=== PATIENT | male | born 1955 | race Caucasian/White ===

== ENCOUNTER 2023-10-17 07:50 | Inpatient (IN) ==
--- NOTE | 2023-10-17 08:09 | Emergency Department Note ---
Impression & Plan Respiratory failure, CHF (congestive heart failure), Respiratory acidosis, Anemia, Thrombocytopenia, Malignancy ED Provider Note NAME: MELISSA DASILVA AGE: 67 SEX: M : 1955 ARRIVES VIA: Ambulance INFORMANT: [Patient][EMS] ED PROVIDER(S): [Harsha Rodríguez MD] CHIEF COMPLAINT: Shortness of breath, back pain HISTORY OF PRESENT ILLNESS: The patient is a 67-year-old male with COPD who as per EMS, fell this morning. When they arrived, his O2 saturation was low, he was short of breath and complaining of back pain. He was given a DuoNeb. He was tried on CPAP without good result. He was maintained on a nonrebreather mask on the way to the hospital. The patient is a very poor historian. He is not forthcoming when questioned about his situation this morning. PMHx/PSHx/Social Hx: See Below PHYSICAL EXAM: GENERAL: Patient is in mild respiratory distress. HEENT: No acute trauma, normocephalic atraumatic, mucous membranes moist, no nasal congestion. NECK: No stridor, no adenopathy, no meningismus, trachea is midline. LUNGS: Clear to auscultation bilaterally when listening anterior, no wheeze, no rhonchi, breath sounds equal. Mild respiratory distress. Increased respiratory rate. Diminished breath sounds noted. HEART: Without murmurs gallops or rubs, regular rate and rhythm. Heart tones are quite distant. ABDOMEN: Soft, nontender, no peritonitis. Nontender umbilical hernia noted. EXTREMITIES: No cyanosis, full range of motion of all the joints without pain or difficulty. Moderate bilateral pedal edema with some chronic skin change. NEUROLOGIC: Somnolent, no acute motor or sensory deficits, no focal weakness. SKIN: No jaundice, no diaphoresis. DIFFERENTIAL DIAGNOSIS: Intracranial bleeding, pneumonia, CHF, CO2 retention, exacerbation of COPD, spine injury, anemia, among others. EMERGENCY DEPARTMENT PROCEDURES: MEDICAL DECISION MAKING: There is no leukocytosis. The patient was anemic with a hemoglobin just over 8. Platelet count was quite low in the 20s. Both the anemia and lower platelet count were new looking back at previous testing. No coagulopathy. Bedside ABG showed acidosis with a pH of 7.18. There was CO2 retention with a value of 114. ABG did show respiratory acidosis. There was no renal failure. CO2 was high at 41 consistent with the CO2 retention. Lactic acid level was not elevated making severe sepsis less likely. There was no concerning liver enzyme elevation. ECG showed a sinus tachycardia, no acute ischemia. Cardiac enzyme testing x 1 was not consistent with acute cardiac injury. Urinalysis did not show findings of infection. Respiratory bio fire was negative. Babesia and anaplasmosis screens were negative. Lyme disease testing was negative. Chest film did show heart failure with some potential congestion/mass to the lower lungs. Brain CT showed no acute bleed or mass effect. C-spine CT showed no acute fracture. Thoracic and lumbar spinal CTs showed no acute fractures. On exam, the patient was somnolent, at times hypoxic. The patient was aggressively managed given his presentation. He was immediately placed on BiPAP. He had a Graham catheter placed and was given IV Lasix. He received IV cefepime as empiric antibiotic coverage. He was ordered for DuoNeb and IV Solu-Medrol. The patient has made some improvement with the above interventions. I spoke with his brother who arrived at bedside. The patient would not want to be intubated unless all else failed. I did speak with the industrial organizational psychologist, Dr. Lopes. He spent a long time talking with the family. Patient will be hospitalized but the decision has been made to avoid intubation, the patient will be a DNR. The patient has multiple findings today that are critical. He may not survive this hospital stay. His family is aware. I did speak with the on-call hospitalist. Case management has been involved. Prior/Outside records/notes reviewed: Today's EMS notes describing his presentation and transport to this hospital. ECG per my interpretation: Indication was weakness and shortness of breath. The ECG shows a sinus tachycardia with a rate of 107. There is no acute ST elevation, no PVCs. The QTc is 440. Continuous Cardiac Monitoring per my interpretation: An order was placed for continuous cardiac monitoring. The monitor shows a rate of 104 with sinus tachycardia. Imaging/x-ray results per my interpretation: Chest x-ray shows what appears to be heart failure. There is some congestion at the lower lung consistent with potential infiltrate versus mass. Chronic Medical/Social conditions affecting care: History of COPD. Care/Management discussed with: Ski Top Trimmer here at [facility]-Dr. Lopes. Case management and the on-call hospitalist. Level of care consideration(s): After review of the information above and other included data: --I believe the patient requires escalation of care to admission Critical Care Note: I have personally spent 62 minutes of critical care time in the direct management of this patient. This includes bedside care, interpretation of diagnostic studies, and testing, discussion with consultants, patient, and family members, and other required patient management activities. This 62 minutes is in excess of all separately billable procedures. DISPOSITION: Admission Past Med/Surg History Problem List (Updated 10/17/23 @ 14:44 by Harsha Rodríguez MD) Malignancy (Acute) Thrombocytopenia (Acute) Anemia (Acute) Respiratory acidosis (Acute) CHF (congestive heart failure) (Acute) Respiratory failure (Acute) Cor pulmonale Acute on chronic heart failure with preserved ejection fraction Acute respiratory failure with hypoxia Diabetes mellitus Goals of care, counseling/discussion Ex-smoker Restrictive lung disease Exertional shortness of breath Obesity Chronic respiratory failure with hypoxia and hypercapnia Hypersomnia Medical History HTN (hypertension) Solitary fibrous neoplasm COPD with emphysema Social History Smoking Status: Unknown if ever smoked Tobacco Type: Cigarettes Age Started Using Tobacco: 11; Age Quit Using Tobacco: 66; packs per day: 3; Second Hand Exposure: Yes; Do You Dip or Chew Tobacco: No; Hx Alcohol Use: No Preferred Language: Albanian Feels Safe at Home: Yes Allergies Allergies Allergy/AdvReac Type Severity Reaction Status Date / Time No Known Allergies Allergy Verified 10/17/23 08:44 Home Meds Home Medications Medication Instructions Recorded Confirmed ascorbate calcium (vitamin C) 500 500 mg PO DAILY 05/17/23 10/17/23 mg tablet cranberry 400 mg capsule 400 mg PO DAILY 05/17/23 10/17/23 garlic 1,000 mg capsule 1,000 mg PO DAILY 05/17/23 10/17/23 hydrochlorothiazide 25 mg tablet 25 mg PO QDAY 05/17/23 10/17/23 lisinopril 10 mg tablet 10 mg PO DAILY 05/17/23 10/17/23 metoprolol succinate 25 mg 25 mg PO DAILY 05/17/23 10/17/23 tablet,extended release 24 hr saw palmetto 500 mg capsule 500 mg PO BID 05/17/23 10/17/23 turmeric 100 mg-diomedes 150 1 cap PO UD 05/17/23 10/17/23 mg-olive 50 mg-oreg 150 mg-capryl capsule metformin 500 mg tablet,extended 500 mg PO QAM 10/17/23 10/17/23 release 24 hr rosuvastatin 20 mg tablet 20 mg PO QAM 10/17/23 10/17/23 Previous Rx's Medication Instructions Recorded budesonide 160 mcg-glycopyr 9 2 inh inhalation BID #10.7 grams 05/18/23 mcg-formot 4.8 mcg/actuation HFA inhaler (JANZZzTheySayphere) ipratropium 0.5 mg-albuterol 3 mg 3 ml inhalation Q8H PRN shortness 05/18/23 (2.5 mg base)/3 mL nebulization of breath or wheezing #180 mL soln zolpidem 5 mg tablet 5 mg PO ONCE PRN sleep #2 tabs 08/18/23 Auto Titrating CPAP #1 ea 08/31/23 CPAP Supplies #1 ea 08/31/23 Results & Data (ED) Vital Signs Vital Signs - 24 hr 10/17/23 08:00 10/17/23 08:03 10/17/23 08:03 Pulse Rate 108 H 117 H Pulse Rate from SpO2 Sensor 108 H Pulse Rhythm Respiratory Rate 24 Respiratory Effort / Characteristics Short of Breath Respiratory Depth Respiratory Pattern Tachypnea Blood Pressure 141/47 H Blood Pressure Mean 78 Pulse Oximetry 95 Oxygen Delivery Method BiPAP Oxygen Flow Rate Fraction of Inspired Oxygen 50 SaO2/FiO2 Ratio Sepsis Recent Fever Within 48 Hours Sepsis New/Unexplained Change in Mental Status Sepsis Action Taken by Nursing 10/17/23 08:03 10/17/23 08:03 10/17/23 08:22 Pulse Rate 108 H 104 H Pulse Rate from SpO2 Sensor Pulse Rhythm Respiratory Rate 25 H 22 Respiratory Effort / Characteristics Spontaneous Labored Short of Breath Spontaneous Respiratory Depth Shallow Respiratory Pattern Tachypnea Blood Pressure 141/74 H Blood Pressure Mean 96 Pulse Oximetry 95 95 97 Oxygen Delivery Method Non-rebreather Non-rebreather Oxygen Flow Rate 15 15 Fraction of Inspired Oxygen 80 SaO2/FiO2 Ratio Sepsis Recent Fever Within 48 Hours No Sepsis New/Unexplained Change in Mental Status Yes Sepsis Action Taken by Nursing Physician Notified 10/17/23 08:42 10/17/23 09:01 10/17/23 09:06 Pulse Rate 102 H 96 H Pulse Rate from SpO2 Sensor 104 H 96 H Pulse Rhythm Respiratory Rate 24 22 Respiratory Effort / Characteristics Respiratory Depth Respiratory Pattern Blood Pressure 127/71 Blood Pressure Mean 89 Pulse Oximetry 89 L 90 50 L Oxygen Delivery Method BiPAP BiPAP Oxygen Flow Rate Fraction of Inspired Oxygen 50 50 SaO2/FiO2 Ratio Sepsis Recent Fever Within 48 Hours Sepsis New/Unexplained Change in Mental Status Sepsis Action Taken by Nursing 10/17/23 09:30 10/17/23 09:38 10/17/23 09:53 Pulse Rate 96 H 96 H 91 H Pulse Rate from SpO2 Sensor 95 H Pulse Rhythm Regular Respiratory Rate 20 22 22 Respiratory Effort / Characteristics Respiratory Depth Respiratory Pattern Blood Pressure 142/74 H 142/74 H Blood Pressure Mean 96 96 Pulse Oximetry 97 95 93 Oxygen Delivery Method BiPAP BiPAP BiPAP Oxygen Flow Rate Fraction of Inspired Oxygen 50 50 50 SaO2/FiO2 Ratio 186 Sepsis Recent Fever Within 48 Hours Sepsis New/Unexplained Change in Mental Status Sepsis Action Taken by Nursing 10/17/23 10:01 10/17/23 10:25 10/17/23 10:30 Pulse Rate 91 H 87 Pulse Rate from SpO2 Sensor 92 H 88 Pulse Rhythm Respiratory Rate 22 20 Respiratory Effort / Characteristics Respiratory Depth Respiratory Pattern Blood Pressure 119/69 124/68 Blood Pressure Mean 85 86 Pulse Oximetry 89 L 94 Oxygen Delivery Method BiPAP Oxygen Flow Rate Fraction of Inspired Oxygen 50 50 50 SaO2/FiO2 Ratio Sepsis Recent Fever Within 48 Hours Sepsis New/Unexplained Change in Mental Status Sepsis Action Taken by [facility] Medications Current Medication List: was personally reviewed by me Laboratory Data Attestation: I reviewed the patient's lab results. 10/17/23 11:18 10/17/23 08:00 Lab Results 10/17/23 10/17/23 10/17/23 Range/Units 08:00 08:06 08:07 WBC 6.11 (4.8-10.8) K/ul RBC 3.07 L (4.70-6.10) M/uL Hgb 8.4 L (14.0-18.0) g/dl POC Hgb 11.2 L (14.0-18.0) g/dl Hct 29.8 L (42.0-52.0) % POC Hct 33 L (42-52) % MCV 97.1 (80.0-100.0) fL MCH 27.4 (25.0-34.0) pg MCHC 28.2 L (32.0-36.0) g/dL RDW Std Deviation 52.1 H (36.4-46.3) fL RDW Coeff of Constantino 14.7 H (11.5-14.5) % Plt Count 29 L* (130-400) K/uL MPV 13.4 H (9.4-12.4) fL Immature Gran % (Auto) 1.3 % Neut % (Auto) 76.6 % Lymph % (Auto) 14.1 % [place] % (Auto) 6.7 % Eos % (Auto) 1.1 % Baso % (Auto) 0.2 % Neut # (Auto) 4.68 (1.40-6.50) K/uL Lymph # (Auto) 0.86 L (1.20-3.40) K/uL [place] # (Auto) 0.41 (0.11-0.59) K/uL Eos # (Auto) 0.07 (0.00-0.50) K/uL Baso # (Auto) 0.01 (0.00-0.20) K/uL Immature Gran # (Auto) 0.08 (0.01-0.20) K/uL Platelet Estimate Signific. Decreased L (Normal) PT Cancelled INR Cancelled APTT Cancelled PTT Ratio Cancelled POC pH 7.18 L* (7.35-7.45) POC pCO2 114 H (35-46) mmHg POC pO2 45 L (80-95) mmHg POC HCO3 43 H (19-24) lisbeth/L POC Total CO2 > 40 H* (24-31) mmol/L POC Base Excess 14.0 H (-9-1.8) lisbeth/L POC ABG O2 Sat 64.0 L (90-95) % POC Sodium 143 (135-144) mmol/L Sodium 145 (136-145) mmol/L POC Potassium 3.9 (3.3-5.0) mmol/L Potassium 4.2 (3.5-5.1) mmol/L Chloride 100 (98-107) mmol/L Carbon Dioxide 41 H* (21-32) mmol/L Anion Gap 4 (3-11) BUN 22 (6-23) mg/dl Creatinine 1.02 (0.6-1.4) mg/dl Est Cr Clr Drug Dosing 91.6 ml/min Est GFR ( Amer) 87.1 ml/min Est GFR (Non-Af Amer) 75.2 ml/min BUN/Creatinine Ratio 21.6 H (10-20) Glucose 194 H (70-99(Fasting)) mg/dl Lactate 1.7 (0.4-2.0) mmol/L Calcium 9.4 (8.6-10.3) mg/dl Magnesium 2.1 (1.7-2.4) mg/dl Total Bilirubin 0.3 (0.2-1.0) mg/dl AST 19 (13-39) U/L ALT 19 (7-52) U/L Alkaline Phosphatase 72 (34-104) U/L Troponin I High Sens 12.5 (0-20) pg/ml Total Protein 7.2 (6.0-8.3) gm/dl Albumin 4.0 (3.4-5.0) gm/dl Globulin 3.2 (2.5-4.0) gm/dl Albumin/Globulin Ratio 1.3 (0.9-2) Urine Color Urine Appearance (Clear) Urine pH (4.5-7.5) Ur Specific [place] (1.000-1.030) Urine Protein (Negative) Urine Glucose (UA) (Negative) Urine Ketones (Negative) Urine Blood (Negative) Urine Nitrite (Negative) Urine Bilirubin (Negative) Urine Urobilinogen (Negative) Ur Leukocyte Esterase (Negative) Urine WBC (Auto) (0-5) /hpf Urine RBC (Auto) (0-2) /hpf U Hyaline Cast (Auto) (0-2) /lpf U Epithel Cells (Auto) (0-2) /hpf Urine Bacteria (Auto) (None Seen) Adenovirus (PCR) (NotDetected) Anaplasma Smear Babesia Smear B. pertussis DNA (PCR) (NotDetected) B.parapertussis DNA PCR (NotDetected) Lyme Disease Screen (Negative) C. pneumoniae DNA (PCR) (NotDetected) Coronavirus OC43 (PCR) (NotDetected) Coronavirus HKU1 (PCR) (NotDetected) Coronavirus 229E (PCR) (NotDetected) SARS-CoV-2 (PCR) (NotDetected) Coronavirus NL63 (PCR) (NotDetected) Human Metapneumovir PCR (NotDetected) Influenza Type A (PCR) (NotDetected) Influenza Type B (PCR) (NotDetected) M. pneumoniae (PCR) (NotDetected) Parainfluenza 1 (PCR) (NotDetected) Parainfluenza 2 (PCR) (NotDetected) Parainfluenza 3 (PCR) (NotDetected) Parainfluenza 4 (PCR) (NotDetected) RSV (PCR) (NotDetected) Entero/Rhino (PCR) (NotDetected) 10/17/23 10/17/23 10/17/23 Range/Units 08:38 09:14 09:20 WBC (4.8-10.8) K/ul RBC (4.70-6.10) M/uL Hgb (14.0-18.0) g/dl POC Hgb (14.0-18.0) g/dl Hct (42.0-52.0) % POC Hct (42-52) % MCV (80.0-100.0) fL MCH (25.0-34.0) pg MCHC (32.0-36.0) g/dL RDW Std Deviation (36.4-46.3) fL RDW Coeff of Constantino (11.5-14.5) % Plt Count (130-400) K/uL MPV (9.4-12.4) fL Immature Gran % (Auto) % Neut % (Auto) % Lymph % (Auto) % [place] % (Auto) % Eos % (Auto) % Baso % (Auto) % Neut # (Auto) (1.40-6.50) K/uL Lymph # (Auto) (1.20-3.40) K/uL [place] # (Auto) (0.11-0.59) K/uL Eos # (Auto) (0.00-0.50) K/uL Baso # (Auto) (0.00-0.20) K/uL Immature Gran # (Auto) (0.01-0.20) K/uL Platelet Estimate (Normal) PT INR APTT PTT Ratio POC pH (7.35-7.45) POC pCO2 (35-46) mmHg POC pO2 (80-95) mmHg POC HCO3 (19-24) lisbeth/L POC Total CO2 (24-31) mmol/L POC Base Excess (-9-1.8) lisbeth/L POC ABG O2 Sat (90-95) % POC Sodium (135-144) mmol/L Sodium (136-145) mmol/L POC Potassium (3.3-5.0) mmol/L Potassium (3.5-5.1) mmol/L Chloride (98-107) mmol/L Carbon Dioxide (21-32) mmol/L Anion Gap (3-11) BUN (6-23) mg/dl Creatinine (0.6-1.4) mg/dl Est Cr Clr Drug Dosing ml/min Est GFR ( Amer) ml/min Est GFR (Non-Af Amer) ml/min BUN/Creatinine Ratio (10-20) Glucose (70-99(Fasting)) mg/dl Lactate (0.4-2.0) mmol/L Calcium (8.6-10.3) mg/dl Magnesium (1.7-2.4) mg/dl Total Bilirubin (0.2-1.0) mg/dl AST (13-39) U/L ALT (7-52) U/L Alkaline Phosphatase (34-104) U/L Troponin I High Sens (0-20) pg/ml Total Protein (6.0-8.3) gm/dl Albumin (3.4-5.0) gm/dl Globulin (2.5-4.0) gm/dl Albumin/Globulin Ratio (0.9-2) Urine Color Yellow Urine Appearance Clear (Clear) Urine pH 6.0 (4.5-7.5) Ur Specific [place] 1.019 (1.000-1.030) Urine Protein 3+ H (Negative) Urine Glucose (UA) Negative (Negative) Urine Ketones Negative (Negative) Urine Blood Negative (Negative) Urine Nitrite Negative (Negative) Urine Bilirubin Negative (Negative) Urine Urobilinogen Negative (Negative) Ur Leukocyte Esterase Negative (Negative) Urine WBC (Auto) 0-5 (0-5) /hpf Urine RBC (Auto) 3-5 H (0-2) /hpf U Hyaline Cast (Auto) 3-5 H (0-2) /lpf U Epithel Cells (Auto) 0-2 (0-2) /hpf Urine Bacteria (Auto) None Seen (None Seen) Adenovirus (PCR) Not Detected (NotDetected) Anaplasma Smear See Comment Babesia Smear See Comment B. pertussis DNA (PCR) Not Detected (NotDetected) B.parapertussis DNA PCR Not Detected (NotDetected) Lyme Disease Screen Negative (Negative) C. pneumoniae DNA (PCR) Not Detected (NotDetected) Coronavirus OC43 (PCR) Not Detected (NotDetected) Coronavirus HKU1 (PCR) Not Detected (NotDetected) Coronavirus 229E (PCR) Not Detected (NotDetected) SARS-CoV-2 (PCR) Not Detected (NotDetected) Coronavirus NL63 (PCR) Not Detected (NotDetected) Human Metapneumovir PCR Not Detected (NotDetected) Influenza Type A (PCR) Not Detected (NotDetected) Influenza Type B (PCR) Not Detected (NotDetected) M. pneumoniae (PCR) Not Detected (NotDetected) Parainfluenza 1 (PCR) Not Detected (NotDetected) Parainfluenza 2 (PCR) Not Detected (NotDetected) Parainfluenza 3 (PCR) Not Detected (NotDetected) Parainfluenza 4 (PCR) Not Detected (NotDetected) RSV (PCR) Not Detected (NotDetected) Entero/Rhino (PCR) Not Detected (NotDetected) 10/17/23 10/17/23 Range/Units 09:30 10:13 WBC (4.8-10.8) K/ul RBC (4.70-6.10) M/uL Hgb (14.0-18.0) g/dl POC Hgb 10.9 L (14.0-18.0) g/dl Hct (42.0-52.0) % POC Hct 32 L (42-52) % MCV (80.0-100.0) fL MCH (25.0-34.0) pg MCHC (32.0-36.0) g/dL RDW Std Deviation (36.4-46.3) fL RDW Coeff of Constantino (11.5-14.5) % Plt Count (130-400) K/uL MPV (9.4-12.4) fL Immature Gran % (Auto) % Neut % (Auto) % Lymph % (Auto) % [place] % (Auto) % Eos % (Auto) % Baso % (Auto) % Neut # (Auto) (1.40-6.50) K/uL Lymph # (Auto) (1.20-3.40) K/uL [place] # (Auto) (0.11-0.59) K/uL Eos # (Auto) (0.00-0.50) K/uL Baso # (Auto) (0.00-0.20) K/uL Immature Gran # (Auto) (0.01-0.20) K/uL Platelet Estimate (Normal) PT 10.8 INR 1.0 APTT 21 PTT Ratio 0.8 POC pH 7.25 L (7.35-7.45) POC pCO2 99 H (35-46) mmHg POC pO2 52 L (80-95) mmHg POC HCO3 44 H (19-24) lisbeth/L POC Total CO2 > 40 H* (24-31) mmol/L POC Base Excess 16.0 H (-9-1.8) lisbeth/L POC ABG O2 Sat 77.0 L (90-95) % POC Sodium 144 (135-144) mmol/L Sodium (136-145) mmol/L POC Potassium 3.9 (3.3-5.0) mmol/L Potassium (3.5-5.1) mmol/L Chloride (98-107) mmol/L Carbon Dioxide (21-32) mmol/L Anion Gap (3-11) BUN (6-23) mg/dl Creatinine (0.6-1.4) mg/dl Est Cr Clr Drug Dosing ml/min Est GFR ( Amer) ml/min Est GFR (Non-Af Amer) ml/min BUN/Creatinine Ratio (10-20) Glucose (70-99(Fasting)) mg/dl Lactate (0.4-2.0) mmol/L Calcium (8.6-10.3) mg/dl Magnesium (1.7-2.4) mg/dl Total Bilirubin (0.2-1.0) mg/dl AST (13-39) U/L ALT (7-52) U/L Alkaline Phosphatase (34-104) U/L Troponin I High Sens (0-20) pg/ml Total Protein (6.0-8.3) gm/dl Albumin (3.4-5.0) gm/dl Globulin (2.5-4.0) gm/dl Albumin/Globulin Ratio (0.9-2) Urine Color Urine Appearance (Clear) Urine pH (4.5-7.5) Ur Specific [place] (1.000-1.030) Urine Protein (Negative) Urine Glucose (UA) (Negative) Urine Ketones (Negative) Urine Blood (Negative) Urine Nitrite (Negative) Urine Bilirubin (Negative) Urine Urobilinogen (Negative) Ur Leukocyte Esterase (Negative) Urine WBC (Auto) (0-5) /hpf Urine RBC (Auto) (0-2) /hpf U Hyaline Cast (Auto) (0-2) /lpf U Epithel Cells (Auto) (0-2) /hpf Urine Bacteria (Auto) (None Seen) Adenovirus (PCR) (NotDetected) Anaplasma Smear Babesia Smear B. pertussis DNA (PCR) (NotDetected) B.parapertussis DNA PCR (NotDetected) Lyme Disease Screen (Negative) C. pneumoniae DNA (PCR) (NotDetected) Coronavirus OC43 (PCR) (NotDetected) Coronavirus HKU1 (PCR) (NotDetected) Coronavirus 229E (PCR) (NotDetected) SARS-CoV-2 (PCR) (NotDetected) Coronavirus NL63 (PCR) (NotDetected) Human Metapneumovir PCR (NotDetected) Influenza Type A (PCR) (NotDetected) Influenza Type B (PCR) (NotDetected) M. pneumoniae (PCR) (NotDetected) Parainfluenza 1 (PCR) (NotDetected) Parainfluenza 2 (PCR) (NotDetected) Parainfluenza 3 (PCR) (NotDetected) Parainfluenza 4 (PCR) (NotDetected) RSV (PCR) (NotDetected) Entero/Rhino (PCR) (NotDetected) Administered Medications Discontinued Medications Albuterol (Albut/Ipratrop 3mg/0.5mg Neb 3 Ml Vial) 3 ml NEB NOW STA; Protocol Stop: 10/17/23 08:01 Last Admin: 10/17/23 13:12 Dose: Not Given Documented By: MARIN Furosemide (Furosemide 40 Mg/4 Ml Vial) 40 mg IV ONE ONE Stop: 10/17/23 08:47 Last Admin: 10/17/23 09:07 Dose: 40 mg Documented By: SHIRLEY Cefepime HCl (Maxipime) 2,000 mg in 20 mls @ 5 mls/min IV NOW STA; Protocol Stop: 10/17/23 08:50 Last Admin: 10/17/23 09:07 Dose: 5 mls/min Documented By: SHIRLEY Vancomycin HCl 2,750 mg/ (Sodium Chloride) 555 mls @ 200 mls/hr IV NOW ONE Stop: 10/17/23 13:46 Last Infusion: 10/17/23 14:11 Dose: Infused Documented By: Admin: 10/17/23 11:12 Dose: 200 mls/hr Documented By: FERMÍN Metronidazole (Flagyl) 500 mg in 100 mls @ 100 mls/hr IV NOW STA; Protocol Stop: 10/17/23 11:54 Last Infusion: 10/17/23 13:11 Dose: Infused Documented By: Admin: 10/17/23 11:02 Dose: 100 mls/hr Documented By: FERMÍN Methylprednisolone (Methylprednisolone 125 Mg/2 Ml Vial) 60 mg IV NOW STA Stop: 10/17/23 08:02 Last Admin: 10/17/23 08:20 Dose: 0.9 mg Documented By: NATHANAEL Metronidazole (Metronidazole 500 Mg/100 Ml Bag) Confirm Administered Dose 500 mg IV .STK-MED ONE Stop: 10/17/23 10:56 Last Admin: 10/17/23 11:02 Dose: Not Given Documented By: FERMÍN Imaging Data Radiologist's Impression: Chest X-Ray 10/17/23 08:00 XR chest 1V portable HISTORY: 67 years-old Male Dyspnea acute shortness of breath COMPARISON: None TECHNIQUE: AP view of the chest FINDINGS: Cardiac silhouette is enlarged. Lung apices are partially obscured by the patient's chin. No pneumothorax. Layering right pleural effusion with right greater than left bibasilar consolidation. Pulmonary vascular congestion with interstitial coarsening and intermixed airspace densities. Bones appear grossly intact. IMPRESSION: 1. Cardiomegaly with mixed interstitial and alveolar opacities suggestive of pulmonary edema versus multifocal pneumonia. 2. Layering right pleural effusion. ACT 112: Negative or not required by law. The above report was generated using voice recognition software. It may contain grammatical, syntax or spelling errors. Electronically signed by: Manny Paredes M.D. 10/17/2023 8:[address] 10/17/23 08:09 CT SCAN OF THE CERVICAL SPINE CLINICAL HISTORY: Fall. COMPARISON STUDY: PET/CT dated 09/13/2022. TECHNIQUE: CT scan of the cervical spine is performed from the skull base to the upper thoracic spine. Images are reviewed in the axial, sagittal, and coronal planes. IV contrast was not administered for this examination. A dose lowering technique was utilized adhering to the principles of ALARA. FINDINGS: Skeletal structures: The skeletal structures are osteopenic. There is no evidence of fracture or subluxation involving the cervical spine. Vertebral body height and alignment are maintained. Mild anterior wedging of C6 is similar to previous, as is a minimal chronic superior endplate compression deformity of T2. There is straightening of the cervical lordosis. Anterior osteophytes are seen throughout. The odontoid process and lateral masses are intact. The atlantoaxial articulation is preserved noting productive degenerative change. The spinous processes appear intact. There is mild multilevel cervical spondylosis. Uncovertebral and facet arthropathy contribute to neural foraminal narrowing at several levels. Intervertebral discs: There is mild disc space narrowing at C6-C7 and C7-T1. The remaining disc spaces appear maintained. Central canal: A posterior disc osteophyte complex at C6-C7 may contribute to acquired compromise of the central canal. Soft tissues: The prevertebral and paraspinous soft tissues are within normal limits. There is atherosclerotic calcification of the carotid bulbs. Calcified sialoliths are noted in the parotid glands. Calvarium: The visualized calvarium at the skull base appears intact. Brain parenchyma: Partially visualized brain parenchyma at the skull base is within normal limits. Mastoids: A left mastoid effusion is noted. The right mastoid air cells are well pneumatized. Lung apices: Intralobular septal thickening is seen in the upper lobes suggesting congestive failure. A right pleural effusion is partially imaged. Bilateral airspace opacities likely represent pulmonary edema. IMPRESSION: 1. There is no evidence of fracture or subluxation involving the cervical spine. 2. Osteopenia and mild spondylotic changes above. 3. Partially imaged upper lobe lung parenchyma shows evidence of congestive failure and pulmonary edema. Correlate clinically. ACT 112: Negative or not required by law. Electronically signed by: Harsha Weeks M.D. 10/17/2023 9:[address] 10/17/23 08:09 CT SCAN OF THE BRAIN WITHOUT IV CONTRAST CLINICAL HISTORY: Change in mental status. COMPARISON STUDY: No priors. TECHNIQUE: Unenhanced axial CT scan of the brain is performed from the vertex to the skull base. A dose lowering technique was utilized adhering to the principles of ALARA. FINDINGS: Brain parenchyma: There is age-related involutional change noting mild subcortical and periventricular microangiopathic disease. There is no hemorrhage, mass effect, or evidence of acute territorial ischemia by CT criteria. Muniz-white matter differentiation is preserved. No extra-axial fluid collection is seen. Ventricles, sulci, cisterns: Prominent secondary to involutional change. Intracranial vasculature: There is atherosclerotic calcification of the cavernous carotid and vertebral arteries. Calvarium: Unremarkable. Sinuses and mastoids: There is trace mucosal thickening in the right maxillary antrum. The remaining paranasal sinuses are clear. There is a left mastoid effusion. The right mastoid air cells are well pneumatized. Orbits: The bony orbits are grossly intact. IMPRESSION: There is no hemorrhage, mass effect, or evidence of acute territorial ischemia by CT criteria. ACT 112: Negative or not required by law. Electronically signed by: Harsha Weeks M.D. 10/17/2023 9:[address] 10/17/23 08:09 CT SCAN OF THE LUMBAR SPINE WITHOUT IV CONTRAST CLINICAL HISTORY: Fall. Low back pain. COMPARISON STUDY: PET/CT dated 09/13/2022. TECHNIQUE: CT scan of the lumbar spine is performed from the lower thoracic spine to the sacrum. Images are reviewed in the axial, sagittal, and coronal planes. IV contrast was not administered for this examination. A dose lowering technique was utilized adhering to the principles of ALARA. CT DOSE: 3976.15 mGy.cm FINDINGS: The skeletal structures are osteopenic. There is no evidence of acute fracture or malalignment. Vertebral body height is maintained throughout the lumbar spine. There are bilateral pars defects at L5 with 12 mm of anterolisthesis at L5-S1. Alignment is otherwise preserved. The transverse and spinous processes appear intact. No lytic or blastic lesion is seen. Anterior and lateral marginal osteophytes are seen throughout. There is severe disc space narrowing at L5-S1. Only minimal disc space narrowing is seen at the remaining lumbar levels. There is no CT evidence of large disc herniation or high-grade central canal stenosis. Facet arthropathy is noted in the lower lumbar region. Bilateral neural foraminal narrowing is seen at L5-S1. The visualized bony pelvis appears intact. Degenerative change is noted in the sacroiliac joints. The paraspinous soft tissues are normal as imaged. The abdominal aorta is normal in course and caliber noting moderate atherosclerotic calcification. No retroperitoneal lymphadenopathy is seen. A left pleural effusion is partially visualized. IMPRESSION: 1. There is no evidence of acute fracture or malalignment involving the lumbar spine. 2. Bilateral pars defects at L5 with severe disc space narrowing and anterolisthesis at L5-S1. 3. A left pleural effusion is partially visualized. ACT 112: Negative or not required by law. Dictated: 10/17/2023 9:06 AM Transcribed: 10/17/2023 9:18 AM [facility] [id number] [email or web address] Electronically signed by: Harsha Weeks M.D. 10/17/2023 9:[address] 10/17/23 08:09 CT thoracic spine wo con HISTORY: 67 years-old Male fall, pain acute mid back pain status post fall COMPARISON: CT lumbar spine of same day, PET CT 09/13/2022 TECHNIQUE: Multiple axial CT images of the thoracic spine were obtained without IV contrast. A dose lowering technique was used consistent with the principals of ALARA. FINDINGS: Mild chronic superior endplate T2 compression deformity. There is mostly mild multilevel intervertebral disc space narrowing with moderate bridging osteophytosis and moderate facet arthrosis. No acute fracture, subluxation, endplate erosion or destructive bone lesion identified. No acute displaced rib fracture identified. Suboptimal dilation of the central canal and neural foramen by CT technique. No high-grade central canal or neural foraminal narrowing identified. Small pleural effusions. There is a large masslike focus involving the posterior and basal aspects of the right hemithorax measuring up to 16 cm which appears to have increased in size from 01/31/2023 exam. Cardiomegaly. There are a few borderline enlarged nonspecific mediastinal and hilar lymph nodes. Intralobular septal thickening with intermixed groundglass and consolidative opacities within the lungs. IMPRESSION: 1. No acute fracture or subluxation identified involving the thoracic spine. 2. Cardiomegaly with interstitial pulmonary edema and nonspecific right greater than left consolidative opacities. 3. Layering pleural effusions. 4. Large mass of the lower right hemithorax redemonstrated which appears to have increased in size from 01/31/2023. ACT 112: Negative or not required by law. The above report was generated using voice recognition software. It may contain grammatical, syntax or spelling errors. Electronically signed by: Manny Paredes M.D. 10/17/2023 9:36 AM Discharge Plan Visit Data Chief Complaint: Shortness of Breath/Dyspnea ED Provider: Harsha Rodríguez Discharge Problem: Respiratory failure, CHF (congestive heart failure), Respiratory acidosis, Anemia, Thrombocytopenia, Malignancy Patient Disposition: Admitted As Inpatient Condition: Serious Discharge Instructions Interventions: ED Discharge Assessment Last Done: 10/17/23 12:52 Discharge Problem: Respiratory failure Qualifiers: Chronicity: acute Respiratory failure complication: hypoxia and hypercapnia Q ualified Code(s): J96.01 - Acute respiratory failure with hypoxia; J96.02 - Acute respiratory failure with hypercapnia CHF (congestive heart failure) Qualifiers: Heart failure type: unspecified Heart failure chronicity: acute Qualified Code(s): I50.9 - Heart failure, unspecified Anemia Qualifiers: Anemia type: unspecified type Qualified Code(s): D64.9 - Anemia, unspecified
[2023-10-17] MEDS: methylPREDNISolone 125 MG/2 ML VIAL IV STA (08:20)
[2023-10-17 08:21] LABS: iSTAT Arterial Blood Gas HCO3 43 meg/L (19-24); iSTAT Arterial Blood Gas pCO2 114 mmHg (35-46); iSTAT Arterial Blood Gas pH 7.18 (7.35-7.45); iSTAT Arterial Blood Gas pO2 45 mmHg (80-95); iSTAT Carbon Dioxide > 40 mmol/L (24-31); iSTAT Hematocrit 33 % (42-52); iSTAT Hemoglobin 11.2 g/dl (14.0-18.0); iSTAT Potassium 3.9 mmol/L (3.3-5.0); iSTAT Sodium 143 mmol/L (135-144)
--- NOTE | 2023-10-17 08:33 | XRay Report ---
XR chest 1V portable HISTORY: 67 years-old Male Dyspnea acute shortness of breath COMPARISON: None TECHNIQUE: AP view of the chest FINDINGS: Cardiac silhouette is enlarged. Lung apices are partially obscured by the patient's chin. No pneumoth orax. Layering right pleural effusion with right greater than left bibasilar consolidation. Pulmonary vascular congestion with interstitial coarsening and intermixed airspace densities. Bones appear gayle ssly intact. IMPRESSION: 1. Cardiomegaly with mixed interstitial and alveolar opacities suggestive of pulmonary edema versus m ultifocal pneumonia. 2. Layering right pleural effusion. ACT 112: Negative or not required by law. The above report was generated using voice recognition software. It may contain grammatical, syntax o r spelling errors. Electronically signed by: Manny Paredes M.D. 10/17/2023 8:31 AM
[2023-10-17 09:01] LABS: Basophils # (auto) 0.01 K/uL (0.00-0.20); Basophils % (auto) 0.2 %; Eosinophils # (auto) 0.07 K/uL (0.00-0.50); Eosinophils % (auto) 1.1 %; Hematocrit (blood only) 29.8 % (42.0-52.0); Hemoglobin 8.4 g/dl (14.0-18.0); Immature Granulocytes # (auto) 0.08 K/uL (0.01-0.20); Immature Granulocytes % (auto) 1.3 %; Lymphocytes # (auto) 0.86 K/uL (1.20-3.40); Lymphocytes % (auto) 14.1 %; Mean Corpuscular Hemoglobin 27.4 pg (25.0-34.0); Mean Corpuscular Hgb Conc 28.2 g/dL (32.0-36.0); Mean Corpuscular Volume 97.1 fL (80.0-100.0); Mean Platelet Volume 13.4 fL (9.4-12.4); Monocytes # (auto) 0.41 K/uL (0.11-0.59); Monocytes % (auto) 6.7 %; Neutrophils # (auto) 4.68 K/uL (1.40-6.50); Neutrophils % (auto) 76.6 %; Platelet Count 29 K/uL (130-400); Platelet Estimate Signific. Decreased (Normal); RDW Coefficient of Variation 14.7 % (11.5-14.5); RDW Standard Deviation 52.1 fL (36.4-46.3); Red Blood Count 3.07 M/uL (4.70-6.10); White Blood Count 6.11 K/ul (4.8-10.8)
[2023-10-17 09:02] LABS: Albumin Globulin Ratio 1.3 (0.9-2); BUN Creatinine Ratio 21.6 (10-20); Bilirubin,Total 0.3 mg/dl (0.2-1.0); Calcium 9.4 mg/dl (8.6-10.3); Creatinine Clr Calc Pharmacy 91.6 ml/min; Est GFR (African American) 87.1 ml/min; Est GFR (Non-African American) 75.2 ml/min; Globulin 3.2 gm/dl (2.5-4.0); Magnesium 2.1 mg/dl (1.7-2.4); Potassium 4.2 mmol/L (3.5-5.1); Total Protein 7.2 gm/dl (6.0-8.3); Troponin I High Sensitivity 12.5 pg/ml (0-20)
[2023-10-17] MEDS: CEFEPIME 2,000 MG/20 ML VIAL IV STA (09:07)
[2023-10-17] MEDS: FUROSEMIDE 40 MG/4 ML VIAL IV ONE (09:07)
--- NOTE | 2023-10-17 09:07 | CT Scan Report ---
CT SCAN OF THE BRAIN WITHOUT IV CONTRAST CLINICAL HISTORY: Change in mental status. COMPARISON STUDY: No priors. TECHNIQUE: Unenhanced axial CT scan of the brain is performed from the vertex to the skull base. A do se lowering technique was utilized adhering to the principles of ALARA. FINDINGS: Brain parenchyma: There is age-related involutional change noting mild subcortical and periventricula r microangiopathic disease. There is no hemorrhage, mass effect, or evidence of acute territorial isc hemia by CT criteria. Muniz-white matter differentiation is preserved. No extra-axial fluid collection is seen. Ventricles, sulci, cisterns: Prominent secondary to involutional change. Intracranial vasculature: There is atherosclerotic calcification of the cavernous carotid and vertebr al arteries. Calvarium: Unremarkable. Sinuses and mastoids: There is trace mucosal thickening in the right maxillary antrum. The remaining paranasal sinuses are clear. There is a left mastoid effusion. The right mastoid air cells are well p neumatized. Orbits: The bony orbits are grossly intact. IMPRESSION: There is no hemorrhage, mass effect, or evidence of acute territorial ischemia by CT tod morrell. ACT 112: Negative or not required by law. Electronically signed by: Harsha Weeks M.D. 10/17/2023 9:06 AM
--- NOTE | 2023-10-17 09:11 | Electrocardiogram Report ---
Test Reason : Blood Pressure : / mmHG Vent. Rate : 107 BPM Atrial Rate : 107 BPM P-R Int : 204 ms QRS Dur : 090 ms QT Int : 330 ms P-R-T Axes : 031 018 027 degrees QTc Int : 440 ms Sinus tachycardia Possible Left atrial enlargement Borderline ECG No previous ECGs available Confirmed by Riley Gorman ([id number]) on 10/17/2023 9:10:33 AM Referred By: Confirmed By:Dominic Gorman
--- NOTE | 2023-10-17 09:18 | CT Scan Report ---
CT SCAN OF THE CERVICAL SPINE CLINICAL HISTORY: Fall. COMPARISON STUDY: PET/CT dated 09/13/2022. TECHNIQUE: CT scan of the cervical spine is performed from the skull base to the upper thoracic spine . Images are reviewed in the axial, sagittal, and coronal planes. IV contrast was not administered fo r this examination. A dose lowering technique was utilized adhering to the principles of ALARA. FINDINGS: Skeletal structures: The skeletal structures are osteopenic. There is no evidence of fracture or subl uxation involving the cervical spine. Vertebral body height and alignment are maintained. Mild anteri or wedging of C6 is similar to previous, as is a minimal chronic superior endplate compression deform ity of T2. There is straightening of the cervical lordosis. Anterior osteophytes are seen throughout. The odontoid process and lateral masses are intact. The atlantoaxial articulation is preserved notin g productive degenerative change. The spinous processes appear intact. There is mild multilevel cervi napoleon spondylosis. Uncovertebral and facet arthropathy contribute to neural foraminal narrowing at inga ral levels. Intervertebral discs: There is mild disc space narrowing at C6-C7 and C7-T1. The remaining disc space s appear maintained. Central canal: A posterior disc osteophyte complex at C6-C7 may contribute to acquired compromise of the central canal. Soft tissues: The prevertebral and paraspinous soft tissues are within normal limits. There is athero sclerotic calcification of the carotid bulbs. Calcified sialoliths are noted in the parotid glands. Calvarium: The visualized calvarium at the skull base appears intact. Brain parenchyma: Partially visualized brain parenchyma at the skull base is within normal limits. Mastoids: A left mastoid effusion is noted. The right mastoid air cells are well pneumatized. Lung apices: Intralobular septal thickening is seen in the upper lobes suggesting congestive failure. A right pleural effusion is partially imaged. Bilateral airspace opacities likely represent pulmonar y edema. IMPRESSION: 1. There is no evidence of fracture or subluxation involving the cervical spine. 2. Osteopenia and mild spondylotic changes above. 3. Partially imaged upper lobe lung parenchyma shows evidence of congestive failure and pulmonary eric ma. Correlate clinically. ACT 112: Negative or not required by law. Electronically signed by: Harsha Weeks M.D. 10/17/2023 9:15 AM
--- NOTE | 2023-10-17 09:28 | CT Scan Report ---
CT SCAN OF THE LUMBAR SPINE WITHOUT IV CONTRAST CLINICAL HISTORY: Fall. Low back pain. COMPARISON STUDY: PET/CT dated 09/13/2022. TECHNIQUE: CT scan of the lumbar spine is performed from the lower thoracic spine to the sacrum. Imag es are reviewed in the axial, sagittal, and coronal planes. IV contrast was not administered for this examination. A dose lowering technique was utilized adhering to the principles of ALARA. CT DOSE: 3976.15 mGy.cm FINDINGS: The skeletal structures are osteopenic. There is no evidence of acute fracture or malalignm ent. Vertebral body height is maintained throughout the lumbar spine. There are bilateral pars defect s at L5 with 12 mm of anterolisthesis at L5-S1. Alignment is otherwise preserved. The transverse and spinous processes appear intact. No lytic or blastic lesion is seen. Anterior and lateral marginal os teophytes are seen throughout. There is severe disc space narrowing at L5-S1. Only minimal disc space narrowing is seen at the remaining lumbar levels. There is no CT evidence of large disc herniation o r high-grade central canal stenosis. Facet arthropathy is noted in the lower lumbar region. Bilateral neural foraminal narrowing is seen at L5-S1. The visualized bony pelvis appears intact. Degenerative change is noted in the sacroiliac joints. The paraspinous soft tissues are normal as imaged. The abd ominal aorta is normal in course and caliber noting moderate atherosclerotic calcification. No retrop eritoneal lymphadenopathy is seen. A left pleural effusion is partially visualized. IMPRESSION: 1. There is no evidence of acute fracture or malalignment involving the lumbar spine. 2. Bilateral pars defects at L5 with severe disc space narrowing and anterolisthesis at L5-S1. 3. A left pleural effusion is partially visualized. ACT 112: Negative or not required by law. Dictated: 10/17/2023 9:06 AM Transcribed: 10/17/2023 9:18 AM [facility] [id number] [email or web address] Electronically signed by: Harsha Weeks M.D. 10/17/2023 9:27 AM
--- NOTE | 2023-10-17 09:29 | Critical Care Consultation ---
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 Patient's mental status significantly improved, checked serial ABGs. Was able to have discussion with patient's brother and sister and patient's. All in agr eement that patient would not want heroics in event of cardiac arrest. All in agreement that patient would not want intubation in event of respiratory insufficiency. Agreeable with continuing current level of care. Emphasized patient has significant lung damage and scarring that cure and recovery is going to be negligible, the goal is to limit further decline. We will continue steroids. Additional family to come to bedside and hopefully have discussion and establish healthcare power of ip attorney. (2) Thrombocytopenia: (3) Anemia: (4) Respiratory acidosis: (5) Cor pulmonale: (6) Respiratory failure: (7) Acute respiratory failure with hypoxia: (8) Ex-smoker: (9) Spindle cell carcinoma of thorax: (10) Chronic respiratory failure with hypoxia and hypercapnia: Supervising Physician Co-Signing Physician Notes I have personally spent 120 minutes of critical care time in the direct management of this patient. This is a life/limb threatening event. This includes time spent evaluating patient, direct bedside care, chart review, placing orders, interpretation of diagnostic studies, discussion with consult ants, patient, and/or family members regarding treatment decisions, as well as other required patient management activities. This time is exclusive of all separately billable procedures, and teaching time and separate from and in addition to any other critical care service time. History of Present Illness Reason for Consultation: Acute hypercapnic respiratory failure Requesting Physician: Harsha Rodríguez MD History of Present Illness Patient is a 67-year-old male who is unable to provide medical history due to dense encephalopathy and active BiPAP treatment. History is obtained from prior records as well as the ED provider. Additional information was also able to be obtained from the patient's brother at bedside. I also was able to obtain prior records from the [facility] medical team. Briefly the patient relocated to the area from the [facility] approximately 1 year ago. During that time he was found to have a large spindle cell mass in his chest. He has been seen by thoracic surgery and was deemed an acceptable surgical risk for surgical resection. He has also been seen by pulmonary medicine and has significant oxygen dependent COPD with extremely poor lung function. He has greater than [id number] smoking history. There is also a incidental finding of a mass in the liver which has yet to be evaluated/obtain tissue diagnosis. There is obvious concern that this could reflect malignancy. He has been evaluated by sleep medicine and was advised to wear CPAP with oxygen, he does not wear this device secondary to not liking the mask/claustrophobia. 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 He is participating in pulmonary rehab; however, it is unclear if the patient is receiving any benefit/improvement during the treatment timeframe. Patient was found today at his residence when a caregiver came to the house early. In the emergency department he was found to have a severe respiratory acidosis and was started on noninvasive mechanical ventilation. Brother presented to the bedside and they discussed risk benefits of intubation, admittedly the patient is at high risk for chronic respiratory vent dependent failure, the decision was made to proceed with noninvasive treatment at this time and see if there was clinical improvement. I was asked to evaluate the patient. After extensive discussion with the patient's brother it was felt that he would not want her heroic measures undertaken in event of cardiac arrest. He reports his overlying goals have been by enlarge part to remain independent and by enlarge part avoid invasive medical procedures. We decided to continue with noninvasive mechanical ventilation and reconvene in a couple of hours and also attempt to contact the patient's son for his input, family reports that the relationship between the patient and son could be construed as being estranged/limited. Allergies Allergy/AdvReac Type Severity Reaction Status Date / Time No Known Allergies Allergy Verified 10/17/23 08:44 Home Medications Medication Instructions Recorded Confirmed Type ascorbate calcium (vitamin C) 500 500 mg PO DAILY 05/17/23 10/17/23 History mg tablet cranberry 400 mg capsule 400 mg PO DAILY 05/17/23 10/17/23 History garlic 1,000 mg capsule 1,000 mg PO DAILY 05/17/23 10/17/23 History hydrochlorothiazide 25 mg tablet 25 mg PO QDAY 05/17/23 10/17/23 History lisinopril 10 mg tablet 10 mg PO DAILY 05/17/23 10/17/23 History metoprolol succinate 25 mg 25 mg PO DAILY 05/17/23 10/17/23 History tablet,extended release 24 hr saw palmetto 500 mg capsule 500 mg PO BID 05/17/23 10/17/23 History turmeric 100 mg-diomedes 150 1 cap PO UD 05/17/23 10/17/23 History mg-olive 50 mg-oreg 150 mg-capryl capsule budesonide 160 mcg-glycopyr 9 2 inh inhalation BID #10.7 grams 05/18/23 10/17/23 Rx mcg-formot 4.8 mcg/actuation HFA inhaler (Breztri Aerosphere) ipratropium 0.5 mg-albuterol 3 mg 3 ml inhalation Q8H PRN shortness 05/18/23 10/17/23 Rx (2.5 mg base)/3 mL nebulization of breath or wheezing #180 mL soln zolpidem 5 mg tablet 5 mg PO ONCE PRN sleep #2 tabs 08/18/23 10/17/23 Rx Auto Titrating CPAP #1 ea 08/31/23 10/12/23 Rx CPAP Supplies #1 ea 08/31/23 10/12/23 Rx metformin 500 mg tablet,extended 500 mg PO QAM 10/17/23 10/17/23 History release 24 hr rosuvastatin 20 mg tablet 20 mg PO QAM 10/17/23 10/17/23 History Patient History Medical History HTN (hypertension) Solitary fibrous neoplasm COPD with emphysema Social History Smoking Status: Former smoker Tobacco Type: Cigarettes Age Started Using Tobacco: 11; Age Quit Using Tobacco: 66; packs per day: 3; Cigarettes Per Day: 3 PPD; Smoking End Date: April 2022; Second Hand Exposure: Yes; Do You Dip or Chew Tobacco: No; Hx Alcohol Use: No Hx Substance Use: No Preferred Language: Gambian Communication Ability: Effective Office Assistance Required: No Beliefs That Will Affect Care: None Current Living Situation: Alone Feels Safe at Home: Yes Assistive Devices: Cane, CPAP, Glasses, Oxygen - Continuous and Walker Physical Exam Physical Exam: General: Frail in appearance Neuro somnolent: Glascow Coma Scale: Eyes: 2, Verbal 1, Motor 4, Total 7 Skin: Warm, dry, Head: Atraumatic Ears, nose, mouth and throat: BiPAP mask in place Cardiovascular: Normal peripheral perfusion Respiratory: no respiratory distress, scattered rhonchi Gastrointestinal: Non distended Musculoskeletal: 3+ pitting edema Results & Data Results & Data Vital Signs (Past 12 Hours) Vital Signs Pulse Resp BP Pulse Ox O2 Del Method O2 Flow Rate FiO2 10/17/23 09:06 50 L 10/17/23 08:22 104 H 22 97 80 10/17/23 08:03 95 Non-rebreather 15 10/17/23 08:03 108 H 25 H 141/74 H 95 Non-rebreather 15 10/17/23 08:03 117 H Coding Level of Care Code 72699 CRITICAL CARE 1ST 30-74M Additional Critical Care Time Additional 30min Critical Care Time: Yes - 27604 x 2 (60 addl min) Diagnoses Multifocal pneumonia J18.9 Thrombocytopenia D69.6 Anemia D64.9 Anemia type: unspecified type Respiratory acidosis E87.29 Cor pulmonale I27.81 Respiratory failure J96.01; J96.02 Chronicity: acute Respiratory failure complication: hypoxia and hypercapnia Acute respiratory failure with hypoxia J96.01 Ex-smoker Z87.891 Spindle cell carcinoma of thorax C76.1 Chronic respiratory failure with hypoxia and hypercapnia J96.11; J96.12 Additional Codes Critical Care Time - Additional 30min Critical Care Time: Yes - 76362 x 2 (60 addl min) ([id number]) (3) Anemia Anemia type: unspecified type Qualified Code(s): D64.9 - Anemia, unspecified (6) Respiratory failure Chronicity: acute Respiratory failure complication: hypoxia and hypercapnia Qualified Code(s): J96.01 - Acute respiratory failure with hypoxia; J96.02 - Acute respiratory failure with hypercapnia
--- NOTE | 2023-10-17 09:38 | CT Scan Report ---
CT thoracic spine wo con HISTORY: 67 years-old Male fall, pain acute mid back pain status post fall COMPARISON: CT lumbar spine of same day, PET CT 09/13/2022 TECHNIQUE: Multiple axial CT images of the thoracic spine were obtained without IV contrast. A dose l owering technique was used consistent with the principals of [facility]. FINDINGS: Mild chronic superior endplate T2 compression deformity. There is mostly mild multilevel intervertebr al disc space narrowing with moderate bridging osteophytosis and moderate facet arthrosis. No acute f racture, subluxation, endplate erosion or destructive bone lesion identified. No acute displaced rib fracture identified. Suboptimal dilation of the central canal and neural foramen by CT technique. No high-grade central canal or neural foraminal narrowing identified. Small pleural effusions. There is a large masslike focus involving the posterior and basal aspects of the right hemithorax measuring up to 16 cm which appears to have increased in size from 01/31/2023 ex am. Cardiomegaly. There are a few borderline enlarged nonspecific mediastinal and hilar lymph nodes. Intralobular septal thickening with intermixed groundglass and consolidative opacities within the nelson gs. IMPRESSION: 1. No acute fracture or subluxation identified involving the thoracic spine. 2. Cardiomegaly with interstitial pulmonary edema and nonspecific right greater than left consolidati ve opacities. 3. Layering pleural effusions. 4. Large mass of the lower right hemithorax redemonstrated which appears to have increased in size fr om 01/31/2023. ACT 112: Negative or not required by law. The above report was generated using voice recognition software. It may contain grammatical, syntax o r spelling errors. Electronically signed by: Manny Paredes M.D. 10/17/2023 9:36 AM
[2023-10-17 09:50] LABS: Appearance Urine Clear (Clear); Bacteria Urine Automated None Seen (None Seen); Bilirubin Urine Negative (Negative); Blood Urine Negative (Negative); Color Urine Yellow; Epithelial Cell Urine Auto 0-2 /hpf (0-2); Glucose Urine UA Negative (Negative); Ketones Urine Negative (Negative); Leukocyte Esterase Urine Negative (Negative); Nitrite Urine Negative (Negative); Protein Urine 3+ (Negative); Specific Gravity Urine 1.019 (1.000-1.030); Urobilinogen Urine Negative (Negative); WBC Urine Automated 0-5 /hpf (0-5)
[2023-10-17 10:22] LABS: Partial Thromboplastin Ratio 0.8; Partial Thromboplastin Time 21 Seconds (21-31); Prothrombin Time 10.8 Seconds (9.0-12.0)
[2023-10-17 10:34] LABS: iSTAT Arterial Blood Gas HCO3 44 meg/L (19-24); iSTAT Arterial Blood Gas pCO2 99 mmHg (35-46); iSTAT Arterial Blood Gas pH 7.25 (7.35-7.45); iSTAT Arterial Blood Gas pO2 52 mmHg (80-95); iSTAT Carbon Dioxide > 40 mmol/L (24-31); iSTAT Hematocrit 32 % (42-52); iSTAT Hemoglobin 10.9 g/dl (14.0-18.0); iSTAT Potassium 3.9 mmol/L (3.3-5.0); iSTAT Sodium 144 mmol/L (135-144)
[2023-10-17] MEDS ORDERED: VANCOMYCIN CONSULT ACTIVE PRN (10:35)
[2023-10-17 10:38] LABS: Adenovirus PCR Not Detected (NotDetected); Bordetella parapertussis PCR Not Detected (NotDetected); Bordetella pertussis PCR Not Detected (NotDetected); Chlamydia pneumoniae PCR Not Detected (NotDetected); Coronavirus 229E PCR Not Detected (NotDetected); Coronavirus CoV-2 (COVID19)PCR Not Detected (NotDetected); Coronavirus HKU1 PCR Not Detected (NotDetected); Coronavirus NL63 PCR Not Detected (NotDetected); Coronavirus OC43PCR Not Detected (NotDetected); Human Metapneumovirus PCR Not Detected (NotDetected); Influenza A PCR Not Detected (NotDetected); Influenza B PCR Not Detected (NotDetected); Mycoplasma pneumoniae PCR Not Detected (NotDetected); Parainfluenza Virus 1 PCR Not Detected (NotDetected); Parainfluenza Virus 2 PCR Not Detected (NotDetected); Parainfluenza Virus 3 PCR Not Detected (NotDetected); Parainfluenza Virus 4 PCR Not Detected (NotDetected); Respiratory Syncytial VirusPCR Not Detected (NotDetected); Rhinovirus/Enterovirus PCR Not Detected (NotDetected)
--- NOTE | 2023-10-17 10:50 | History & Physical Report ---
Date of Service October 17, 2023 Assessment & Plan (1) Goals of care, counseling/discussion: Plan: Goals of Care Planning: - Discussed goals of care. Patient has an oldest son (FLORENCIA) [phone] who has been called x2 and a voicemail. He does not have another son Dawit with who he is estranged who he has not spoken to in over 3 years and who did not take his name/has a different last name andno phone numbers are available for this son per his younger brother. In the event that his son FLORENCIA is not available, does not wish to be involved in decision-making, his next surrogate decision maker would be his siblings. His brother Tyrel is with him at the bedside, and his sister has been contacted and will attempt to come to the hospital to participate in decision-making. At time of admission his brother Tyrel is able to best advocate for what Dawit would or would not have wanted. He notes that Dawit was a cano, generally independent and while he was compliant with his medications had not wanted aggressive interventions and was not tolerant of CPAP. Dawit would not want intubation or CPR or any cardiopulmonary arrest. 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 He has been on chronic oxygen both during the day and at night, which also can worsen evening hypercapnia and patient had concurrent sleep apnea but did not tolerate CPAP. Good rate attempts have been made by phone to his oldest son FLORENCIA and sister, and attempts to obtain a phone number to his estranged son have failed as this son (Dawit) did no take Mr. Perdomo's name, has been estranged for >30 years and no phone number is available from family. on shared decision making with patient's brother who is his closest available surrogate decision maker in case that Dawit would want to be made DNR/DNI at this time, and would like to continue cu rrent medical treatments including BiPAP, antibiotics, and diuresis without further escalation of care. Patient is acutely bicytopenic. He has been crossmatched however family would like to defer blood transfusion at this time is nontender mention he would have wanted in his current situation. Continue serial labs including VBG and have a family meeting at 2:00 to reassess patient's progression. Patient also gives several hours for the family members notified to call back/arrive and to contribute to decision making (2) Chronic respiratory failure with hypoxia and hypercapnia: Plan: Acute on Chronic hypoxemic/hypercapneic respiratory failure and with thrombocytopenia No leukocytosis Hemoglobin 8.4, last 11.4 on 05/2023. Crossmatched, blood deferred pending additional goals of care discussion as above. Platelet count 29 [id number] AB.1 8114/45/43. Severe acute respiratory acidosis with underlying chronic metabolic alkalosis pCO2 114 on admission Troponin normal, creatinine is normal UA is noninfected appearing Bio fire pending CThead/C-spine/T-spine/L-spine: No acute fracture or subluxation involving the spine. No acute intracranial findings Cardiomegaly with interstitial pulmonary edema, left consolidative opacities, and layering pleural effusions is noted. Large mass of right hemithorax re- demonstrated increased from 01/2023 EKG on admission: Sinus tachycardia, no territorial ST segment changes or T wave inversions. Rate 107. QTc 448 Last echo 05/2023: Grade 1 diastolic dysfunction. Severely dilated RV. EF 65%. Suspect combined due to underlying hypercapnic/hypoxic respiratory failure, with superimposed fluid overload/cor pulmonale, and possibly with multifocal pneumonia superimposed. Agree with treating with broad-spectrum antibiotics, diuresis, and BiPAP (3) COPD with emphysema: Plan: COPD >100 pack-year tobacco history PFT 07/2023: Severe restrictive lung disease, no obstructive disease and insignificant bronchodilator response. Mild decrease in DLCO. FEV1/FVC ratio 71, FEV1 34% predicted, FVC 35% predicted Baseline on 2 L at rest, 3 L at night, 3 to 4 L oxygen with exertion History of severe nocturnal hypoxemia, and mild sleep apnea with poor tolerance to CPAP sleep study 08/2023 BiPAP as above, VBG trended. Patient is with a critical acute respiratory acidosis on admit (4) HTN (hypertension): Plan: HTN -Oral meds held (5) Diabetes mellitus: Plan: ICU hypoglycemia protocol Goal BSG [id number], critically ill (6) Acute on chronic heart failure with preserved ejection fraction: Plan: Patient with history of preserved ejection fraction with diastolic dysfunction She has signs of pulmonary edema, and total body fluid overload. Acute on chronic heart failure with preserved ejection fraction is present. he has severe RV dilation consistent with cor pulmonale likely due to his chronic restrictive lung disease Diuresis 40 mg IV twice daily continued on admission Troponin is normal, EKG without signs of territorial (7) Ex-smoker: (8) Restrictive lung disease: (9) Solitary fibrous neoplasm: (10) Hypersomnia: (11) Exertional shortness of breath: (12) Cor pulmonale: (13) Multifocal pneumonia: (14) Malignancy: History of Present Illness Primary Care Provider: Unique Moser MD, [facility] 67-year-old BIBA with past medical history of COPD who presented by ambulance with a fall this morning and was found hypoxic in the field patient was on nonrebreather prehospital and transition to BiPAP on arrival. History is not available from patient due to mental status. Per family patient has a history of oxygen dependence, over [id number] history of tobacco use, has lung cancer for which she is not a surgical candidate, and has sleep apnea intolerant of CPAP. Reports that he was initially talking this morning although was short of breath and was complaining of back pain. After a fall EMS was contacted however he was found to be hypoxic in the field and was transported to the ER on nonrebreather. Family notes that he is oxygen dependent but often does not wear this. Since arrival he had deterioration of his mental status and is obtunded at time of admitting hospitalist assessment Goals of Care Planning: - Discussed goals of care. Patient has an oldest son (FLORENCIA) [phone] who has been called x2 and a voicemail. He does not have another son Dawit with who he is estranged who he has not spoken to in over 3 years and who did not take his name/has a different last name andno phone numbers are available for this son per his younger brother. In the event that his son FLORENCIA is not available, does not wish to be involved in decision-making, his next surrogate decision maker would be his siblings. His brother Tyrel is with him at the bedside, and his sister has been contacted and will attempt to come to the hospital to participate in decision-making. At time of admission his brother Tyrel is able to best advocate for what Dawit would or would not have wanted. He notes that Dawit was a cano, generally independent and while he was compliant with his medications had not wanted aggressive interventions and was not tolerant of CPAP. Dawit would not want intubation or CPR or any cardiopulmonary arrest. 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 He has been on chronic oxygen both during the day and at night, which also can worsen evening hypercapnia and patient had concurrent sleep apnea but did not tolerate CPAP. Good rate attempts have been made by phone to his oldest son FLORENCIA and sister, and attempts to obtain a phone number to his estranged son have failed as this son (Dawit) did no take Mr. Perdomo's name, has been estranged for >30 years and no phone number is available from family. on shared decision making with patient's brother who is his closest available surrogate decision maker in case that Dawit would want to be made DNR/DNI at this time, and would like to continue current medical treatments including BiPAP, antibiotics, and diuresis without further escalation of care. Patient is acutely bicytopenic. He has been crossmatched however family would like to defer blood transfusion at this time is nontender mention he would have wanted in his current situation. Continue serial labs including VBG and have a family meeting at 2:00 to reassess patient's progression. THis will allow time to evaluate response to Abx adn BIPAP; and also gives several hours for the family members notified to call back/arrive and to contribute to decision making Medical History: Reviewed Medications: Reviewed Surgical History: Reviewed Family history: Reviewed Allergies: Reviewed Social History: Reviewed Code Status: DNR/DNI Allergies Allergy/AdvReac Type Severity Reaction Status Date / Time No Known Allergies Allergy Verified 10/17/23 08:44 Home Medications Medication Instructions Recorded Confirmed Type ascorbate calcium (vitamin C) 500 500 mg PO DAILY 05/17/23 10/17/23 History mg tablet cranberry 400 mg capsule 400 mg PO DAILY 05/17/23 10/17/23 History garlic 1,000 mg capsule 1,000 mg PO DAILY 05/17/23 10/17/23 History hydrochlorothiazide 25 mg tablet 25 mg PO QDAY 05/17/23 10/17/23 History lisinopril 10 mg tablet 10 mg PO DAILY 05/17/23 10/17/23 History metoprolol succinate 25 mg 25 mg PO DAILY 05/17/23 10/17/23 History tablet,extended release 24 hr saw palmetto 500 mg capsule 500 mg PO BID 05/17/23 10/17/23 History turmeric 100 mg-diomedes 150 1 cap PO UD 05/17/23 10/17/23 History mg-olive 50 mg-oreg 150 mg-capryl capsule budesonide 160 mcg-glycopyr 9 2 inh inhalation BID #10.7 grams 05/18/23 10/17/23 Rx mcg-formot 4.8 mcg/actuation HFA inhaler (Breztri Aerosphere) ipratropium 0.5 mg-albuterol 3 mg 3 ml inhalation Q8H PRN shortness 05/18/23 10/17/23 Rx (2.5 mg base)/3 mL nebulization of breath or wheezing #180 mL soln zolpidem 5 mg tablet 5 mg PO ONCE PRN sleep #2 tabs 08/18/23 10/17/23 Rx Auto Titrating CPAP #1 ea 08/31/23 10/12/23 Rx CPAP Supplies #1 ea 08/31/23 10/12/23 Rx metformin 500 mg tablet,extended 500 mg PO QAM 10/17/23 10/17/23 History release 24 hr rosuvastatin 20 mg tablet 20 mg PO QAM 10/17/23 10/17/23 History Past Med/Surg History Problem List (Updated 10/17/23 @ 16:06 by Zeke Arellano MD) Multifocal pneumonia Malignancy (Acute) Thrombocytopenia (Acute) Anemia (Acute) Respiratory acidosis (Acute) CHF (congestive heart failure) (Acute) Respiratory failure (Acute) Cor pulmonale Acute on chronic heart failure with preserved ejection fraction Acute respiratory failure with hypoxia Diabetes mellitus Goals of care, counseling/discussion Ex-smoker Restrictive lung disease Exertional shortness of breath Obesity Chronic respiratory failure with hypoxia and hypercapnia Hypersomnia Medical History HTN (hypertension) Solitary fibrous neoplasm COPD with emphysema Social History Smoking Status: Unknown if ever smoked Tobacco Type: Cigarettes Age Started Using Tobacco: 11; Age Quit Using Tobacco: 66; packs per day: 3; Second Hand Exposure: Yes; Do You Dip or Chew Tobacco: No; Hx Alcohol Use: No Preferred Language: Welsh Feels Safe at Home: Yes Physical Exam Physical Exam: General: Obtunded. BiPAP in place. Critically ill appearing HEENT: Atraumatic, normocephalic. Pupils equal and reactive to light Pulm: Diffusely coarse Cardiac: RRR, +soft sm Abdominal: Nontender, nondistended, soft. BS present. Ext: +pitting edema LE bilaterally. Strength and sensation testing unable to be performed due to mental status Results & Data Results & Data Vital Signs (Past 12 Hours) Vital Signs Pulse Resp BP Pulse Ox O2 Del Method O2 Flow Rate FiO2 10/17/23 10:01 91 H 22 119/69 89 L 50 10/17/23 09:53 91 H 22 93 BiPAP 50 10/17/23 09:38 96 H 22 142/74 H 95 BiPAP 50 10/17/23 09:30 96 H 20 142/74 H 97 BiPAP 50 10/17/23 09:06 50 L 10/17/23 09:01 96 H 22 127/71 90 BiPAP 50 10/17/23 08:42 102 H 24 89 L BiPAP 50 10/17/23 08:22 104 H 22 97 80 10/17/23 08:03 95 Non-rebreather 15 10/17/23 08:03 108 H 25 H 141/74 H 95 Non-rebreather 15 10/17/23 08:03 117 H 10/17/23 08:00 108 H 24 141/47 H 95 BiPAP 50 PG Care Time/CCT Total # of Minutes Spent Total Time Spent with Patient: Total time spent is greater than 50% in coordination of care (as documented) at patient's floor/unit and/or counseling patient: Coding Level of Care Code 06072 INT INP/OBS CARE 3/75MIN Diagnoses Goals of care, counseling/discussion Z71.89 Chronic respiratory failure with hypoxia and hypercapnia J96.11; J96.12 COPD with emphysema J43.9 HTN (hypertension) I10 Diabetes mellitus E11.9 Acute on chronic heart failure with preserved ejection fraction I50.33 Ex-smoker Z87.891 Restrictive lung disease J98.4 Solitary fibrous neoplasm D49.2 Hypersomnia G47.10 Exertional shortness of breath R06.02 Cor pulmonale I27.81 Multifocal pneumonia J18.9 Malignancy C80.1
[2023-10-17] MEDS: metroNIDAZOLE 500 MG/100 ML BAG IV ONE (11:02)
[2023-10-17] MEDS: metroNIDAZOLE 500 MG/100 ML BAG IV STA (11:02)
[2023-10-17] MEDS: VANCOMYCIN HCL 2,750 MG in SODIUM CHLORIDE 0.9% 500 ML IV ONE (11:12)
[2023-10-17 11:32] LABS: Base Excess VBG 20.7 mEq/L; HCO3 VBG 51 mmol/L; Oxygen Saturation VBG < 60.0 %; PCO2 VBG 101 mmHg (38-50); PO2 VBG < 20 mmHg; pH VBG 7.31 (7.36-7.41)
[2023-10-17 11:38] LABS: Hematocrit (blood only) 34.6 % (42.0-52.0); Hemoglobin 9.8 g/dl (14.0-18.0)
[2023-10-17] MEDS ORDERED: ICU Protocol for HYPERglycemia SCH (13:11)
[2023-10-17] MEDS: ALBUT/IPRATROP 3MG/0.5MG NEB 3 ML VIAL NEB STA (13:12)
--- NOTE | 2023-10-17 14:27 | Pharmacy Report ---
Pharmacy PK ABX Note - Date of Service October 17, 2023 - Assessment and Plan Assessment 67 year old M receiving vancomycin, cefepime, and flagyl for pulmonary coverage. Blood cultures pending, MRSA nasal pending. Renal function stable. Day # 1 of antimicrobial therapy. Plan Vancomycin * Loading dose: 2750 mg IV x 1 * Maintenance dose: 1250 mg IV every 12 hours * Regimen is predicted to achieve target AUC/YURIDIA of 400-600 mg/L.hr * Will obtain a level around steady state, ~ 48h of therapy if vancomycin continued Pharmacy will continue to follow and will adjust dose/frequency as necessary. Thank you. Pharmacy has transitioned to AUC monitoring for vancomycin. AUC/YURIDIA is the preferred PK/PD target and is associated with decreased risk of nephrotoxicity compared to traditional trough targets.
[2023-10-17 14:31] LABS: iSTAT Allen Test Pass; iSTAT Art Bld Gas pCO2 Correct 72 mmHg (35-46); iSTAT Art Bld Gas pH Corrected 7.379 (7.35-7.45); iSTAT Arterial Blood Gas HCO3 43 meg/L (19-24); iSTAT Arterial Blood Gas pCO2 72 mmHg (35-46); iSTAT Arterial Blood Gas pH 7.38 (7.35-7.45); iSTAT Arterial Blood Gas pO2 54 mmHg (80-95); iSTAT Arterial Blood Gas pO2 C 54; iSTAT Carbon Dioxide > 40 mmol/L (24-31); iSTAT FiO2 50 %; iSTAT Hematocrit 33 % (42-52); iSTAT Hemoglobin 11.2 g/dl (14.0-18.0); iSTAT Site L Radial; iSTAT Sodium 142 mmol/L (135-144)
[2023-10-17 16:38] LABS: iSTAT Allen Test Pass; iSTAT Art Bld Gas pCO2 Correct 75 mmHg (35-46); iSTAT Art Bld Gas pH Corrected 7.373 (7.35-7.45); iSTAT Arterial Blood Gas HCO3 44 meg/L (19-24); iSTAT Arterial Blood Gas pCO2 75 mmHg (35-46); iSTAT Arterial Blood Gas pH 7.37 (7.35-7.45); iSTAT Arterial Blood Gas pO2 60 mmHg (80-95); iSTAT Arterial Blood Gas pO2 C 60; iSTAT Carbon Dioxide > 40 mmol/L (24-31); iSTAT Hematocrit 31 % (42-52); iSTAT Hemoglobin 10.5 g/dl (14.0-18.0); iSTAT Potassium 4.2 mmol/L (3.3-5.0); iSTAT Site R Radial; iSTAT Sodium 142 mmol/L (135-144)
[2023-10-17] MEDS ORDERED: methylPREDNISolone 125 MG/2 ML VIAL IV SCH (17:30)
[2023-10-17] MEDS: CEFEPIME 2,000 MG in SYRINGE 0 ML IV SCH (17:51)
[2023-10-17] MEDS: FUROSEMIDE 40 MG/4 ML VIAL IV SCH (17:52)
[2023-10-17] MEDS: ICU Protocol for HYPERglycemia SCH (18:18)
[2023-10-17] MEDS: methylPREDNISolone 40 MG in SYRINGE 0 ML IV SCH (19:49)
[2023-10-17] MEDS: metroNIDAZOLE 500 MG/100 ML BAG IV SCH (19:49)
[2023-10-17 20:56] LABS: Hematocrit (blood only) 33.3 % (42.0-52.0); Hemoglobin 9.8 g/dl (14.0-18.0)
[2023-10-17 20:57] LABS: Base Excess VBG 15.5 mEq/L; HCO3 VBG 45 mmol/L; Oxygen Saturation VBG 76.3 %; PCO2 VBG 87 mmHg (38-50); PO2 VBG 42 mmHg; pH VBG 7.32 (7.36-7.41)
--- NOTE | 2023-10-17 23:25 | Communication Note ---
Date of Service: October 17, 2023 Patient hypoxic into the 70s even with his BiPAP on. He is also confused likely secondary to his hypoxia. Work of breathing is increased with audible wheezing. Review of records from in regards to goals of care- patient would not want escalation of care and is DNR/DNI and with his underlying lung disease and spindle cell carcinoma, liberating him from a ventilatory would be unlikely. - At this time will provide nebulizers and inhaled corticosteroid for his underlying COPD - Will attempt to maintain saturations with HFNC and BiPAP as tolerated - Will call and update patient's family, the son was present earlier in the shift per nursing- and deferred all decisions to Tyrel the brother. - Attempted to call Tyrel, no answer- I was able to talk with his sister Miesha and she was present for conversations earlier and also agreed that he would not want intubated and would want to be made comfortable if he were to worsen. Miesha was unable to get in touch with her brother Tyrel - however she re-iterates discussion from earlier today with all siblings, that Dawit would just want to be made comfortable if we are unable to reverse his current status and he would not want to be kept alive on a machine, even for short term. If patient status changes and unable to stablaize- will transition to comfort measures. - Miesha is on her way in although she is 2 hours away and she will continue to try to get in touch with her brother. Tucker SNYDER (ACNP-) Additional 40min cc time Coding Level of Care Code None Time Spent (min) 40 Comment additional 40 min critical care time spent
[2023-10-17] MEDS: BUDESONIDE 0.5 MG/2 ML VIAL (PULMICORT) NEB ONE (23:29)
[2023-10-18 01:02] LABS: Base Excess VBG 16.3 mEq/L; HCO3 VBG 48 mmol/L; Oxygen Saturation VBG 65.2 %; PCO2 VBG 97 mmHg (38-50); PO2 VBG 35 mmHg
[2023-10-18 01:18] LABS: Hematocrit (blood only) 34.9 % (42.0-52.0)
[2023-10-18] MEDS: VANCOMYCIN HCL 1,250 MG in SODIUM CHLORIDE 0.9% 250 ML IV SCH (03:24)
[2023-10-18 04:10] LABS: Base Excess VBG 15.5 mEq/L; HCO3 VBG 47 mmol/L; Oxygen Saturation VBG 81.2 %; PCO2 VBG 95 mmHg (38-50); PO2 VBG 49 mmHg
[2023-10-18 04:33] LABS: Basophils # (auto) 0.01 K/uL (0.00-0.20); Basophils % (auto) 0.1 %; Hematocrit (blood only) 34.7 % (42.0-52.0); Immature Granulocytes # (auto) 0.09 K/uL (0.01-0.20); Immature Granulocytes % (auto) 0.8 %; Lymphocytes # (auto) 0.79 K/uL (1.20-3.40); Lymphocytes % (auto) 6.9 %; Mean Corpuscular Hemoglobin 26.8 pg (25.0-34.0); Mean Corpuscular Hgb Conc 28.8 g/dL (32.0-36.0); Mean Platelet Volume 11.7 fL (9.4-12.4); Monocytes % (auto) 3.5 %; Neutrophils # (auto) 10.11 K/uL (1.40-6.50); Neutrophils % (auto) 88.7 %; Platelet Count 172 K/uL (130-400); RDW Coefficient of Variation 14.6 % (11.5-14.5); RDW Standard Deviation 49.9 fL (36.4-46.3); Red Blood Count 3.73 M/uL (4.70-6.10)
[2023-10-18 04:38] LABS: Albumin Globulin Ratio 1.1 (0.9-2); Albumin Level 3.7 gm/dl (3.4-5.0); BUN Creatinine Ratio 26.3 (10-20); Bilirubin,Total 0.3 mg/dl (0.2-1.0); Calcium 9.2 mg/dl (8.6-10.3); Creatinine Clr Calc Pharmacy 68.4 ml/min; Est GFR (African American) 63.2 ml/min; Est GFR (Non-African American) 54.5 ml/min; Globulin 3.3 gm/dl (2.5-4.0); Potassium 4.2 mmol/L (3.5-5.1)
[2023-10-18] MEDS: BUDESONIDE 0.5 MG/2 ML VIAL (PULMICORT) NEB SCH (07:12)
[2023-10-18] MEDS: FORMOTEROL 20 MCG/2 ML VIAL NEB SCH (07:12)
[2023-10-18 09:43] LABS: iSTAT Allen Test Pass; iSTAT Art Bld Gas pCO2 Correct 64 mmHg (35-46); iSTAT Art Bld Gas pH Corrected 7.415 (7.35-7.45); iSTAT Arterial Blood Gas HCO3 41 meg/L (19-24); iSTAT Arterial Blood Gas pCO2 63 mmHg (35-46); iSTAT Arterial Blood Gas pH 7.42 (7.35-7.45); iSTAT Arterial Blood Gas pO2 64 mmHg (80-95); iSTAT Arterial Blood Gas pO2 C 65; iSTAT Carbon Dioxide > 40 mmol/L (24-31); iSTAT FiO2 60 %; iSTAT Hematocrit 28 % (42-52); iSTAT Hemoglobin 9.5 g/dl (14.0-18.0); iSTAT Potassium 3.9 mmol/L (3.3-5.0); iSTAT Site R Radial; iSTAT Sodium 141 mmol/L (135-144)
[2023-10-18] MEDS: PLASMA-LYTE A 1,000 ML IV ONE (10:52)
[2023-10-18] MEDS: levoFLOXacin/D5W 750 MG/150 ML BAG IV ONE (10:52)
--- NOTE | 2023-10-18 12:31 | Hospitalist Progress Note ---
Date of Service October 18, 2023 Assessment & Plan (1) Chronic respiratory failure with hypoxia and hypercapnia: Plan: Acute on Chronic hypoxemic/hypercapneic respiratory failure. He is DNR/DNI status. He is intolerant of CPAP. Apparent edema seen on admission chest x- ray. He has received parenteral Lasix on admission. At baseline he requires 2 L of oxygen at rest and 3 to 4 L of oxygen with exertion (2) COPD with emphysema: Plan: >100 pack-year tobacco history. PFT 07/2023: Severe restrictive lung disease, no obstructive disease and insignificant bronchodilator response. Mild decrease in DLCO. FEV1/FVC ratio 71, FEV1 34% predicted, FVC 35% predicted (3) HTN (hypertension): Plan: Stable. Continue current medical management (4) Diabetes mellitus: Plan: Sliding scale coverage. ADA diet when able to take p.o. (5) Acute on chronic heart failure with preserved ejection fraction: Plan: Lasix diuresis ordered on admission. Monitor intake and output. Serial chest x-ray. Recent cardiac echo completed in May 2023 reveals normal ejection fraction with mild LVH and evidence of chronic cor pulmonale. 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 No intervention at this time (7) Hypersomnia: Plan: Apparently due to chronically elevated CO2 levels causing CO2 narcosis (8) Cor pulmonale: Plan: Chronic cor pulmonale evident on most recent cardiac echo (9) Multifocal pneumonia: Plan: Appears to be mostly right-sided on admission chest x-ray. Will obtain sputum culture if sputum is produced. He is now on oral Levaquin Plan To be determined Admission and Anticipated Discharge Date Admission Date: October 17, 2023 Subjective Alert and oriented. No apparent distress. Multiple family members are present at the bedside. Orders were reviewed. IV antibiotics have been switched to oral Levaquin and he remains on intravenous Solu-Medrol. Serial chest x-rays and serial labs ordered. Most recent cardiac echo completed May 2023 reveals normal ejection fraction with evidence of chronic cor pulmonale and mild left ventricular hypertrophy. He is a DNR/DNI CODE STATUS Review of Systems 2 Review of Systems: Constitutional-no fever or chills ENT-no blurred vision, no double vision, no epistaxis, no sore throat Respiratory-nonproductive cough. Shortness of breath at rest and with minimal exertion. He denies hemoptysis Cardiac-no palpitations, no chest pain, no syncope GI-no nausea, vomiting, diarrhea, melena, hematochezia -no urinary retention, no urinary incontinence, no dysuria, no hematuria Musculoskeletal-no joint pain, no muscle tenderness Skin-brawny induration noted bilateral lower extremities below the knees Neuro-no isolated weakness, no paresthesia Psych-no depression, no anxiety Physical Exam 2 Physical Exam: General-alert and oriented x3, no fever, no chills HEENT-head atraumatic and normocephalic, pupils equal and reactive to light, extraocular muscles intact Neck-no lymphadenopathy or thyromegaly, trachea midline Chest-markedly diminished breath sounds bilaterally. Coarse rhonchi throughout the right hemithorax. Bilateral and expiratory wheezesi Cardiac-regular rate and rhythm, normal S1 and S2 Abdomen-normal bowel sounds, no hepatosplenomegaly Extremities-brawny induration and mild edema noted bilateral lower extremities below the knees Neuro-cranial nerves II through XII intact, motor and sensory function within normal limits, strength symmetrical, no focal deficits Psych-normal affect, normal mood Results & Data Results & Data Vital Signs (Past 12 Hours) Vital Signs Temp Pulse Pulse Resp BP Pulse Ox O2 Del Method 10/18/23 11:04 154/94 H 10/18/23 11:04 96 H 15 92 10/18/23 11:00 94 H 18 92 10/18/23 10:00 93 H 25 H 91 10/18/23 09:30 BiPAP 10/18/23 09:00 81 23 91 10/18/23 08:00 96 H 29 H 93 10/18/23 07:15 93 H 23 93 10/18/23 07:15 93 H 23 93 BiPAP 10/18/23 07:00 122/57 L 10/18/23 07:00 82 14 92 10/18/23 06:00 81 15 120/62 92 BiPAP 10/18/23 05:00 98 H 18 143/80 H 94 BiPAP 10/18/23 04:54 94 H 20 94 10/18/23 04:23 87 19 91 Nasal Cannula 10/18/23 04:00 37 C 102 H 24 161/84 H 90 High Flow Nasal Cannula 10/18/23 03:00 104 H 22 160/80 H 88 L High Flow Nasal Cannula 10/18/23 02:00 106 H 20 167/83 H 88 L High Flow Nasal Cannula 10/18/23 01:00 104 H 19 158/73 H 87 L High Flow Nasal Cannula O2 Flow Rate FiO2 10/18/23 11:04 10/18/23 11:04 10/18/23 11:00 10/18/23 10:00 10/18/23 09:30 10/18/23 09:00 10/18/23 08:00 10/18/23 07:15 70 10/18/23 07:15 70 10/18/23 07:00 10/18/23 07:00 10/18/23 06:00 70 10/18/23 05:00 70 10/18/23 04:54 70 10/18/23 04:23 12 10/18/23 04:00 10 10/18/23 03:00 10 10/18/23 02:00 10 10/18/23 01:00 12 Laboratory Results 10/18/23 04:00 10/18/23 04:00 PG Care Time/CCT Total # of Minutes Spent Total Time Spent with Patient: Total time spent is greater than 50% in coordination of care (as documented) at patient's floor/unit and/or counseling patient: Coding Level of Care Code 26595 SUB INP/OBS CARE 3/50MIN Diagnoses Chronic respiratory failure with hypoxia and hypercapnia J96.11; J96.12 COPD with emphysema J43.9 HTN (hypertension) I10 Diabetes mellitus E11.9 Acute on chronic heart failure with preserved ejection fraction I50.33 Solitary fibrous neoplasm D49.2 Hypersomnia G47.10 Cor pulmonale I27.81 Multifocal pneumonia J18.9
--- OUTSIDE RECORDS SUMMARY | 2023-10-18 12:33 | External Medical Summary | Summary of Care ---
Author Name Unknown Organization [facility] Address [address] [place] [address] Phone [phone] Care Team Providers Care Semiconductor Wafers Marker Name Role Phone Maria Farley Primary Care Provider Encounter Details Date Type Department Care Team (Late st Contact Info) Description 10/10/2023 External Data Patient Risk Medial Allergies Active Allergy Reactions Criticality Noted Date Comments Metformin Other (Please comment) 02/23/2023 GI intolerance documented as of this encounter (statuses as of 10/10/2023) Medications Medication Sig Dispensed Refills Start Date End Date Status Silver sulfADIAZINE 1 % External Cream (Silvadene) Apply topically to affected area daily. 400 g 1 08/02/2022 Active Compressor NebulizerIndications: Mass of lower lobe of right lung,Shortness of breath,Hypoxemia Inhale via nebulizer. Use as directed. 1 Each 1 08/12/2022 Active Albuterol Sulfate (2.5 MG/3ML) 0.083% Inhalation Nebulization Solution (Proventil)Indication s:Mass of lower lobe of right lung,Shortness of breath,Hypoxemia Inhale 1 Vial via nebulizer every 4 hours as needed for Wheezing or Shortness of Breath. 300 mL 1 08/12/2022 Active Dexcom G7 SensorIndications:Typ e 2 diabetes mellitus with hemoglobin A1c goal of less than 7.0% (HCC) Use as directed E119 1 Each 5 08/19/2022 Active Dexcom G7 Soda Dialyzer DeviceIndications:Typ e 2 diabetes mellitus with hemoglobin A1c goal of less than 7.0% (HCC) Use as directed E119 1 Each 0 08/19/2022 Active Magnetic SoftwareTouch Verio In Vitro Strip (Glucose Blood)Indications:Typ e 2 diabetes mellitus with hemoglobin A1c goal of less than 7.0% (HCC) Use up to 4 times daily and as needed to monitor glucose 200 Strip 2 09/01/2022 Active OneTouch Verio w/Device KitIndications:Type 2 diabetes mellitus with hemoglobin A1c goal of less than 7.0% (HCC) Use up to 4 times a day E11.9 1 Kit 0 09/01/2022 Active Magnetic SoftwareTouch UltraSoft LancetsIndications:Ty pe 2 diabetes mellitus with hemoglobin A1c goal of less than 7.0% (HCC) Use as directed 4 times a day as needed (glucose monitoring). Use up to four times a day as directed 300 Each 3 09/01/2022 Active Albuterol Sulfate HFA 108 (90 Base) MCG/ACT Inhalation Aerosol SolutionIndications:M ass of lower lobe of right lung Inhale 2 Puffs by mouth every 4 hours as needed for Wheezing. 6.7 g 3 10/07/2022 Active Saw [place] 1000 MG Oral Capsule Take by mouth daily. 0 Active Vitamin C 500 MG Oral Capsule Take by mouth daily. 0 Active Garlic 100 MG Oral Tablet Take 1 Tablet by mouth in the morning. 0 Active Turmeric 500 MG Oral Capsule Take 1 Capsule by mouth in the morning. 0 Active Cranberry 1000 MG Oral Capsule Take 1,000 mg by mouth in the morning. 0 Active Budesonide-Formoterol Fumarate 80-4.5 MCG/ACT Inhalation Aerosol (Symbicort) Inhale 2 Puffs by mouth in the morning and 2 Puffs before bedtime. 10.2 g 12 11/25/2022 Active Fluticasone-Salmetero l 115-21 MCG/ACT Inhalation Aerosol (Advair HFA) Inhale 2 Puffs by mouth in the morning and 2 Puffs before bedtime. 12 g 12 01/05/2023 Active hydroCHLOROthiazide 25 MG Oral Tablet (Hydrodiuril) Take 1 Tablet by mouth in the morning. 90 Tablet 3 01/11/2023 Active Metoprolol Succinate ER 25 MG Oral Tablet Extended Release 24 Hour (toPROL XL) Take 1 Tablet by mouth in the morning. 90 Tablet 3 01/11/2023 Active Semaglutide 7 MG Oral Tablet (Rybelsus)Indications :Type 2 diabetes mellitus with hemoglobin A1c goal of less than 7.0% (HCC),Class 3 severe obesity with serious comorbidity and body mass index (BMI) of 40.0 to 44.9 in adult, unspecified obesity type (HCC) Take 7 mg by mouth daily first thing in the morning. Do not start before March 25, 2023. 30 Tablet 0 03/25/2023 Active Semaglutide 14 MG Oral Tablet (Rybelsus)Indications :Type 2 diabetes mellitus with hemoglobin A1c goal of less than 7.0% (HCC),Class 3 severe obesity with serious comorbidity and body mass index (BMI) of 40.0 to 44.9 in adult, unspecified obesity type (HCC) Take 14 mg by mouth daily first thing in the morning. Do not start before April 25, 2023. 90 Tablet 2 04/25/2023 Active Lisinopril 10 MG Oral Tablet (Prinivil)Indications :Essential hypertension with goal blood pressure less than 130/80 TAKE 1 TABLET BY MOUTH EVERY DAY IN THE MORNING 90 Tablet 2 03/30/2023 Active COVID-19 Test In Vitro Kit Use as directed 1 Kit 3 03/30/2023 Active metFORMIN HCl ER (MOD) 500 MG Oral Tablet Extended Release 24 Hour Take 1 Tablet by mouth in the morning and 1 Tablet at noon and 1 Tablet in the evening. Take with meals. 0 Active Hospital, Clinic, or Other Facility Administered Medication Ordered Dose Route Frequency Start Date End Date Status Albuterol Sulfate (Proventil) (2.5 MG/3ML) 0.083% inhalation solution 2.5 mgIndications:History of tobacco abuse,Mass of lower lobe of right lung 2.5 mg NEBULIZER PRN 11/25/2022 11/25/2023 Active documented as of this encounter (statuses as of 10/10/2023) Active Problems Problem Noted Date Diagnosed Date Class 3 severe obesity with serious comorbidity and body mass index (BMI) of 40.0 to 44.9 in adult 02/23/2023 Medication nonadherence due to intolerance 02/23 Mass of lower lobe of right lung 08/02/2022 Liver lesion 08/02/2022 ASCVD (arteriosclerotic cardiovascular disease) 08/02/2022 Dependence on supplemental oxygen 08/02/2022 Hypoxemia 07/29/2022 Shortness of breath 07/29/2022 History of tobacco abuse 07/29/2022 Suspected sleep apnea 07/29/2022 Essential hypertension with goal blood pressure less than 130/80 07/29/2022 Peripheral edema 07/29/2022 documented as of this encounter (statuses as of 10/10/2023) Resolved Problems Problem Noted Date Diagnosed Date Resolved Date Body mass index (BMI) of 40. 0 to 44.9 in adult 01/16/2023 03/16/2023 Overview: Per Obesity protocol Class 3 severe obesity with serious comorbidity in adult 07/29/2022 01/19/2023 Overview: Per Obesity protocol documented as of this encounter (statuses as of 10/10/2023) Immunizations No known immunizationsdocumented as of this encounter Social History Tobacco Use Types Packs/Day Years Used Date Smoking Tobacco: Former Cigarettes 3 55.8 1 967 - 04/2022 Smokeless Tobacco: Never Alcohol Use Standard Drinks/Week Comments Not Currently 0 (1 standard drink = 0.6 oz pur e alcohol) PHQ-2 Answer Date Recorded PHQ Adult Total Score 9 07/29/2022 Hunger Vital Sign Answer Date Recorded Within the past 12 months, y ou worried that your food would run out before you got the money to buy more. Never true 07/29/19 23 Within the past 12 months, t he food you bought just didn't last and you didn't have money to get more. Never true 07/29/2022 Sex and Gender Information Value Date Recorded Sex Assigned at Not on file Gender Identity Not on file Sexual Orientation Not on file Job Start Date Occupation Industry Not on file Not on file Not on file documented as of this encounter Plan of Treatment Health Maintenance Due Date Last Done Comments Pneumococcal Vaccine: 65+ Years (1 of 2 - PCV) 1960 Albumin/Creatinine Ratio 1972 Hepatitis C Screening 1972 DTaP,Tdap,and Td Vaccines (1 - Tdap) 1973 Cologuard 12/19/1999 Colonoscopy 12/19/1999 Colorectal Cancer Screening 12/19/1999 Fecal Occult Blood Test 12/19/1999 Sigmoidoscopy 12/19/1999 Zoster Vaccines (1 of 2) 2004 AAA Screening 12/19/2019 COVID-19 Vaccine (1 - 2023- season) 2023 Depression Screening 07/29/2023 07/29/2022 GFR 10/26/2023 10/25/2022, 08/03, 07/29/2022 Influenza Vaccine (FLU shot) (Season Ended) 2024 Diabetes Screening 10/25/2025 10/25/2022, 0 09/13/2022, 08/15/2022, Additional history exists Lung Cancer Screening Completed 09/13/2022 GARDASIL-HPV IMMUNIZATION SERIES Aged Out No longer eligible based on patient's age to complete this topic Hepatitis B Aged Out No longer eligi ble based on patient's age to complete this topic MENINGOCOCCAL (MENACTRA/MENVEO) Aged Out No longer eligible based on patient's age to complete this topic documented as of this encounter Medical Devices Not on filedocumented as of this encounter Care Teams Semiconductor Wafers Marker Relationship Specialty Start Date End Date Maria Farley CRNP [address] [place] [phone] PCP - General Nurse Practitioner 07/29/22 documented as of this encounter
--- OUTSIDE RECORDS SUMMARY | 2023-10-18 12:33 | External Medical Summary | Summary of Care ---
Author Name Unknown Organization [facility] Address [address] [place] [address] Phone [phone] Care Team Providers Care Principal Examiner Name Role Phone Unavailable Primary Care Provider Unavailabl e Reason for Visit * Reason Onset Date Comments Information 10/10/2023 AAA screening Encounter Details Date Type Department Care Team (Late st Contact Info) Description 10/10/2023 Telephone [facility], [place] [address] [place] [address] Maria Farley CRNP [address] [place] [address] Information (AAA screening ) Allergies Active Allergy Reactions Criticality Noted Date Comments Metformin Other (Please comment) 02/23/2023 GI intolerance documented as of this encounter (statuses as of 10/13/2023) Medications Medication Sig Dispensed Refills Start Date [...] 1 Each 5 08/19/2022 Active Dexcom G7 Sanitation Manager DeviceIndications:Typ e 2 diabetes mellitus with hemoglobin A1c goal of less than 7.0% (HCC) Use as directed E119 1 Each 0 08/19/2022 Active OneTouch Verio In Vitro Strip (Glucose Blood)Indications:Typ e [...] day E11.9 1 Kit 0 09/01/2022 Active OneTouch UltraSoft LancetsIndications:Ty pe 2 diabetes mellitus with [...] Wheezing. 6.7 g 3 10/07/2022 Active Saw [place] 1000 MG Oral Capsule Take by mouth [...] as of this encounter (statuses as of 10/13/2023) Active Problems Problem Noted Date Diagnosed Date [...] as of this encounter (statuses as of 10/13/2023) Resolved Problems Problem Noted Date Diagnosed Date Resolved Date Body mass index (BMI) of 40. 0 to 44.9 in adult 01/16/2023 03/16/2023 Overview: Per Obesity protocol Class 3 severe obesity with serious comorbidity in adult 07/29/2022 01/19/2023 Overview: Per Obesity protocol documented as of this encounter (statuses as of 10/13/2023) Immunizations No known immunizationsdocumented as of this [...] on file documented as of this encounter Miscellaneous Notes * Telephone Encounter - Sarai Watkins LPN - 10/13/2023 10:17 AM EDT Through advanced analysis/trending of this patient's history, they have been identified to have a positive AAA flag and are at a higher risk for Abdominal aortic aneurysm. This advanced analysis estimates the patient's risk for AAA. It only indicates that the patient's chances to have this condition are higher compared to most people. It does not indicate that the patient has this condition, but it is highly recommended the patient have a AAA screening for further evaluation. I have contacted the patient regarding scheduling a AAA screening. Outcomes: Outreach not indicated SNF/Hospice/other No longer [facility] PCP. Chart updated. * Telephone Encounter - Sarai Watkins LPN - 10/11/2023 2:14 PM EDT I am calling to discuss some recommended testing. Our records indicate that you are due for a screening ultrasound of your aorta (this test checks for an enlargement of your aorta at the level of your abdomen). Have you had discussions with your provider about this?we've recently started evaluating your electronic health record to provide better screening and care for people at risk for disease of the aorta (the main artery that carries blood from your heart to the rest of your body). Based on your laboratory results and other clinical conditions, you may be at high risk for an abdominal aortic aneurysm (AAA, an enlargement of your lower aorta). This evaluation doesn't mean you have an AAA. It just means you should get screened at your earliest convenience by having an ultrasound. The screening results will tell your doctor if there's anything they need to examine more closely. Through advanced analysis/trending of this patient's history, they have been identified to have a positive AAA flag and are at a higher risk for Abdominal aortic aneurysm. This advanced analysis estimates the patient's risk for AAA. It only indicates that the patient's chances to have this condition are higher compared to most people. It does not indicate that the patient has this condition, but it is highly recommended the patient have a AAA screening for further evaluation. I have contacted the patient regarding scheduling a AAA screening. Outcomes: Left message * Telephone Encounter - Sarai Watkins LPN - 10/10/2023 1:38 PM EDT Through advanced analysis/trending of this patient's history, they have been identified to have a positive AAA flag and are at a higher risk for Abdominal aortic aneurysm. Pt will be contacted by a [facility] nurse to discuss AAA screening. documented in this encounter Plan of Treatment Health Maintenance [...] AAA Screening 12/19/2019 COVID-19 Vaccine (1 - 2022- season) 2023 Depression Screening 07/29/2023 07/29/2022 GFR 10/26/2023 10/25/2022, 0308/2022, 07/29/2022 Influenza Vaccine (FLU shot) (Season Ended) [...]
--- OUTSIDE RECORDS SUMMARY | 2023-10-18 12:33 | External Medical Summary | Continuity of Care Document ---
Author Name Unknown Organization [facility] [id number] [address] [place] [id number] Care Team Providers Care Talent Management Manager Name Role Phone Demetriorquidea Harsha Primary Care Physician [phone] Encounter [facility] [id number] Date(s): 10/06/23 - 10/06/23 [facility] [address] [facility] [address] [facility] [address] [address] [phone] Encounter Diagnosis Chronic obstructive pulmonary disease(Discharge Diagnosis) - 10/06/23 Diabetes(Discharge Diagnosis) - 10/06/23 HTN (hypertension)(Discharge Diagnosis) - 10/06/23 Lower extremity edema(Discharge Diagnosis) - 10/06/23 Lung mass(Discharge Diagnosis) - 10/06/23 HLD (hyperlipidemia)(Discharge Diagnosis) - 10/06/23 Discharge Disposition: Home or Self Care Attending Physician: MD Harris, [place] Allergies, Adverse Reactions, Alerts No Known Medication Allergies Substance Reaction Severity Status Hay Itchy eyes and sneezing Acti ve Allergy Not found in Search Poison MAGUE Active Medications Cranberry Start: 01/31/23 14:49:00 EDT, PO, Daily Start Date: 01/31/23 Status: Ordered Garlic Start: 01/31/23 14:48:00 EDT, PO, Daily Start Date: 01/31/23 Status: Ordered hydroCHLOROthiazide 25 mg oral tablet Start: 11/01/22 13:01:00 EDT, 1 tab, PO, Daily, 90 each, TAKE 1 TABLET BY MOUTH EVERY DAY Start Date: 11/01/22 Status: Ordered Lasix 20 mg oral tablet Start: 07/06/23 16:51:00 EST, 1 tab, PO, Daily, Disp# 7 tab, Refills: 1, Pharmacy: [facility]/pharmacy #[id number] Start Date: 07/06/23 Stop Date: 07/20/23 Status: Ordered lisinopril 10 mg oral tablet Start: 11/01/22 13:01:00 EDT, 1 tab, PO, Daily, 90 each, TAKE 1 TABLET BY MOUTH EVERY DAY IN THE MORNING Start Date: 11/01/22 Status: Ordered MetFORMIN (Eqv-Glucophage XR) 500 mg oral tablet, extended release Start: 05/18/23 17:06:00 EST, 1 tab, PO, Daily, Disp# 90 tab, Refills: 1, Pharmacy: [facility]/pharmacy #[id number] Start Date: 05/18/23 Stop Date: 11/14/23 Status: Ordered metoprolol succinate 25 mg oral tablet, extended release Start: 11/01/22 13:01:00 EDT, 25 mg =, PO, Daily, 1 Refill(s), Take 1 Tablet by mouth in the morning. Start Date: 11/01/22 Status: Ordered rosuvastatin 20 mg oral capsule Start: 10/06/23 13:50:00 EDT, 1 cap, PO, Daily, Disp# 90 cap, Refills: 2, Pharmacy: [facility]/pharmacy #[id number] Start Date: 10/06/23 Stop Date: 07/02/24 Status: Ordered Saw [place] Start: 01/31/23 14:48:00 EDT, PO, Daily Start Date: 01/31/23 Status: Ordered turmeric Start: 01/31/23 14:48:00 EDT, PO, Daily Start Date: 01/31/23 Status: Ordered Vitamin C Start: 01/31/23 14:48:00 EDT, PO, Daily Start Date: 01/31/23 Status: Ordered Problem List Condition Confirmation Course Effective Dates Status Health St atus Informant Chronic obstructive pulmonary disease Confirmed Active Diabetes Confirmed Active Lower extremity edema Confirmed Active HLD (hyperlipidemia) Confirmed Active HTN (hypertension) Confirmed Active Lung mass Confirmed Active History of smoking greater than 50 pack years Confirmed Active Diagnosis Diagnosis Type Effective Dates Health Status Clinical Service Informant Chronic obstructive pulmonary disease Discharge Diagnosis 10/06/23 Lung mass Discharge Diagnosis 10/06/23 Diabetes Discharge Diagnosis 10/06/23 HTN (hypertension) Discharge Diagnosis 10/06/23 Lower extremity edema Discharge Diagnosis 10/06/23 HLD (hyperlipidemia) Discharge Diagnosis 10/06/23 Vital Signs Most recent to oldest [Reference Range]: 1 Patient Weight 116.2 kg (10/06/23 12:57 PM) Heart Rate 95 bpm (10/06/23 12:57 PM) Respiratory Rate 20 br/min (10/06/23 12:57 PM) Blood Pressure 130/60mmHg (10/06/23 12:57 PM) Cuff Pulse Pressure 70 mmHg (10/06/23 12:57 PM) Social History Social History Type Response Smoking Status Former Smoker, quit within 31 days - 1 yr Sex Male Patient Care team information Care Team Personnel Name: DO Mitchell Eric Position: Resident Member Role: Primary Care Provider Address: Address: [address] [facility] [address] [place] [address] Care Team Related Persons Name: JESSICA DASILVA
[2023-10-18 13:01] LABS: Base Excess VBG 15.5 mEq/L; HCO3 VBG 45 mmol/L; Oxygen Saturation VBG 70.1 %; PCO2 VBG 82 mmHg (38-50); PO2 VBG 38 mmHg; pH VBG 7.35 (7.36-7.41)
[2023-10-18 13:07] LABS: Hematocrit (blood only) 33.7 % (42.0-52.0); Hemoglobin 9.8 g/dl (14.0-18.0)
[2023-10-18] MEDS: ROSUVASTATIN CALCIUM 20 MG TAB PO SCH (13:22)
[2023-10-18] MEDS: OPTIRAY 320 100ml IV ONE (14:00)
--- NOTE | 2023-10-18 14:08 | Critical Care Progress Note ---
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 -Obtain CT of the chest to better elucidate anatomic changes/progression of disease, any evidence of active obstruction -1 L normal saline bolus prior to contrasted CT scan Greater than [id number] smoking history: Stopped smoking approximately 1 year ago CV: Cor pulmonale -Will likely benefit from diuretics ID: No concern for healthcare/ventilator associated pneumonia, no obvious risk factors as he is coming from the community will de-escalate to single agent Levaquin for 10 days of treatment -BioFire unremarkable GI/Nutrition: Liver mass -Unclear etiology, defer additional evaluation at this time Low-sodium diet Renal: Acute kidney injury by criteria greater than 0.3 increase, unclear baseline holding additional diuretics at this time Heme: Anemia: NOS -Suspect there is a component of chronic anemia: Sending reticulocyte and iron studies Thrombocytopenia: Improved -Peripheral smear ordered, Lovenox 40 mg daily Endocrine: ICU hyperglycemia protocol -Solu-Medrol 40 mg every 8 hours Vascular access: Peripheral IVs Code Status: DO NOT RESUSCITATE in event of cardiac arrest Disposition: ICU given possible need for Precedex to facilitate noninvasive mechanical ventilation Service excellence was able to assist patient in completion of healthcare surrogate paperwork today. I have personally spent 55 minutes of critical care time in the direct management of this patient. This is a life/limb threatening event. This includes time spent evaluating patient, direct bedside care, chart review, placing orders, interpretation of diagnostic studies, discussion with consultants, patient, and/or family members regarding treatment decisions, as well as other required patient management activities. This time is exclusive of all separately billable procedures, and teaching time and separate from and in addition to any other critical care service time. (2) Thrombocytopenia: (3) Anemia: (4) Respiratory acidosis: (5) Cor pulmonale: (6) Respiratory failure: (7) Acute respiratory failure with hypoxia: (8) Ex-smoker: (9) Spindle cell carcinoma of thorax: (10) Chronic respiratory failure with hypoxia and hypercapnia: Admission and Anticipated Discharge Date Admission Date: October 17, 2023 Subjective Overnight patient had recurrence of hypercapnia. He became agitated removing equipment was not wanting to comply/tolerate BiPAP, we eventually were able to transition to high flow nasal cannula which was able to help the patient ventilate. Prior to this event patient was of sound mind had discussions with family and the patient desires to have his brother as ultimate medical decision- maker and in the absence of his brother or his sister. We were able to contact the patient's son who presented to the bedside. During my evaluation in the morning the patient was alert oriented had no recollection of the overnight events when he became hypercapnic and agitated. He did have recollection of my discussions with him yesterday as well as the discussions regarding his healthcare surrogates. He is alert to location time, has understanding of his disease, its underlying process and implications regarding his treatment options. He has affirmed he desires to have his brother as the ultimate decision maker and in his absence his sister would be his primary decision-maker. There is an acknowledgment that they are also engaging the entire family and the medical decision making. Physical Exam Physical Exam: General: Alert. nontoxic. Oriented, clear insight, discusses options and risks benefits clearly. Skin: Warm, dry, Head: Atraumatic Ears, nose, mouth and throat: airway patent Cardiovascular: Normal peripheral perfusion Respiratory: no respiratory distress Gastrointestinal: Non distended Musculoskeletal: No deformity, 3+ edema Results & Data Results & Data Vital Signs (Past 12 Hours) Vital Signs Temp Pulse Pulse Resp BP Pulse Ox O2 Del Method 10/18/23 11:04 154/94 H 10/18/23 11:04 96 H 15 92 10/18/23 11:00 94 H 18 92 10/18/23 10:00 93 H 25 H 91 10/18/23 09:30 BiPAP 10/18/23 09:00 81 23 91 10/18/23 08:00 96 H 29 H 93 10/18/23 07:15 93 H 23 93 10/18/23 07:15 93 H 23 93 BiPAP 10/18/23 07:00 122/57 L 10/18/23 07:00 82 14 92 10/18/23 06:00 81 15 120/62 92 BiPAP 10/18/23 05:00 98 H 18 143/80 H 94 BiPAP 10/18/23 04:54 94 H 20 94 10/18/23 04:23 87 19 91 Nasal Cannula 10/18/23 04:00 37 C 102 H 24 161/84 H 90 High Flow Nasal Cannula 10/18/23 03:00 104 H 22 160/80 H 88 L High Flow Nasal Cannula O2 Flow Rate FiO2 10/18/23 11:04 10/18/23 11:04 10/18/23 11:00 10/18/23 10:00 10/18/23 09:30 10/18/23 09:00 10/18/23 08:00 10/18/23 07:15 70 10/18/23 07:15 70 10/18/23 07:00 10/18/23 07:00 10/18/23 06:00 70 10/18/23 05:00 70 10/18/23 04:54 70 10/18/23 04:23 12 10/18/23 04:00 10 10/18/23 03:00 10 Critical Care Results & Data Vital Signs (Past 12 Hours) Vital Signs Temp Pulse Pulse Resp BP Pulse Ox O2 Del Method 10/18/23 11:04 154/94 H 10/18/23 11:04 96 H 15 92 10/18/23 11:00 94 H 18 92 10/18/23 10:00 93 H 25 H 91 10/18/23 09:30 BiPAP 10/18/23 09:00 81 23 91 10/18/23 08:00 96 H 29 H 93 10/18/23 07:15 93 H 23 93 10/18/23 07:15 93 H 23 93 BiPAP 10/18/23 07:00 122/57 L 10/18/23 07:00 82 14 92 10/18/23 06:00 81 15 120/62 92 BiPAP 10/18/23 05:00 98 H 18 143/80 H 94 BiPAP 10/18/23 04:54 94 H 20 94 10/18/23 04:23 87 19 91 Nasal Cannula 10/18/23 04:00 37 C 102 H 24 161/84 H 90 High Flow Nasal Cannula 10/18/23 03:00 104 H 22 160/80 H 88 L High Flow Nasal Cannula O2 Flow Rate FiO2 10/18/23 11:04 10/18/23 11:04 10/18/23 11:00 10/18/23 10:00 10/18/23 09:30 10/18/23 09:00 10/18/23 08:00 10/18/23 07:15 70 10/18/23 07:15 70 10/18/23 07:00 10/18/23 07:00 10/18/23 06:00 70 10/18/23 05:00 70 10/18/23 04:54 70 10/18/23 04:23 12 10/18/23 04:00 10 10/18/23 03:00 10 Lab & Micro Results (Past 24 Hours) RBC 3.73 M/uL (4.70-6.10) L 10/18/23 WBC 11.40 K/ul (4.8-10.8) H 10/18/23 Hgb 9.8 g/dl (14.0-18.0) L 10/18/23 Hct 33.7 % (42.0-52.0) L 10/18/23 MCV 93.0 fL (80.0-100.0) 10/18/23 MCH 26.8 pg (25.0-34.0) 10/18/23 MCHC 28.8 g/dL (32.0-36.0) L 10/18/23 RDW Standard Deviation 49.9 fL (36.4-46.3) H 10/18/23 RDW Coefficient of Variation 14.6 % (11.5-14.5) H 10/18/23 Plt Count 172 K/uL (130-400) 10/18/23 MPV 11.7 fL (9.4-12.4) 10/18/23 Neutrophils (%) (Auto) 88.7 % 10/18/23 Lymphocytes (%) (Auto) 6.9 % 10/18/23 Monocytes # (Auto) 0.40 K/uL (0.11-0.59) 10/18/23 Eosinophils # (Auto) 0.00 K/uL (0.00-0.50) 10/18/23 Immature Granulocyte % (Auto) 0.8 % 10/18/23 Neutrophils # (Auto) 10.11 K/uL (1.40-6.50) H 10/18/23 Lymphocytes # (Auto) 0.79 K/uL (1.20-3.40) L 10/18/23 Monocytes # (Auto) 0.40 K/uL (0.11-0.59) 10/18/23 Eosinophils # (Auto) 0.00 K/uL (0.00-0.50) 10/18/23 Basophils # (Auto) 0.01 K/uL (0.00-0.20) 10/18/23 Immature Granulocyte # (Auto) 0.09 K/uL (0.01-0.20) 4 Na 146 mmol/L (136-145) H 10/18/23 K 4.2 mmol/L (3.5-5.1) 10/18/23 Cl 98 mmol/L (98-107) 10/18/23 CO2 44 mmol/L (21-32) H* 10/18/23 Anion Gap 4 (3-11) 10/18/23 BUN 35 mg/dl (6-23) H 10/18/23 Creatinine 1.33 mg/dl (0.6-1.4) 10/18/23 Estimated GFR ( Amer) 63.2 ml/min 10/18/23 Estimated GFR (Non-Af Amer) 54.5 ml/min 10/18/23 BUN/Creatinine Ratio 26.3 (10-20) H 10/18/23 Glu 146 mg/dl (70-99(Fasting)) H 10/18/23 Ca 9.2 mg/dl (8.6-10.3) 10/18/23 Total Bilirubin 0.3 mg/dl (0.2-1.0) 10/18/23 AST 12 U/L (13-39) L 10/18/23 ALT 15 U/L (7-52) 10/18/23 Alkaline Phosphatase 62 U/L (34-104) 10/18/23 TP 7.0 gm/dl (6.0-8.3) 10/18/23 Albumin 3.7 gm/dl (3.4-5.0) 10/18/23 Globulin 3.3 gm/dl (2.5-4.0) 10/18/23 Albumin/Globulin Ratio 1.1 (0.9-2) 10/18/23 Calcium Level 9.2 mg/dl (8.6-10.3) 10/18/23 04:00 Venous Blood pH 7.35 (7.36-7.41) L 10/18/23 12:51 Venous Blood Partial Pressure CO2 82 mmHg (38-50) H 10/18/23 12 :51 Venous Blood Partial Pressure O2 38 mmHg 10/18/23 12:51 Venous Blood HCO3 45 mmol/L 10/18/23 12:51 Venous Blood Base Excess 15.5 mEq/L 10/18/23 12:51 Venous Blood Oxygen Saturation 70.1 % 10/18/23 12:51 Fernandez Test Pass 10/18/23 09:21 Microbiology 10/17/23 08:00 Aerobic Blood Culture - Preliminary Blood No growth in Aerobic bottle after 24 hours. 10/17/23 08:07 Aerobic Blood Culture - Preliminary Blood No growth in Aerobic bottle after 24 hours. I & O Totals 24 Hours 10/17/23 10/18/23 10/19/23 06:59 06:59 06:59 Intake Total 1130 / 1130 1150 / 1150 Output Total 2950 / 2950 850 / 850 Balance -1820 / -1820 300 / 300 Cumulative 10/17/23 07:44 thru 10/18/23 12:22 Intake Total 2280 Output Total 3800 Balance -1520 RT Ventilator Mngmt (Last Documented) Ventilator Ordered Settings Respiratory Rate 15 10/18/23 11:04 Fraction of Inspired Oxygen 70 10/18/23 07:15 Ventilator - PT Measurements Respiratory Rate 15 Coding Level of Care Code 28584 CRITICAL CARE 1ST 30-74M Diagnoses Multifocal pneumonia J18.9 Thrombocytopenia D69.6 Anemia D64.9 Anemia type: unspecified type Respiratory acidosis E87.29 Cor pulmonale I27.81 Respiratory failure J96.01; J96.02 Chronicity: acute Respiratory failure complication: hypoxia and hypercapnia Acute respiratory failure with hypoxia J96.01 Ex-smoker Z87.891 Spindle cell carcinoma of thorax C76.1 Chronic respiratory failure with hypoxia and hypercapnia J96.11; J96.12 (3) Anemia Anemia type: unspecified type Qualified Code(s): D64.9 - Anemia, unspecified (6) Respiratory failure Chronicity: acute Respiratory failure complication: hypoxia and hypercapnia Qualified Code(s): J96.01 - Acute respiratory failure with hypoxia; J96.02 - Acute respiratory failure with hypercapnia
--- NOTE | 2023-10-18 15:12 | XRay Report ---
XR chest 1V portable CLINICAL HISTORY: eval lung [place] TECHNIQUE: Single frontal radiograph of the chest was obtained. Comparison: Comparison is made to chest radiograph 10/17/2023 FINDINGS: No lines and tubes are seen. Cardiomegaly is noted. Multifocal opacities are overall increased in con spicuity, most prominent in the right lung. Aeration of the left lung is mildly improved. There is in creased vascular prominence. No evidence of pleural effusion or pneumothorax. IMPRESSION: 1. Multifocal airspace opacities are seen most prominently in the right lung, overall increased in c onspicuity from prior exam. Findings may represent worsening pneumonia versus alveolar edema. Stable cardiomegaly. ACT 112: Negative or not required by law. Electronically signed by: Paulie Anderson M.D. 10/18/2023 3:10 PM
--- NOTE | 2023-10-18 15:23 | CT Scan Report ---
CT chest diagnostic w con CLINICAL HISTORY: known spindle cell mass, bad COPD TECHNIQUE: Multidetector row helical CT of the chest was performed with intravenous contrast. Coronal and sagittal reformations were obtained. Automated dose lowering techniques and/or adjustment accord ing to patient size were utilized for this exam. CT DOSE: 927.79 mGy.cm Comparison: Comparison is made to CT chest 01/31/2023 FINDINGS: Lungs and pleura: Redemonstration of a pleural-based mass in the right lower thorax, enlarged from pr ior exam measuring 16 x 11 cm compared to 9.5 x 13.5 cm. There are trace bilateral pleural effusions and atelectasis. Airspace opacities are seen in the right greater than left lungs. Minimal emphysemat ous changes are seen. Heart and pericardium: Cardiomegaly is seen with biatrial enlargement. Vessels: The pulmonary trunk is enlarged measuring 39 mm. Mediastinum and brianne: Mediastinal nodes measure up to 11 mm in diameter. Chest wall and lower neck: Unremarkable. Abdomen: Unremarkable. Bones: Degenerative changes in the thoracic spine. IMPRESSION: 1. Interval enlargement of right pleural mass in this patient with known spindle cell tumor. 2. Diffuse bilateral airspace opacities compatible with aspiration/pneumonia. Lymphadenopathy is lik elisha reactive. 3. Trace bilateral pleural effusions. ACT 112: Negative or not required by law. Electronically signed by: Paulie Anderson M.D. 10/18/2023 3:21 PM
[2023-10-18] MEDS: ENOXAPARIN INJ 40 MG/0.4 ML SYR SQ SCH ×2 (15:37→15:40)
[2023-10-18 16:49] LABS: Reticulocyte % 2.05 % (0.50-2.00); Reticulocytes # 0.08 10^6/uL (0.020-0.100)
[2023-10-18] MEDS ORDERED: GLUCAGON FOR INJ 1 MG VIAL SQ PRN (19:58)
[2023-10-18] MEDS ORDERED: DEXTROSE 50% 50 ML SYRINGE IV PRN (19:58)
[2023-10-18] MEDS ORDERED: GLUCOSE 10 TAB/TUBE PO PRN (19:58)
[2023-10-18] MEDS ORDERED: GLUCOSE 40% GEL 15 GM TUBE PO PRN (19:58)
[2023-10-18] MEDS ORDERED: CARBOHYDRATES FOR HYPOGLYCEMIA PO PRN (19:58)
[2023-10-18] MEDS: INSULIN ASPART PER UNIT CHARGE SC SCH (20:19)
[2023-10-18] MEDS ORDERED: VANCOMYCIN HCL 1,750 MG in SODIUM CHLORIDE 0.9% 500 ML IV SCH (22:00)
[2023-10-19] MEDS ORDERED: STAT IV Infusion **Titration per Protocol STA (01:30)
[2023-10-19 04:48] LABS: Hemoglobin 9.8 g/dl (14.0-18.0); Immature Granulocytes # (auto) 0.06 K/uL (0.01-0.20); Immature Granulocytes % (auto) 0.5 %; Lymphocytes # (auto) 0.87 K/uL (1.20-3.40); Lymphocytes % (auto) 7.6 %; Mean Corpuscular Hemoglobin 26.9 pg (25.0-34.0); Mean Corpuscular Hgb Conc 29.7 g/dL (32.0-36.0); Mean Corpuscular Volume 90.7 fL (80.0-100.0); Mean Platelet Volume 11.6 fL (9.4-12.4); Monocytes # (auto) 0.63 K/uL (0.11-0.59); Monocytes % (auto) 5.5 %; Neutrophils # (auto) 9.88 K/uL (1.40-6.50); Neutrophils % (auto) 86.4 %; Platelet Count 197 K/uL (130-400); RDW Coefficient of Variation 14.6 % (11.5-14.5); RDW Standard Deviation 48.6 fL (36.4-46.3); Red Blood Count 3.64 M/uL (4.70-6.10); White Blood Count 11.44 K/ul (4.8-10.8)
[2023-10-19 04:56] LABS: Albumin Globulin Ratio 1.2 (0.9-2); Albumin Level 3.5 gm/dl (3.4-5.0); BUN Creatinine Ratio 42.6 (10-20); Bilirubin,Total 0.3 mg/dl (0.2-1.0); Calcium 9.3 mg/dl (8.6-10.3); Creatinine Clr Calc Pharmacy 71.4 ml/min; Est GFR (African American) 65.6 ml/min; Est GFR (Non-African American) 56.6 ml/min; Potassium 4.2 mmol/L (3.5-5.1); Total Protein 6.5 gm/dl (6.0-8.3)
[2023-10-19 05:36] LABS: Ferritin 156.1 ng/ml (8-388)
[2023-10-19] MEDS: ACETAMINOPHEN 325 MG TAB PO PRN (06:34)
[2023-10-19] MEDS: dexMEDEtomidine 200 MCG/50 ML BAG IV SCH (07:37)
[2023-10-19] MEDS: PNEUMOCOCCAL VACCINE (PCV20) 20-VAL CONJ-DIP CRM/PF 0.5 ML SYR IM ONE (07:38)
[2023-10-19] MEDS: levoFLOXacin 750 MG TAB PO SCH (07:57)
--- NOTE | 2023-10-19 08:57 | XRay Report ---
XR chest 1V portable HISTORY: Shortness of breath. COMPARISON: Chest 10/18/2023. FINDINGS: The right lung base mass is again noted. There is progressive interstitial/vascular thicken ing with perihilar airspace opacities. This favors asymmetric pulmonary edema. A superimposed pneumon ia would be difficult to exclude. Small right and trace left pleural effusions persist. The heart rem ains enlarged. There are low lung volumes. No pneumothorax. IMPRESSION: 1. Redemonstration of the right lung base mass. 2. Cardiomegaly with interstitial pulmonary edema and bilateral pleural effusions. ACT 112: Negative or not required by law. Electronically signed by: Marko Kwong M.D. 10/19/2023 8:55 AM
--- NOTE | 2023-10-19 09:51 | Critical Care Progress Note ---
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 -Obtain CT of the chest to better elucidate anatomic changes/progression of disease, any evidence of active obstruction -1 L normal saline bolus prior to contrasted CT scan Greater than [id number] smoking history: Stopped smoking approximately 1 year ago CV: Cor pulmonale -Will likely benefit from diuretics ID: No concern for healthcare/ventilator associated pneumonia, no obvious risk factors as he is coming from the community will de-escalate to single agent Levaquin for 10 days of treatment -BioFire unremarkable GI/Nutrition: Liver mass -Unclear etiology, defer additional evaluation at this time Low-sodium diet Renal: Acute kidney injury by criteria greater than 0.3 increase, unclear baseline holding additional diuretics at this time Heme: Anemia: NOS -Suspect there is a component of chronic anemia: Sending reticulocyte and iron studies Thrombocytopenia: Improved -Peripheral smear ordered, Lovenox 40 mg daily Endocrine: ICU hyperglycemia protocol -Solu-Medrol 40 mg every 8 hours Vascular access: Peripheral IVs Code Status: DO NOT RESUSCITATE in event of cardiac arrest Disposition: ICU given possible need for Precedex to facilitate noninvasive mechanical ventilation Service excellence was able to assist patient in completion of healthcare surrogate paperwork today. I have personally spent 55 minutes of critical care time in the direct management of this patient. This is a life/limb threatening event. This includes time spent evaluating patient, direct bedside care, chart review, placing orders, interpretation of diagnostic studies, discussion with consultants, patient, and/or family members regarding treatment decisions, as well as other required patient management activities. This time is exclusive of all separately billable procedures, and teaching time and separate from and in addition to any other critical care service time. (2) Thrombocytopenia: (3) Anemia: (4) Respiratory acidosis: (5) Cor pulmonale: (6) Respiratory failure: (7) Acute respiratory failure with hypoxia: (8) Ex-smoker: (9) Spindle cell carcinoma of thorax: (10) Chronic respiratory failure with hypoxia and hypercapnia: Admission and Anticipated Discharge Date Admission Date: October 17, 2023 Results & Data Results & Data Vital Signs (Past 12 Hours) Vital Signs Temp Pulse Pulse Resp BP Pulse Ox O2 Del Method 10/19/23 08:00 148/76 H 10/19/23 08:00 101 H 19 91 10/19/23 08:00 High Flow Nasal Cannula 10/19/23 07:15 91 H 23 98 Nasal Cannula 10/19/23 07:00 84 16 93 10/19/23 07:00 149/71 H 10/19/23 06:00 100 H 19 168/98 H 94 High Flow Nasal Cannula 10/19/23 05:00 93 H 20 166/87 H 91 High Flow Nasal Cannula 10/19/23 04:00 36.9 C 84 20 153/82 H 95 High Flow Nasal Cannula 10/19/23 03:00 93 H 19 90 High Flow Nasal Cannula 10/19/23 02:00 77 16 130/62 90 BiPAP 10/19/23 01:30 99 H 24 90 10/19/23 01:00 91 H 18 160/81 H 95 High Flow Nasal Cannula 10/19/23 00:00 36.7 C 90 20 135/72 93 High Flow Nasal Cannula 10/18/23 23:00 96 H 24 164/90 H 91 BiPAP 10/18/23 22:57 97 H 24 92 10/18/23 22:00 92 H 19 160/83 H 91 High Flow Nasal Cannula O2 Flow Rate FiO2 10/19/23 08:00 10/19/23 08:00 10/19/23 08:00 10 10/19/23 07:15 10 10/19/23 07:00 10/19/23 07:00 10/19/23 06:00 10 10/19/23 05:00 10 10/19/23 04:00 10 10/19/23 03:00 10 10/19/23 02:00 50 10/19/23 01:30 50 10/19/23 01:00 10 10/19/23 00:00 10 10/18/23 23:00 50 10/18/23 22:57 50 10/18/23 22:00 10 Coding Level of Care Code None Diagnoses Multifocal pneumonia J18.9 Thrombocytopenia D69.6 Anemia D64.9 Anemia type: unspecified type Respiratory acidosis E87.29 Cor pulmonale I27.81 Respiratory failure J96.01; J96.02 Chronicity: acute Respiratory failure complication: hypoxia and hypercapnia Acute respiratory failure with hypoxia J96.01 Ex-smoker Z87.891 Spindle cell carcinoma of thorax C76.1 Chronic respiratory failure with hypoxia and hypercapnia J96.11; J96.12 (3) Anemia Anemia type: unspecified type Qualified Code(s): D64.9 - Anemia, unspecified (6) Respiratory failure Chronicity: acute Respiratory failure complication: hypoxia and hypercapnia Qualified Code(s): J96.01 - Acute respiratory failure with hypoxia; J96.02 - Acute respiratory failure with hypercapnia
[2023-10-19] MEDS: predniSONE 50 MG TAB PO SCH (10:58)
--- NOTE | 2023-10-19 12:03 | Hospitalist Progress Note ---
Date of Service October 19, 2023 Assessment & Plan (1) Chronic respiratory failure with hypoxia and hypercapnia: Plan: Acute on Chronic hypoxemic/hypercapneic respiratory failure. He is DNR/DNI status. He is intolerant of CPAP. Apparent edema seen on admission chest x- ray. He has received parenteral Lasix on admission. At baseline he requires 2 L of oxygen at rest and 3 to 4 L of oxygen with exertion. Currently requiring high flow oxygen (2) COPD with emphysema: Plan: >100 pack-year tobacco history. PFT 07/2023: Severe restrictive lung disease, no obstructive disease and insignificant bronchodilator response. Mild decrease in DLCO. FEV1/FVC ratio 71, FEV1 34% predicted, FVC 35% predicted (3) HTN (hypertension): Plan: Stable. Continue current medical management (4) Diabetes mellitus: Plan: Sliding scale coverage. ADA diet when able to take p.o. (5) Acute on chronic heart failure with preserved ejection fraction: Plan: Lasix diuresis ordered on admission. Monitor intake and output. Serial chest x-ray. Recent cardiac echo completed in May 2023 reveals normal ejection fraction with mild LVH and evidence of chronic cor pulmonale. 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 No intervention at this time (7) Hypersomnia: Plan: Apparently due to chronically elevated CO2 levels causing CO2 narcosis (8) Cor pulmonale: Plan: Chronic cor pulmonale evident on most recent cardiac echo (9) Multifocal pneumonia: Plan: Appears to be mostly right-sided on admission chest x-ray. Will obtain sputum culture if sputum is produced. He is now on oral Levaquin Plan To be determined Admission and Anticipated Discharge Date Admission Date: October 17, 2023 Subjective Awake and alert. No distress. He continues to require high flow oxygen. In intensive care entry noted. He remains on parenteral steroids and oral Levaquin. CT scan reveals enlargement of right spindle cell lung cancer mass. Suspected liver metastases. Review of Systems 2 Review of Systems: Constitutional-no fever or chills ENT-no blurred vision, no double vision, no epistaxis, no sore throat Respiratory-nonproductive cough. Shortness of breath at rest and with minimal exertion. He denies hemoptysis Cardiac-no palpitations, no chest pain, no syncope GI-no nausea, vomiting, diarrhea, melena, hematochezia -no urinary retention, no urinary incontinence, no dysuria, no hematuria Musculoskeletal-no joint pain, no muscle tenderness Skin-brawny induration noted bilateral lower extremities below the knees Neuro-no isolated weakness, no paresthesia Psych-no depression, no anxiety Physical Exam 2 Physical Exam: General-alert and oriented x3, no fever, no chills HEENT-head atraumatic and normocephalic, pupils equal and reactive to light, extraocular muscles intact Neck-no lymphadenopathy or thyromegaly, trachea midline Chest-markedly diminished breath sounds bilaterally. Coarse rhonchi throughout the right hemithorax. Bilateral and expiratory wheezesi Cardiac-regular rate and rhythm, normal S1 and S2 Abdomen-normal bowel sounds, no hepatosplenomegaly Extremities-brawny induration and mild edema noted bilateral lower extremities below the knees Neuro-cranial nerves II through XII intact, motor and sensory function within normal limits, strength symmetrical, no focal deficits Psych-normal affect, normal mood Results & Data Results & Data Vital Signs (Past 12 Hours) Vital Signs Temp Pulse Pulse Resp BP Pulse Ox O2 Del Method 10/19/23 10:00 89 26 H 93 10/19/23 10:00 148/75 H 10/19/23 09:00 135/69 10/19/23 09:00 94 H 16 80 L 10/19/23 08:00 148/76 H 10/19/23 08:00 101 H 19 91 10/19/23 08:00 High Flow Nasal Cannula 10/19/23 07:15 91 H 23 98 Nasal Cannula 10/19/23 07:00 84 16 93 10/19/23 07:00 149/71 H 10/19/23 06:00 100 H 19 168/98 H 94 High Flow Nasal Cannula 10/19/23 05:00 93 H 20 166/87 H 91 High Flow Nasal Cannula 10/19/23 04:00 36.9 C 84 20 153/82 H 95 High Flow Nasal Cannula 10/19/23 03:00 93 H 19 90 High Flow Nasal Cannula 10/19/23 02:00 77 16 130/62 90 BiPAP 10/19/23 01:30 99 H 24 90 10/19/23 01:00 91 H 18 160/81 H 95 High Flow Nasal Cannula O2 Flow Rate FiO2 10/19/23 10:00 10/19/23 10:00 10/19/23 09:00 10/19/23 09:00 10/19/23 08:00 10/19/23 08:00 10/19/23 08:00 10 10/19/23 07:15 10 10/19/23 07:00 10/19/23 07:00 10/19/23 06:00 10 10/19/23 05:00 10 10/19/23 04:00 10 10/19/23 03:00 10 10/19/23 02:00 50 10/19/23 01:30 50 10/19/23 01:00 10 Laboratory Results 10/19/23 04:18 10/19/23 04:18 PG Care Time/CCT Total # of Minutes Spent Total Time Spent with Patient: Total time spent is greater than 50% in coordination of care (as documented) at patient's floor/unit and/or counseling patient: Coding Level of Care Code 45538 SUB INP/OBS CARE 2/35MIN Diagnoses Chronic respiratory failure with hypoxia and hypercapnia J96.11; J96.12 COPD with emphysema J43.9 HTN (hypertension) I10 Diabetes mellitus E11.9 Acute on chronic heart failure with preserved ejection fraction I50.33 Solitary fibrous neoplasm D49.2 Hypersomnia G47.10 Cor pulmonale I27.81 Multifocal pneumonia J18.9
[2023-10-19] MEDS: ALBUTEROL 0.083% NEBU SOLN 3 ML VIAL NEB PRN (12:46)
[2023-10-19 15:32] LABS: Babesia microti DNA Not Detected (Not Detected)
[2023-10-20 05:24] LABS: Basophils # (auto) 0.02 K/uL (0.00-0.20); Basophils % (auto) 0.2 %; Eosinophils # (auto) 0.01 K/uL (0.00-0.50); Eosinophils % (auto) 0.1 %; Hematocrit (blood only) 34.8 % (42.0-52.0); Hemoglobin 10.3 g/dl (14.0-18.0); Immature Granulocytes # (auto) 0.04 K/uL (0.01-0.20); Immature Granulocytes % (auto) 0.4 %; Lymphocytes # (auto) 2.06 K/uL (1.20-3.40); Lymphocytes % (auto) 19.7 %; Mean Corpuscular Hemoglobin 27.1 pg (25.0-34.0); Mean Corpuscular Hgb Conc 29.6 g/dL (32.0-36.0); Mean Corpuscular Volume 91.6 fL (80.0-100.0); Monocytes # (auto) 1.12 K/uL (0.11-0.59); Monocytes % (auto) 10.7 %; Neutrophils # (auto) 7.23 K/uL (1.40-6.50); Neutrophils % (auto) 68.9 %; Platelet Count 194 K/uL (130-400); RDW Coefficient of Variation 14.5 % (11.5-14.5); RDW Standard Deviation 48.8 fL (36.4-46.3); White Blood Count 10.48 K/ul (4.8-10.8)
[2023-10-20 05:31] LABS: Albumin Globulin Ratio 1.2 (0.9-2); Albumin Level 3.3 gm/dl (3.4-5.0); BUN Creatinine Ratio 41.1 (10-20); Bilirubin,Total 0.4 mg/dl (0.2-1.0); Calcium 9.5 mg/dl (8.6-10.3); Creatinine Clr Calc Pharmacy 83.1 ml/min; Est GFR (African American) 77.8 ml/min; Est GFR (Non-African American) 67.1 ml/min; Globulin 2.8 gm/dl (2.5-4.0); Potassium 4.3 mmol/L (3.5-5.1); Total Protein 6.1 gm/dl (6.0-8.3)
--- NOTE | 2023-10-20 10:44 | XRay Report ---
XR chest 1V portable HISTORY: 67 years-old Male respiratory failure, lung cancer history shortness of breath COMPARISON: Chest radiograph 10/19/2023, chest CT 10/18/2023 TECHNIQUE: AP view of the chest FINDINGS: The right lung base mass is again noted. There is generally stable interstitial/vascular thickening w ith perihilar airspace opacities. This favors asymmetric pulmonary edema. A superimposed pneumonia wo uld be difficult to exclude. Small right and trace left pleural effusions persist. The heart remains enlarged. There are low lung volumes. No pneumothorax. IMPRESSION: 1. Right basilar mass redemonstrated. 2. Cardiomegaly with asymmetric interstitial pulmonary edema and bilateral pleural effusions stable f rom yesterday's exam. ACT 112: Negative or not required by law. The above report was generated using voice recognition software. It may contain grammatical, syntax o r spelling errors. Electronically signed by: Manny Paredes M.D. 10/20/2023 10:43 AM
--- NOTE | 2023-10-20 11:25 | Critical Care Progress Note ---
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 -CT scan chest results reviewed Greater than [id number] smoking history: Stopped smoking approximately 1 year ago CV: Cor pulmonale -Continue diuretic therapy ID: No concern for healthcare/ventilator associated pneumonia, no obvious risk factors as he is coming from the community will de-escalate to single agent Levaquin for 10 days of treatment -[employer] unremarkable GI/Nutrition: Liver mass -Unclear etiology, defer additional evaluation at this time Low-sodium diet Renal: Acute kidney injury by criteria greater than 0.3 increase, unclear baseline holding additional diuretics at this time Heme: Anemia: NOS -Suspect there is a component of chronic anemia: Sending reticulocyte and iron studies Thrombocytopenia: Resolved -Peripheral smear reviewed, Lovenox 40 mg daily Endocrine: ICU hyperglycemia protocol -Oral prednisone taper placed Vascular access: Peripheral IVs Code Status: DO NOT RESUSCITATE in event of cardiac arrest Disposition: Stable for downgrade out of ICU (2) Thrombocytopenia: (3) Anemia: (4) Respiratory acidosis: (5) Cor pulmonale: (6) Respiratory failure: (7) Acute respiratory failure with hypoxia: (8) Ex-smoker: (9) Spindle cell carcinoma of thorax: (10) Chronic respiratory failure with hypoxia and hypercapnia: Admission and Anticipated Discharge Date Admission Date: October 17, 2023 Subjective Feels much better. Apologetic for. Swelling he has been hypercapnic encephalopathic. Reports he enjoys the sequential compression devices Physical Exam Physical Exam: General: Alert. nontoxic. Oriented, clear insight, discusses options and risks benefits clearly. Skin: Warm, dry, Head: Atraumatic Ears, nose, mouth and throat: airway patent Cardiovascular: Normal peripheral perfusion Respiratory: no respiratory distress Gastrointestinal: Non distended Musculoskeletal: No deformity, 2+ edema Results & Data Results & Data Vital Signs (Past 12 Hours) Vital Signs Temp Pulse Pulse Resp BP Pulse Ox O2 Del Method 10/20/23 07:41 Nasal Cannula 10/20/23 07:02 87 19 93 Nasal Cannula 10/20/23 06:00 177/92 H 10/20/23 06:00 88 12 90 10/20/23 05:00 69 14 90 10/20/23 05:00 169/84 H 10/20/23 04:00 76 18 92 10/20/23 04:00 161/80 H 10/20/23 03:43 36.8 C 10/20/23 03:00 70 20 149/70 H 96 10/20/23 02:00 72 18 158/82 H 94 10/20/23 01:00 71 19 173/81 H 94 10/20/23 00:15 37.1 C 10/20/23 00:00 75 20 161/83 H 94 10/20/23 00:00 73 O2 Flow Rate 10/20/23 07:41 6 10/20/23 07:02 6 10/20/23 06:00 10/20/23 06:00 10/20/23 05:00 6 10/20/23 05:00 10/20/23 04:00 10/20/23 04:00 10/20/23 03:43 10/20/23 03:00 10/20/23 02:00 10/20/23 01:00 10/20/23 00:15 10/20/23 00:00 10/20/23 00:00 Critical Care Results & Data Vital Signs (Past 12 Hours) Vital Signs Temp Pulse Pulse Resp BP Pulse Ox O2 Del Method 10/20/23 11:28 36.7 C 10/20/23 11:00 162/79 H 10/20/23 11:00 81 26 H 87 L Nasal Cannula 10/20/23 10:00 86 28 H 88 L 10/20/23 10:00 160/83 H 10/20/23 09:00 86 21 88 L 10/20/23 08:00 89 14 87 L 10/20/23 07:41 Nasal Cannula 10/20/23 07:30 36.7 C 10/20/23 07:02 87 19 93 Nasal Cannula 10/20/23 07:00 81 14 91 10/20/23 06:00 177/92 H 10/20/23 06:00 88 12 90 10/20/23 05:00 69 14 90 10/20/23 05:00 169/84 H 10/20/23 04:00 76 18 92 10/20/23 04:00 161/80 H 10/20/23 03:43 36.8 C 10/20/23 03:00 70 20 149/70 H 96 10/20/23 02:00 72 18 158/82 H 94 O2 Flow Rate 10/20/23 11:28 10/20/23 11:00 10/20/23 11:00 6 10/20/23 10:00 10/20/23 10:00 10/20/23 09:00 10/20/23 08:00 10/20/23 07:41 6 10/20/23 07:30 10/20/23 07:02 6 10/20/23 07:00 10/20/23 06:00 10/20/23 06:00 10/20/23 05:00 6 10/20/23 05:00 10/20/23 04:00 10/20/23 04:00 10/20/23 03:43 10/20/23 03:00 10/20/23 02:00 Lab & Micro Results (Past 24 Hours) RBC 3.80 M/uL (4.70-6.10) L 10/20/23 WBC 10.48 K/ul (4.8-10.8) 10/20/23 Hgb 10.3 g/dl (14.0-18.0) L 10/20/23 Hct 34.8 % (42.0-52.0) L 10/20/23 MCV 91.6 fL (80.0-100.0) 10/20/23 MCH 27.1 pg (25.0-34.0) 10/20/23 MCHC 29.6 g/dL (32.0-36.0) L 10/20/23 RDW Standard Deviation 48.8 fL (36.4-46.3) H 10/20/23 RDW Coefficient of Variation 14.5 % (11.5-14.5) 10/20/23 Plt Count 194 K/uL (130-400) 10/20/23 MPV 12.0 fL (9.4-12.4) 10/20/23 Neutrophils (%) (Auto) 68.9 % 10/20/23 Lymphocytes (%) (Auto) 19.7 % 10/20/23 Monocytes # (Auto) 1.12 K/uL (0.11-0.59) H 10/20/23 Eosinophils # (Auto) 0.01 K/uL (0.00-0.50) 10/20/23 Immature Granulocyte % (Auto) 0.4 % 10/20/23 Neutrophils # (Auto) 7.23 K/uL (1.40-6.50) H 10/20/23 Lymphocytes # (Auto) 2.06 K/uL (1.20-3.40) 10/20/23 Monocytes # (Auto) 1.12 K/uL (0.11-0.59) H 10/20/23 Eosinophils # (Auto) 0.01 K/uL (0.00-0.50) 10/20/23 Basophils # (Auto) 0.02 K/uL (0.00-0.20) 10/20/23 Immature Granulocyte # (Auto) 0.04 K/uL (0.01-0.20) 4 Na 142 mmol/L (136-145) 10/20/23 K 4.3 mmol/L (3.5-5.1) 10/20/23 Cl 96 mmol/L (98-107) L 10/20/23 CO2 45 mmol/L (21-32) H* 10/20/23 Anion Gap 1 (3-11) L 10/20/23 BUN 46 mg/dl (6-23) H 10/20/23 Creatinine 1.12 mg/dl (0.6-1.4) 10/20/23 Estimated GFR ( Amer) 77.8 ml/min 10/20/23 Estimated GFR (Non-Af Amer) 67.1 ml/min 10/20/23 BUN/Creatinine Ratio 41.1 (10-20) H 10/20/23 Glu 119 mg/dl (70-99(Fasting)) H 10/20/23 Ca 9.5 mg/dl (8.6-10.3) 10/20/23 Total Bilirubin 0.4 mg/dl (0.2-1.0) 10/20/23 AST 9 U/L (13-39) L 10/20/23 ALT 10 U/L (7-52) 10/20/23 Alkaline Phosphatase 49 U/L (34-104) 10/20/23 TP 6.1 gm/dl (6.0-8.3) 10/20/23 Albumin 3.3 gm/dl (3.4-5.0) L 10/20/23 Globulin 2.8 gm/dl (2.5-4.0) 10/20/23 Albumin/Globulin Ratio 1.2 (0.9-2) 10/20/23 Calcium Level 9.5 mg/dl (8.6-10.3) 10/20/23 04:33 Diagnostic Findings (Past 24 Hours) Chest X-Ray 10/20/23 09:04 XR chest 1V portable HISTORY: 67 years-old Male respiratory failure, lung cancer history shortness of breath COMPARISON: Chest radiograph 10/19/2023, chest CT 10/18/2023 TECHNIQUE: AP view of the chest FINDINGS: The right lung base mass is again noted. There is generally stable interstitial/vascular thickening with perihilar airspace opacities. This favors asymmetric pulmonary edema. A superimposed pneumonia would be difficult to exclude. Small right and trace left pleural effusions persist. The heart remains enlarged. There are low lung volumes. No pneumothorax. IMPRESSION: 1. Right basilar mass redemonstrated. 2. Cardiomegaly with asymmetric interstitial pulmonary edema and bilateral pleural effusions stable from yesterday's exam. ACT 112: Negative or not required by law. The above report was generated using voice recognition software. It may contain grammatical, syntax or spelling errors. Electronically signed by: Manny Paredes M.D. 10/20/2023 10:43 AM I & O Totals 24 Hours 10/19/23 10/20/23 10/21/23 06:59 06:59 06:59 Intake Total 1750 / 1750 900 / 900 Output Total 1750 / 1750 1974 / 1974 1700 / 1700 Balance 0 / 0 -1075 / -1075 -1700 / -1700 Cumulative 10/17/23 07:44 thru 10/20/23 13:42 Intake Total 3780 Output Total 8375 Balance -4595 RT Ventilator Mngmt (Last Documented) Ventilator Ordered Settings Respiratory Rate 26 10/20/23 11:00 Fraction of Inspired Oxygen 50 10/19/23 22:31 Ventilator - PT Measurements Respiratory Rate 26 Coding Level of Care Code 74734 SUB INP/OBS CARE 06/29MIN Diagnoses Multifocal pneumonia J18.9 Thrombocytopenia D69.6 Anemia D64.9 Anemia type: unspecified type Respiratory acidosis E87.29 Cor pulmonale I27.81 Respiratory failure J96.01; J96.02 Chronicity: acute Respiratory failure complication: hypoxia and hypercapnia Acute respiratory failure with hypoxia J96.01 Ex-smoker Z87.891 Spindle cell carcinoma of thorax C76.1 Chronic respiratory failure with hypoxia and hypercapnia J96.11; J96.12 (3) Anemia Anemia type: unspecified type Qualified Code(s): D64.9 - Anemia, unspecified (6) Respiratory failure Chronicity: acute Respiratory failure complication: hypoxia and hypercapnia Qualified Code(s): J96.01 - Acute respiratory failure with hypoxia; J96.02 - Acute respiratory failure with hypercapnia
--- NOTE | 2023-10-20 14:13 | Hospitalist Progress Note ---
Date of Service October 20, 2023 Assessment & Plan (1) Chronic respiratory failure with hypoxia and hypercapnia: Plan: Acute on Chronic hypoxemic/hypercapneic respiratory failure. He is DNR/DNI status. He is intolerant of CPAP. Apparent edema seen on admission chest x- ray. Continue Lasix diuresis. Monitor intake and output. Serial chest x-ray. Fortunately, the oxygen requirements have decreased. At baseline he requires 2 L of oxygen at rest and 3 to 4 L of oxygen with exertion. Currently requiring 6 L (2) COPD with emphysema: Plan: >100 pack-year tobacco history. PFT 07/2023: Severe restrictive lung disease, no obstructive disease and insignificant bronchodilator response. Mild decrease in DLCO. FEV1/FVC ratio 71, FEV1 34% predicted, FVC 35% predicted (3) HTN (hypertension): Plan: Stable. Continue current medical management (4) Diabetes mellitus: Plan: Sliding scale coverage. ADA diet when able to take p.o. (5) Acute on chronic heart failure with preserved ejection fraction: Plan: Continue Lasix diuresis. Monitor intake and output. Serial chest x-ray. Recent cardiac echo completed in May 2023 reveals normal ejection fraction with mild LVH and evidence of chronic cor pulmonale. 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 No intervention at this time (7) Hypersomnia: Plan: Apparently due to chronically elevated CO2 levels causing CO2 narcosis (8) Cor pulmonale: Plan: Chronic cor pulmonale evident on most recent cardiac echo (9) Multifocal pneumonia: Plan: Appears to be mostly right-sided on admission chest x-ray. Will obtain sputum culture if sputum is produced. He is now on oral Levaquin Plan Stable for transfer out of the ICU today, October 19. OT and PT assessments requested. He probably will need rehab placement before he can return to his previous living arrangements. Admission and Anticipated Discharge Date Admission Date: October 17, 2023 Subjective Alert and oriented. His oxygen requirements have decreased and his chest x-ray today, October 19, looks better. I think we should continue parenteral Lasix diuresis and dry his lungs out is much as possible. He is on a prednisone tapering dose. Will repeat cardiac echo since his last echo was 6 months ago. He is medically stable for transfer out of the ICU at this point Review of Systems 2 Review of Systems: Constitutional-no fever or chills ENT-no blurred vision, no double vision, no epistaxis, no sore throat Respiratory-nonproductive cough. Shortness of breath at rest and with minimal exertion. He denies hemoptysis Cardiac-no palpitations, no chest pain, no syncope GI-no nausea, vomiting, diarrhea, melena, hematochezia -no urinary retention, no urinary incontinence, no dysuria, no hematuria Musculoskeletal-no joint pain, no muscle tenderness Skin-brawny induration noted bilateral lower extremities below the knees Neuro-no isolated weakness, no paresthesia Psych-no depression, no anxiety Physical Exam 2 Physical Exam: General-alert and oriented x3, no fever, no chills HEENT-head atraumatic and normocephalic, pupils equal and reactive to light, extraocular muscles intact Neck-no lymphadenopathy or thyromegaly, trachea midline Chest-markedly diminished breath sounds bilaterally. Coarse rhonchi throughout the right hemithorax. Bilateral and expiratory wheezesi Cardiac-regular rate and rhythm, normal S1 and S2 Abdomen-normal bowel sounds, no hepatosplenomegaly Extremities-brawny induration and mild edema noted bilateral lower extremities below the knees Neuro-cranial nerves II through XII intact, motor and sensory function within normal limits, strength symmetrical, no focal deficits Psych-normal affect, normal mood Results & Data Results & Data Vital Signs (Past 12 Hours) Vital Signs Temp Pulse Pulse Resp BP Pulse Ox O2 Del Method 10/20/23 11:28 36.7 C 10/20/23 11:00 162/79 H 10/20/23 11:00 81 26 H 87 L Nasal Cannula 10/20/23 10:00 86 28 H 88 L 10/20/23 10:00 160/83 H 10/20/23 09:00 86 21 88 L 10/20/23 08:00 89 14 87 L 10/20/23 07:41 Nasal Cannula 10/20/23 07:30 36.7 C 10/20/23 07:02 87 19 93 Nasal Cannula 10/20/23 07:00 81 14 91 10/20/23 06:00 177/92 H 10/20/23 06:00 88 12 90 10/20/23 05:00 69 14 90 10/20/23 05:00 169/84 H 10/20/23 04:00 76 18 92 10/20/23 04:00 161/80 H 10/20/23 03:43 36.8 C 10/20/23 03:00 70 20 149/70 H 96 O2 Flow Rate 10/20/23 11:28 10/20/23 11:00 10/20/23 11:00 6 10/20/23 10:00 10/20/23 10:00 10/20/23 09:00 10/20/23 08:00 10/20/23 07:41 6 10/20/23 07:30 10/20/23 07:02 6 10/20/23 07:00 10/20/23 06:00 10/20/23 06:00 10/20/23 05:00 6 10/20/23 05:00 10/20/23 04:00 10/20/23 04:00 10/20/23 03:43 10/20/23 03:00 Laboratory Results 10/20/23 04:33 10/20/23 04:33 PG Care Time/CCT Total # of Minutes Spent Total Time Spent with Patient: Total time spent is greater than 50% in coordination of care (as documented) at patient's floor/unit and/or counseling patient: Coding Level of Care Code 11724 SUB INP/OBS CARE 3/50MIN Diagnoses Chronic respiratory failure with hypoxia and hypercapnia J96.11; J96.12 COPD with emphysema J43.9 HTN (hypertension) I10 Diabetes mellitus E11.9 Acute on chronic heart failure with preserved ejection fraction I50.33 Solitary fibrous neoplasm D49.2 Hypersomnia G47.10 Cor pulmonale I27.81 Multifocal pneumonia J18.9
--- NOTE | 2023-10-20 17:30 | XCELERA ---
[id number]
[2023-10-20] MEDS: FUROSEMIDE 40 MG/4 ML VIAL IV SCH (20:26)
[2023-10-21 07:13] LABS: Albumin Globulin Ratio 1.3 (0.9-2); Albumin Level 3.6 gm/dl (3.4-5.0); BUN Creatinine Ratio 37.4 (10-20); Bilirubin,Total 0.4 mg/dl (0.2-1.0); Calcium 9.2 mg/dl (8.6-10.3); Creatinine Clr Calc Pharmacy 85.6 ml/min; Est GFR (African American) 82.2 ml/min; Globulin 2.8 gm/dl (2.5-4.0); Potassium 3.9 mmol/L (3.5-5.1); Total Protein 6.4 gm/dl (6.0-8.3)
--- NOTE | 2023-10-21 10:27 | Hospitalist Progress Note ---
Date of Service October 21, 2023 Assessment & Plan (1) Chronic respiratory failure with hypoxia and hypercapnia: Plan: Acute on Chronic hypoxemic/hypercapneic respiratory failure. He is DNR/DNI status. He is intolerant of CPAP. Apparent edema seen on admission chest x- ray. Continue Lasix diuresis. Brisk diuretic response so far. Monitor intake and output. Will repeat chest x-ray again tomorrow, October 21. Fortunately, the oxygen requirements have decreased. At baseline he requires 2 L of oxygen at rest and 3 to 4 L of oxygen with exertion. Currently requiring 6 L (2) COPD with emphysema: Plan: >100 pack-year tobacco history. PFT 07/2023: Severe restrictive lung disease, no obstructive disease and insignificant bronchodilator response. Mild decrease in DLCO. FEV1/FVC ratio 71, FEV1 34% predicted, FVC 35% predicted (3) HTN (hypertension): Plan: Stable. Continue current medical management (4) Diabetes mellitus: Plan: Sliding scale coverage. ADA diet when able to take p.o. (5) Acute on chronic heart failure with preserved ejection fraction: Plan: Continue Lasix diuresis. Monitor intake and output. Serial chest x-ray. Recent cardiac echo completed in May 2023 reveals normal ejection fraction with mild LVH and evidence of chronic cor pulmonale. Repeat cardiac echo reveals normal ejection fraction with resolution of findings of cor pulmonale. 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 No intervention at this time (7) Hypersomnia: Plan: Apparently due to chronically elevated CO2 levels causing CO2 narcosis on admission. Resolved. Now he states he cannot sleep due to in an uncomfortable bed (8) Cor pulmonale: Plan: The cor pulmonale seen on echo completed in May/2023 is not present on current echo study. Normal ejection fraction. (9) Multifocal pneumonia: Plan: Appears to be mostly right-sided on admission chest x-ray. Will obtain sputum culture if sputum is produced. He is now on oral Levaquin (10) Insomnia: Plan: Trazodone ordered at bedtime Plan To be determined. OT and PT assessments requested. He probably will need rehab placement before he can return to his previous living arrangements. Admission and Anticipated Discharge Date Admission Date: October 17, 2023 Subjective Alert and oriented. He states the bed is uncomfortable and he cannot sleep. Trazodone ordered at bedtime. Will repeat portable chest x-ray again tomorrow. He has had brisk diuresis with IV Lasix which continues. He is complaining about the Graham catheter but this probably should stay in place while he is on IV Lasix. He remains on 6 L of oxygen with saturation 96%. Cardiac echo reveals normal ejection fraction with resolution of the findings of cor pulmonale seen on the previous cardiac echo completed May 2023. He also remains on oral Levaquin and a prednisone tapering dose Review of Systems 2 Review of Systems: Constitutional-no fever or chills ENT-no blurred vision, no double vision, no epistaxis, no sore throat Respiratory-nonproductive cough. Shortness of breath at rest and with minimal exertion. He denies hemoptysis Cardiac-no palpitations, no chest pain, no syncope GI-no nausea, vomiting, diarrhea, melena, hematochezia -no urinary retention, no urinary incontinence, no dysuria, no hematuria Musculoskeletal-no joint pain, no muscle tenderness Skin-brawny induration noted bilateral lower extremities below the knees Neuro-no isolated weakness, no paresthesia Psych-no depression, no anxiety Physical Exam 2 Physical Exam: General-alert and oriented x3, no fever, no chills HEENT-head atraumatic and normocephalic, pupils equal and reactive to light, extraocular muscles intact Neck-no lymphadenopathy or thyromegaly, trachea midline Chest-markedly diminished breath sounds bilaterally. Coarse rhonchi throughout the right hemithorax. Bilateral and expiratory wheezesi Cardiac-regular rate and rhythm, normal S1 and S2 Abdomen-normal bowel sounds, no hepatosplenomegaly Extremities-brawny induration and mild edema noted bilateral lower extremities below the knees Neuro-cranial nerves II through XII intact, motor and sensory function within normal limits, strength symmetrical, no focal deficits Psych-normal affect, normal mood Results & Data Results & Data Vital Signs (Past 12 Hours) Vital Signs Temp Pulse Pulse Resp BP Pulse Ox O2 Del Method 10/21/23 08:00 36.7 C 87 20 163/79 H 96 Nasal Cannula 10/21/23 07:18 Nasal Cannula 10/21/23 07:18 77 10/21/23 07:14 87 15 92 Nasal Cannula 10/21/23 03:01 36.9 C 76 18 169/87 H 95 Nasal Cannula 10/20/23 22:55 76 25 H 90 10/20/23 22:33 37.0 C 76 18 164/82 H 96 Nasal Cannula 10/20/23 22:31 37.1 C 10/20/23 22:31 Nasal Cannula O2 Flow Rate 10/21/23 08:00 6 10/21/23 07:18 6 10/21/23 07:18 10/21/23 07:14 6 10/21/23 03:01 6 10/20/23 22:55 6 10/20/23 22:33 6 10/20/23 22:31 10/20/23 22:31 6 Laboratory Results 10/20/23 04:33 10/21/23 05:47 PG Care Time/CCT Total # of Minutes Spent Total Time Spent with Patient: Total time spent is greater than 50% in coordination of care (as documented) at patient's floor/unit and/or counseling patient: Coding Level of Care Code 88621 SUB INP/OBS CARE 3/50MIN Diagnoses Chronic respiratory failure with hypoxia and hypercapnia J96.11; J96.12 COPD with emphysema J43.9 HTN (hypertension) I10 Diabetes mellitus E11.9 Acute on chronic heart failure with preserved ejection fraction I50.33 Solitary fibrous neoplasm D49.2 Hypersomnia G47.10 Cor pulmonale I27.81 Multifocal pneumonia J18.9 Insomnia G47.00
[2023-10-21] MEDS: lisinopril 10 MG TAB PO SCH (15:20)
[2023-10-21] MEDS: METOPROLOL SUCC 25MG EXT REL TAB PO SCH (15:47)
[2023-10-21] MEDS: traZODone HCL 50 MG TAB PO SCH (20:28)
[2023-10-22 06:16] LABS: Basophils # (auto) 0.01 K/uL (0.00-0.20); Basophils % (auto) 0.1 %; Eosinophils # (auto) 0.07 K/uL (0.00-0.50); Eosinophils % (auto) 0.6 %; Hematocrit (blood only) 38.3 % (42.0-52.0); Hemoglobin 11.4 g/dl (14.0-18.0); Immature Granulocytes # (auto) 0.07 K/uL (0.01-0.20); Immature Granulocytes % (auto) 0.6 %; Lymphocytes # (auto) 2.68 K/uL (1.20-3.40); Lymphocytes % (auto) 21.9 %; Mean Corpuscular Hemoglobin 26.5 pg (25.0-34.0); Mean Corpuscular Hgb Conc 29.8 g/dL (32.0-36.0); Mean Corpuscular Volume 89.1 fL (80.0-100.0); Mean Platelet Volume 11.4 fL (9.4-12.4); Monocytes # (auto) 1.39 K/uL (0.11-0.59); Monocytes % (auto) 11.4 %; Neutrophils % (auto) 65.4 %; Platelet Count 197 K/uL (130-400); RDW Coefficient of Variation 14.5 % (11.5-14.5); RDW Standard Deviation 46.7 fL (36.4-46.3); White Blood Count 12.22 K/ul (4.8-10.8)
[2023-10-22 07:08] LABS: BUN Creatinine Ratio 32.1 (10-20); Creatinine Clr Calc Pharmacy 82.7 ml/min; Est GFR (African American) 80.4 ml/min; Est GFR (Non-African American) 69.4 ml/min; Potassium 3.8 mmol/L (3.5-5.1)
--- NOTE | 2023-10-22 08:21 | XRay Report ---
XR chest 1V portable HISTORY: 67 years-old Male CHF, lung cancer, COPD acute shortness of breath COMPARISON: 10/20/2023 TECHNIQUE: AP view of the chest FINDINGS: The right lung base mass is again noted. There is generally stable interstitial/vascular thickening w ith perihilar airspace opacities. This favors asymmetric pulmonary edema. A superimposed pneumonia wo uld be difficult to exclude. Small right and trace left pleural effusions persist. The heart remains enlarged. There are low lung volumes. No pneumothorax. IMPRESSION: 1. Right basilar mass redemonstrated. 2. Cardiomegaly with moderate improvement of the asymmetric interstitial pulmonary edema. 2. Right greater than left pleural effusions again noted. ACT 112: Negative or not required by law. The above report was generated using voice recognition software. It may contain grammatical, syntax o r spelling errors. Electronically signed by: Manny Paredes M.D. 10/22/2023 8:19 AM
[2023-10-22] MEDS: predniSONE 20 MG TAB PO SCH (09:40)
--- NOTE | 2023-10-22 14:47 | Hospitalist Progress Note ---
Date of Service October 22, 2023 Assessment & Plan (1) Chronic respiratory failure with hypoxia and hypercapnia: Plan: Acute on Chronic hypoxemic/hypercapneic respiratory failure. He is DNR/DNI status. He is intolerant of CPAP. Apparent edema seen on admission chest x-ray has improved with parenteral diuresis. Chest x-ray done today, October 21, looks better. Continue Lasix diuresis. Fortunately, the oxygen requirements have decreased. At baseline he requires 2 L of oxygen at rest and 3 to 4 L of oxygen with exertion. Currently requiring 5 L (2) COPD with emphysema: Plan: >100 pack-year tobacco history. PFT 07/2023: Severe restrictive lung disease, no obstructive disease and insignificant bronchodilator response. Mild decrease in DLCO. FEV1/FVC ratio 71, FEV1 34% predicted, FVC 35% predicted (3) HTN (hypertension): Plan: Stable. Continue current medical management (4) Diabetes mellitus: Plan: Sliding scale coverage. ADA diet (5) Acute on chronic heart failure with preserved ejection fraction: Plan: Improving. Continue Lasix diuresis. Monitor intake and output. Serial chest x-ray. Recent cardiac echo completed in May 2023 reveals normal ejection fraction with mild LVH and evidence of chronic cor pulmonale. Repeat cardiac echo reveals normal ejection fraction with resolution of findings of cor pulmonale. 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 No intervention at this time (7) Hypersomnia: Plan: Apparently due to chronically elevated CO2 levels causing CO2 narcosis on admission. Resolved. Now he states he cannot sleep due to in an uncomfortable bed (8) Cor pulmonale: Plan: The cor pulmonale seen on echo completed in May/2023 is not present on current echo study. Normal ejection fraction. (9) Multifocal pneumonia: Plan: Appears to be mostly right-sided on admission chest x-ray. Will obtain sputum culture if sputum is produced. He is now on oral Levaquin (10) Insomnia: Plan: Trazodone ordered at bedtime Plan Anticipate eventual discharge to home with home health services. Hopefully within the next day or 2 Admission and Anticipated Discharge Date Admission Date: October 17, 2023 Subjective He looks better clinically although he always has multiple complaints. Chest x- ray done today, October 21, definitely looks better. He continues to have excellent diuresis with parenteral Lasix. Oxygen requirement is now down to 5 L. I spoke to his brother Tyrel and brought him up-to-date. Cardiac echo this admission reveals normal ejection fraction with resolution of findings of cor pulmonale. Creatinine stable at 1.0. Physical therapy recommends return to home at the time of discharge with home health services Review of Systems 2 Review of Systems: Constitutional-no fever or chills ENT-no blurred vision, no double vision, no epistaxis, no sore throat Respiratory-nonproductive cough. Shortness of breath at rest and with minimal exertion. He denies hemoptysis Cardiac-no palpitations, no chest pain, no syncope GI-no nausea, vomiting, diarrhea, melena, hematochezia -no urinary retention, no urinary incontinence, no dysuria, no hematuria Musculoskeletal-no joint pain, no muscle tenderness Skin-brawny induration noted bilateral lower extremities below the knees Neuro-no isolated weakness, no paresthesia Psych-no depression, no anxiety Physical Exam 2 Physical Exam: General-alert and oriented x3, no fever, no chills HEENT-head atraumatic and normocephalic, pupils equal and reactive to light, extraocular muscles intact Neck-no lymphadenopathy or thyromegaly, trachea midline Chest-markedly diminished breath sounds bilaterally. Coarse rhonchi throughout the right hemithorax. Bilateral and expiratory wheezesi Cardiac-regular rate and rhythm, normal S1 and S2 Abdomen-normal bowel sounds, no hepatosplenomegaly Extremities-brawny induration and mild edema noted bilateral lower extremities below the knees Neuro-cranial nerves II through XII intact, motor and sensory function within normal limits, strength symmetrical, no focal deficits Psych-normal affect, normal mood Results & Data Results & Data Vital Signs (Past 12 Hours) Vital Signs Temp Pulse Pulse Resp BP Pulse Ox O2 Del Method 10/22/23 12:30 95 10/22/23 10:24 36.5 C 84 18 110/65 91 Nasal Cannula 10/22/23 07:45 Nasal Cannula 10/22/23 07:45 59 L 10/22/23 07:44 37.1 C 85 19 131/69 92 Nasal Cannula 10/22/23 07:19 79 16 91 Nasal Cannula 10/22/23 02:54 37.0 C 84 18 146/76 H 97 High Flow Nasal Cannula O2 Flow Rate 10/22/23 12:30 10/22/23 10:24 5 10/22/23 07:45 5 10/22/23 07:45 10/22/23 07:44 5 10/22/23 07:19 6 10/22/23 02:54 5 Laboratory Results 10/22/23 05:44 10/22/23 05:44 PG Care Time/CCT Total # of Minutes Spent Total Time Spent with Patient: Total time spent is greater than 50% in coordination of care (as documented) at patient's floor/unit and/or counseling patient: Coding Level of Care Code 45095 SUB INP/OBS CARE 3/50MIN Diagnoses Chronic respiratory failure with hypoxia and hypercapnia J96.11; J96.12 COPD with emphysema J43.9 HTN (hypertension) I10 Diabetes mellitus E11.9 Acute on chronic heart failure with preserved ejection fraction I50.33 Solitary fibrous neoplasm D49.2 Hypersomnia G47.10 Cor pulmonale I27.81 Multifocal pneumonia J18.9 Insomnia G47.00
[2023-10-22] MEDS: guaiFENesin 600 MG TABCR PO SCH (21:00)
[2023-10-23 06:13] LABS: Basophils # (auto) 0.01 K/uL (0.00-0.20); Basophils % (auto) 0.1 %; Eosinophils # (auto) 0.14 K/uL (0.00-0.50); Hematocrit (blood only) 37.1 % (42.0-52.0); Hemoglobin 11.2 g/dl (14.0-18.0); Immature Granulocytes # (auto) 0.08 K/uL (0.01-0.20); Immature Granulocytes % (auto) 0.6 %; Lymphocytes # (auto) 3.17 K/uL (1.20-3.40); Lymphocytes % (auto) 23.2 %; Mean Corpuscular Hgb Conc 30.2 g/dL (32.0-36.0); Mean Corpuscular Volume 89.4 fL (80.0-100.0); Mean Platelet Volume 11.4 fL (9.4-12.4); Monocytes # (auto) 1.21 K/uL (0.11-0.59); Monocytes % (auto) 8.9 %; Neutrophils # (auto) 9.04 K/uL (1.40-6.50); Neutrophils % (auto) 66.2 %; Platelet Count 192 K/uL (130-400); RDW Coefficient of Variation 14.6 % (11.5-14.5); RDW Standard Deviation 47.2 fL (36.4-46.3); Red Blood Count 4.15 M/uL (4.70-6.10); White Blood Count 13.65 K/ul (4.8-10.8)
[2023-10-23 06:28] LABS: BUN Creatinine Ratio 29.1 (10-20); Calcium 9.1 mg/dl (8.6-10.3); Creatinine Clr Calc Pharmacy 70.2 ml/min; Est GFR (African American) 66.8 ml/min; Est GFR (Non-African American) 57.7 ml/min; Potassium 3.6 mmol/L (3.5-5.1)
--- NOTE | 2023-10-23 14:24 | Hospitalist Progress Note ---
Date of Service October 23, 2023 Assessment & Plan (1) Chronic respiratory failure with hypoxia and hypercapnia: Plan: Acute on Chronic hypoxemic/hypercapnic respiratory failure secondary to acute on chronic HFpEF and lung CA, suspected PNA. Placed on BiPAP continuously and initially required ICU stay in case of need for intubation With pulm edema seen on admission chest x-ray has improved with parenteral diuresis. Chest x-ray October 21, looks better. 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 Fortunately, the oxygen requirements have decreased further, only requiring 3LNC now which is his baseline He has been trying to wear BiPAP here at [facility]-3-6 hours last night-he has a CPAP at home he just received At baseline he requires 2 L of oxygen at rest and 3 to 4 L of oxygen with exertion Sees PULM and had large spindle cell tumor in right pleura and restrictive lung disease, former smoker FOllow up with PULM after discharge (2) COPD with emphysema: Plan: >100 pack-year tobacco history. PFT 07/2023: Severe restrictive lung disease, no obstructive disease and insignificant bronchodilator response. Mild decrease in DLCO. FEV1/FVC ratio 71, FEV1 34% predicted, FVC 35% predicted Continue maintenance inhalers continue prednisone taper down (3) HTN (hypertension): Plan: BPs normal continue Toprol XL, lisinopril (4) Acute on chronic heart failure with preserved ejection fraction: Plan: Recent cardiac echo completed in May 2023 reveals normal ejection fraction with mild LVH and evidence of chronic cor pulmonale. Repeat cardiac echo reveals normal ejection fraction with resolution of findings of cor pulmonale. Improving with IV Lasix diuresis. Monitor intake and output, low sodium diet, daily weights-down 10 kg since admission Switch to po lasix 40mg daily for tomorrow FOllow BMP (5) Diabetes mellitus: Plan: Typically well controlled, last A1C 6.2% in May 2023 COntinue Sliding scale coverage. 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 Following with Oncology at [facility] and [facility] at [facility] Needs ongoing follow up with them and to further assess possible liver mass (7) Cor pulmonale: Plan: diuresis, O2 as above (8) Multifocal pneumonia: Plan: Appears to be mostly right-sided on admission chest x-ray. Improving on oral Levaquin (9) Insomnia: Plan: Trazodone ordered at bedtime but must wear CPAP with it Plan Hyperlipidemia-continue statin DVT proph-Lovenox Dispo-continued stay, improving, now agreeable to rehab referral. SHould be good for discharge tomorrow. Natasha Romeroey today Discussed care with his brother Tyrel on phone on 10/23/23 Admission and Anticipated Discharge Date Admission Date: October 17, 2023 Subjective Pt feeling tired but overall better. His brother was reached by phone and reports his brother looks the best he has seen him in months. He is moving bowels, eating, weaned down to 3LNC. He reports he wants to learn how to use his new CPAP machine and will try to wear it every night once he le aves the hospital. Tele with NSR rates 80-90s Physical Exam Constitutional: WD/WN, vitals as above Respiratory: normal respiratory effort; no cough Auscultation: + diminished lung sounds (at right base); no crackles and no wheezes Cardiovascular: Rate/Rhythm: regular rate and regular rhythm Heart Sounds: no murmur Extremities: + edema (trace in legs bilat) Skin: chronic venous stasis changes legs bilat, trace edema Genitourinary: Gladys in place Results & Data Results & Data Vital Signs (Past 12 Hours) Vital Signs Temp Pulse Pulse Resp BP Pulse Ox O2 Del Method 10/23/23 14:15 90 10/23/23 11:09 36.5 C 77 21 107/59 L 90 Nasal Cannula 10/23/23 07:26 71 22 92 Nasal Cannula 10/23/23 07:00 High Flow Nasal Cannula 10/23/23 07:00 67 10/23/23 06:59 36.6 C 70 18 111/64 90 Nasal Cannula 10/23/23 03:44 36.7 C 85 18 118/67 91 Nasal Cannula O2 Flow Rate 10/23/23 14:15 3 10/23/23 11:09 3 10/23/23 07:26 3 10/23/23 07:00 3 10/23/23 07:00 10/23/23 06:59 3 10/23/23 03:44 4 Laboratory Results CBC, BMP, blood cxs reviewed PG Care Time/CCT Total # of Minutes Spent Total Time Spent with Patient: Total time spent is greater than 50% in coordination of care (as documented) at patient's floor/unit and/or counseling patient: Coding Level of Care Code 59251 SUB INP/OBS CARE 350MIN Diagnoses Chronic respiratory failure with hypoxia and hypercapnia J96.11; J96.12 COPD with emphysema J43.9 HTN (hypertension) I10 Acute on chronic heart failure with preserved ejection fraction I50.33 Diabetes mellitus E11.9 Solitary fibrous neoplasm D49.2 Cor pulmonale I27.81 Multifocal pneumonia J18.9 Insomnia G47.00
[2023-10-24 06:17] LABS: Basophils # (auto) 0.01 K/uL (0.00-0.20); Basophils % (auto) 0.1 %; Eosinophils # (auto) 0.17 K/uL (0.00-0.50); Eosinophils % (auto) 1.1 %; Hematocrit (blood only) 36.5 % (42.0-52.0); Hemoglobin 11.2 g/dl (14.0-18.0); Immature Granulocytes # (auto) 0.09 K/uL (0.01-0.20); Immature Granulocytes % (auto) 0.6 %; Lymphocytes # (auto) 3.14 K/uL (1.20-3.40); Lymphocytes % (auto) 20.4 %; Mean Corpuscular Hemoglobin 27.1 pg (25.0-34.0); Mean Corpuscular Hgb Conc 30.7 g/dL (32.0-36.0); Mean Corpuscular Volume 88.4 fL (80.0-100.0); Mean Platelet Volume 12.4 fL (9.4-12.4); Monocytes # (auto) 1.38 K/uL (0.11-0.59); Neutrophils % (auto) 68.8 %; Platelet Count 226 K/uL (130-400); RDW Coefficient of Variation 14.7 % (11.5-14.5); RDW Standard Deviation 47.3 fL (36.4-46.3); Red Blood Count 4.13 M/uL (4.70-6.10); White Blood Count 15.39 K/ul (4.8-10.8)
[2023-10-24 06:22] LABS: BUN Creatinine Ratio 27.9 (10-20); Creatinine Clr Calc Pharmacy 73.3 ml/min; Est GFR (African American) 70.2 ml/min; Est GFR (Non-African American) 60.5 ml/min; Potassium 3.4 mmol/L (3.5-5.1)
[2023-10-24 07:35] LABS: Estimated Average Glucose 114 mg/dl; Hemoglobin A1C 5.6 % (4.5-5.6)
[2023-10-24] MEDS: FUROSEMIDE 40 MG TAB PO SCH (08:38)
[2023-10-24] MEDS: POTASSIUM CHLORIDE CRTAB 20 MEQ TABCR PO STA (11:27)
[2023-10-24] MEDS: TAMSULOSIN HCL 0.4 MG CAP PO ONE (14:28)
--- NOTE | 2023-10-24 14:33 | Hospitalist Progress Note ---
Date of Service October 24, 2023 Assessment & Plan (1) Chronic respiratory failure with hypoxia and hypercapnia: Plan: Acute on Chronic hypoxemic/hypercapnic respiratory failure secondary to acute on chronic HFpEF and lung CA, suspected PNA. Placed on BiPAP continuously and initially required ICU stay in case of need for intubation which was not required With pulm edema seen on admission chest x-ray has improved with parenteral diuresis. Chest x-ray October 21, looks better. Continue Lasix diuresis but changed to po as BUN/Sweatband Perforator rising. Fortunately, the oxygen requirements have decreased further, only requiring 3LNC now which is his baseline He has been trying to wear his home CPAP here (which is newly acquired) at nighttime-up to 4 hrs last night At baseline he requires 2 L of oxygen at rest and 3 to 4 L of oxygen with exertion Sees PULM and has a large spindle cell tumor in right pleura and restrictive lung disease, former smoker FOllow up with PULM after discharge (2) COPD with emphysema: Plan: >100 pack-year tobacco history. PFT 07/2023: Severe restrictive lung disease, no obstructive disease and insignificant bronchodilator response. Mild decrease in DLCO. FEV1/FVC ratio 71, FEV1 34% predicted, FVC 35% predicted Continue maintenance inhalers continue prednisone taper down (3) HTN (hypertension): Plan: BPs normal continue Toprol XL, lisinopril (4) Urinary retention: Plan: Graham removed 10/22 and needed straight cath x 2 since then Starte Flomax continue to bladder scan for PVRs and straight cath as needed for PVR>400mL May need to place Graham again in continues (5) Acute on chronic heart failure with preserved ejection fraction: Plan: Recent cardiac echo completed in May 2023 reveals normal ejection fraction with mild LVH and evidence of chronic cor pulmonale. Repeat cardiac echo reveals normal ejection fraction with resolution of findings of cor pulmonale. Improving with Lasix diuresis. Monitor intake and output, low sodium diet, daily weights-down 10 kg since admission COntinue po lasix 40mg daily, replace KCl po for hypokalemia FOllow BMP, mag no arrhythmias on tele (6) Diabetes mellitus: Plan: Typically well controlled, last A1C 6.2% in May 2023 COntinue Sliding scale coverage. 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 Following with Oncology at [facility] [place] and [facility] at [facility] Needs ongoing follow up with them and to further assess possible liver mass (8) Cor pulmonale: Plan: diuresis, O2 as above (9) Multifocal pneumonia: Plan: Appears to be mostly right-sided on admission chest x-ray. Improving on oral Levaquin-finish out 7 day course (10) Insomnia: Plan: Trazodone ordered at bedtime but must wear CPAP with it Plan Hyperlipidemia-continue statin DVT proph-Lovenox Dispo-medically stable for discharge but awaiting insurance auth for [facility] Discussed care with his brother Tyrel on phone on 10/23/23 Admission and Anticipated Discharge Date Admission Date: October 17, 2023 Subjective Pt feeling well, was able to wear the CPAP for a little over 4 hours last night. Was out of bed to chair all day today. Is having issues with urinary retention since removing Graham-straight cathed x 2 so far. Tele w/ NSR, PVCs, rates 70-90s Physical Exam Constitutional: WD/WN, vitals as above Respiratory: normal respiratory effort; no cough Auscultation: + diminished lung sounds (at right base); no crackles and no wheezes Cardiovascular: Rate/Rhythm: regular rate and regular rhythm Heart Sounds: no murmur Extremities: + edema (trace in legs bilat) Gastrointestinal (Abdomen): normal bowel sounds, soft, nontender, no hepatosplenomegaly Results & Data Results & Data Vital Signs (Past 12 Hours) Vital Signs Temp Pulse Pulse Resp BP Pulse Ox O2 Del Method 10/24/23 11:14 36.7 C 77 18 99/56 L 88 L High Flow Nasal Cannula 10/24/23 09:45 93 10/24/23 09:26 Nasal Cannula 10/24/23 07:32 36.8 C 85 19 116/65 88 L High Flow Nasal Cannula 10/24/23 07:05 74 92 Nasal Cannula 10/24/23 07:00 101 H 10/24/23 04:34 Nasal Cannula 10/24/23 02:53 36.9 C 72 18 108/65 91 Nasal Cannula O2 Flow Rate 10/24/23 11:14 10/24/23 09:45 10/24/23 09:26 05/21/24 07:32 10/24/23 07:05 3.5 10/24/23 07:00 10/24/23 04:34 3 10/24/23 02:53 3 Laboratory Results CBC, BMP, magnesium, HgbA1C reviewed PG Care Time/CCT Total # of Minutes Spent Total Time Spent with Patient: Total time spent is greater than 50% in coordination of care (as documented) at patient's floor/unit and/or counseling patient: Coding Level of Care Code 07882 SUB INP/OBS CARE 2/35MIN Diagnoses Chronic respiratory failure with hypoxia and hypercapnia J96.11; J96.12 COPD with emphysema J43.9 HTN (hypertension) I10 Urinary retention R33.9 Acute on chronic heart failure with preserved ejection fraction I50.33 Diabetes mellitus E11.9 Solitary fibrous neoplasm D49.2 Cor pulmonale I27.81 Multifocal pneumonia J18.9 Insomnia G47.00
[2023-10-25 06:47] LABS: BUN Creatinine Ratio 27.7 (10-20); Calcium 9.1 mg/dl (8.6-10.3); Est GFR (African American) 72.3 ml/min; Est GFR (Non-African American) 62.4 ml/min; Potassium 3.9 mmol/L (3.5-5.1)
[2023-10-25] MEDS: predniSONE 10 MG TABLET PO SCH (08:33)
--- NOTE | 2023-10-25 15:26 | Hospitalist Progress Note ---
Date of Service October 25, 2023 Assessment & Plan (1) Chronic respiratory failure with hypoxia and hypercapnia: Plan: Acute on Chronic hypoxemic/hypercapnic respiratory failure secondary to acute on chronic HFpEF and lung CA, suspected PNA. Placed on BiPAP continuously and initially required ICU stay in case of need for intubation which was not required With pulm edema seen on admission chest x-ray has improved with parenteral diuresis. Chest x-ray October 21, looks better. Now back to baseline O2 requirement, much improved Changed IV Lasix to po after BUN/Perfume Maker rising He has been trying to wear his home CPAP here (which is newly acquired) at nighttime-up to 4 hrs at a time At baseline he requires 2 L of oxygen at rest and 3 to 4 L of oxygen with exertion Sees PULM and has a large spindle cell tumor in right pleura and restrictive lung disease, former smoker FOllow up with PULM after discharge (2) COPD with emphysema: Plan: >100 pack-year tobacco history. PFT 07/2023: Severe restrictive lung disease, no obstructive disease and insignificant bronchodilator response. Mild decrease in DLCO. FEV1/FVC ratio 71, FEV1 34% predicted, FVC 35% predicted Continue maintenance inhalers continue prednisone taper down (3) HTN (hypertension): Plan: BPs normal continue Toprol XL, lisinopril, lasix (4) Urinary retention: Plan: Graham removed 10/22 and needed straight cath x 2 since then , then Graham placed for 1800mL urine on 10/24 Started Flomax Should have trial of void in 1 week with Urology or at rehab (5) Acute on chronic heart failure with preserved ejection fraction: Plan: Recent cardiac echo completed in May 2023 reveals normal ejection fraction with mild LVH and evidence of chronic cor pulmonale. Repeat cardiac echo reveals normal ejection fraction with resolution of findings of cor pulmonale. Improving with Lasix diuresis. Monitor intake and output, low sodium diet, daily weights-down 10 kg since admission COntinue po lasix 40mg daily, replace KCl po for hypokalemia FOllow BMP, mag no arrhythmias on tele-can downgrade off tele (6) Diabetes mellitus: Plan: Typically well controlled, last A1C 6.2% in May 2023 COntinue Sliding scale coverage. 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 Following with Oncology at [facility] and [facility] at [facility] Needs ongoing follow up with them and to further assess possible liver mass (8) Cor pulmonale: Plan: diuresis, O2 as above (9) Multifocal pneumonia: Plan: Appears to be mostly right-sided on admission chest x-ray. Improving on oral Levaquin-finish out 10 day course (10) Insomnia: Plan: Trazodone ordered at bedtime but must wear CPAP with it Plan Hyperlipidemia-continue statin DVT proph-Lovenox Dispo-medically stable for discharge but awaiting insurance auth for [facility], downgrade to med/surg Discussed care with his brother Tyrel on phone on 10/23/23 Admission and Anticipated Discharge Date Admission Date: October 17, 2023 Subjective Feeling depressed about having Graham replaced. He was straight cathed twice yesterday and then was voiding through the night but no PVR performed. Then had 1800mL in bladder today-Graham placed. Otherwise is anxious for discharge. Tele with NSR rates 70-80s Physical Exam Constitutional: WD/WN, vitals as above Respiratory: normal respiratory effort; no cough Auscultation: + diminished lung sounds (at right base); no crackles and no wheezes Cardiovascular: Rate/Rhythm: regular rate and regular rhythm Heart Sounds: no murmur Extremities: + edema (trace in legs bilat) Gastrointestinal (Abdomen): normal bowel sounds, soft, nontender, no hepatosplenomegaly Genitourinary: Graham in place draining yellow clear urine Results & Data Results & Data Vital Signs (Past 12 Hours) Vital Signs Temp Pulse Resp BP Pulse Ox O2 Del Method O2 Flow Rate 10/25/23 11:21 36.9 C 76 18 108/64 91 Nasal Cannula 3 10/25/23 07:51 37.0 C 76 20 123/69 95 Nebulizer 10/25/23 07:26 High Flow Nasal Cannula 3 10/25/23 07:21 79 20 92 Nasal Cannula 3 10/25/23 04:17 94 6 Laboratory Results BMP, magnesium reviewed PG Care Time/CCT Total # of Minutes Spent Total Time Spent with Patient: Total time spent is greater than 50% in coordination of care (as documented) at patient's floor/unit and/or counseling patient: Coding Level of Care Code 40567 SUB INP/OBS CARE 2/35MIN Diagnoses Chronic respiratory failure with hypoxia and hypercapnia J96.11; J96.12 COPD with emphysema J43.9 HTN (hypertension) I10 Urinary retention R33.9 Acute on chronic heart failure with preserved ejection fraction I50.33 Diabetes mellitus E11.9 Solitary fibrous neoplasm D49.2 Cor pulmonale I27.81 Multifocal pneumonia J18.9 Insomnia G47.00
[2023-10-25] MEDS: TAMSULOSIN HCL 0.4 MG CAP PO SCH (20:30)
[2023-10-26 07:23] LABS: Basophils # (auto) 0.02 K/uL (0.00-0.20); Basophils % (auto) 0.1 %; Eosinophils # (auto) 0.15 K/uL (0.00-0.50); Eosinophils % (auto) 0.9 %; Hemoglobin 11.1 g/dl (14.0-18.0); Immature Granulocytes # (auto) 0.09 K/uL (0.01-0.20); Immature Granulocytes % (auto) 0.6 %; Lymphocytes # (auto) 3.37 K/uL (1.20-3.40); Lymphocytes % (auto) 21.2 %; Mean Corpuscular Hemoglobin 26.7 pg (25.0-34.0); Mean Corpuscular Volume 88.9 fL (80.0-100.0); Mean Platelet Volume 12.4 fL (9.4-12.4); Monocytes # (auto) 1.34 K/uL (0.11-0.59); Monocytes % (auto) 8.4 %; Neutrophils # (auto) 10.96 K/uL (1.40-6.50); Neutrophils % (auto) 68.8 %; Platelet Count 224 K/uL (130-400); RDW Coefficient of Variation 14.8 % (11.5-14.5); RDW Standard Deviation 48.1 fL (36.4-46.3); Red Blood Count 4.16 M/uL (4.70-6.10); White Blood Count 15.93 K/ul (4.8-10.8)
[2023-10-26 07:49] LABS: BUN Creatinine Ratio 26.3 (10-20); Calcium 9.1 mg/dl (8.6-10.3); Creatinine Clr Calc Pharmacy 78.9 ml/min; Est GFR (African American) 76.2 ml/min; Est GFR (Non-African American) 65.7 ml/min; Potassium 3.5 mmol/L (3.5-5.1)
--- NOTE | 2023-10-26 14:07 | Discharge Summary ---
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 History is not available from patient due to mental status. Per family patient has a history of oxygen dependence, over [id number] history of tobacco use, has lung cancer for which she is not a surgical candidate, and has sleep apnea intolerant of CPAP. Reports that he was initially talking this morning although was short of breath and was complaining of back pain. After a fall EMS was contacted however he was found to be hypoxic in the field and was transported to the ER on nonrebreather. Family notes that he is oxygen dependent but often does not wear this. Since arrival he had deterioration of his mental status and is obtunded at time of admitting hospitalist assessment Goals of Care Planning: - Discussed goals of care. Patient has an oldest son (FLORENCIA) [phone] who has been called x2 and a voicemail. He does not have another son Dawit with who he is estranged who he has not spoken to in over 3 years and who did not take his name/has a different last name andno phone numbers are available for this son per his younger brother. In the event that his son FLORENCIA is not available, does not wish to be involved in decision-making, his next surrogate decision maker would be his siblings. His brother Tyrel is with him at the bedside, and his sister has been contacted and will attempt to come to the hospital to participate in decision-making. At time of admission his brother Tyrel is able to best advocate for what Dawit would or would not have wanted. He notes that Dawit was a cano, generally independent and while he was compliant with his medications had not wanted aggressive interventions and was not tolerant of CPAP. Dawit would not want intubation or CPR or any cardiopulmonary arrest. 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 He has been on chronic oxygen both during the day and at night, which also can worsen evening hypercapnia and patient had concurrent sleep apnea but did not tolerate CPAP. G ood rate attempts have been made by phone to his oldest son FLORENCIA and sister, and attempts to obtain a phone number to his estranged son have failed as this son (Dawit) did no take Mr. Perdomo's name, has been estranged for >30 years and no phone number is available from family. on shared decision making with patient's brother who is his closest available surrogate decision maker in case that Dawit would want to be made DNR/DNI at this time, and would like to continue current medical treatments including BiPAP, antibiotics, and diuresis without further escalation of care. Patient is acutely bicytopenic. He has been crossmatched however family would like to defer blood transfusion at this time is nontender mention he would have wanted in his current situation. Continue serial labs including VBG and have a family meeting at 2:00 to reassess patient's progression. THis will allow time to evaluate response to Abx adn BIPAP; and also gives several hours for the family members notified to call back/arrive and to contribute to decision making Medical History: Reviewed Medications: Reviewed Surgical History: Reviewed Family history: Reviewed Allergies: Reviewed Social History: Reviewed Code Status: DNR/DNI Principal Dx & Hospital Course #1 = Principal Diagnosis (1) Chronic respiratory failure with hypoxia and hypercapnia: Acute on Chronic hypoxemic/hypercapnic respiratory failure secondary to acute on chronic HFpEF and lung CA, suspected PNA. Placed on BiPAP continuously and initially required ICU stay in case of need for intubation which was not required With pulm edema seen on admission chest x-ray has improved with parenteral diuresis. Chest x-ray October 21, looks better. 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 PFT 07/2023: Severe restrictive lung disease, no obstructive disease and insignificant bronchodilator response. Mild decrease in DLCO. FEV1/FVC ratio 71, FEV1 34% predicted, FVC 35% predicted Continue maintenance inhalers continue prednisone taper down (3) HTN (hypertension): BPs normal continue Toprol XL, lisinopril, lasix (4) Urinary retention: Graham removed 10/22 and needed straight cath x 2 since then , then Graham placed for 1800mL urine on 10/24 Started Flomax Should have trial of void in 1 week with Urology or at rehab (5) Acute on chronic heart failure with preserved ejection fraction: Recent cardiac echo completed in May 2023 reveals normal ejection fraction with mild LVH and evidence of chronic cor pulmonale. Repeat cardiac echo reveals normal ejection fraction with resolution of findings of cor pulmonale. Improving with Lasix diuresis. Monitor intake and output, low sodium diet, daily weights-down 10 kg since admission COntinue po lasix 40mg daily, replace KCl po for hypokalemia as needed FOllow BMP, mag no arrhythmias on tele (6) Diabetes mellitus: Typically well controlled, last A1C 6.2% in May 2023 Received Sliding scale coverage. 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 Following with Oncology at [place] and Thoracic Surgery at [place] Needs ongoing follow up with them and to further assess possible liver mass (8) Cor pulmonale: diuresis, O2 as above (9) Multifocal pneumonia: Appears to be mostly right-sided on admission chest x-ray. Improving on oral Levaquin-finish out 10 day course on 10/27/23 Should have repeat chest imaging periodically anyway for tumor Plan Hyperlipidemia-continue statin DVT proph-Lovenox Dispo-medically stable for discharge to [facility], performed peer to peer with his insurance and overturned denial Discussed care with his brother Tyrel on phone on 10/23/23 Discharge Exam Constitutional WD/WN, vitals as above Respiratory normal respiratory effort; no cough Auscultation: + diminished lung sounds (at right base); no crackles and no wheezes Cardiovascular Rate/Rhythm: regular rate and regular rhythm Heart Sounds: no murmur Extremities: + edema (trace in legs bilat) Gastrointestinal (Abdomen) normal bowel sounds, soft, nontender, no hepatosplenomegaly Genitourinary Graham with clear yellow urine Updated Medication List Medication Instructions Recorded Confirmed Type ascorbate calcium (vitamin C) 500 500 mg PO DAILY 05/17/23 10/17/23 History mg tablet cranberry 400 mg capsule 400 mg PO DAILY 05/17/23 10/17/23 History garlic 1,000 mg capsule 1,000 mg PO DAILY 05/17/23 10/17/23 History hydrochlorothiazide 25 mg tablet 25 mg PO QDAY 05/17/23 10/17/23 History lisinopril 10 mg tablet 10 mg PO DAILY 05/17/23 10/17/23 History metoprolol succinate 25 mg 25 mg PO DAILY 05/17/23 10/17/23 History tablet,extended release 24 hr saw palmetto 500 mg capsule 500 mg PO BID 05/17/23 10/17/23 History turmeric 100 mg-diomedes 150 1 cap PO UD 05/17/23 10/17/23 History mg-olive 50 mg-oreg 150 mg-capryl capsule budesonide 160 mcg-glycopyr 9 2 inh inhalation BID #10.7 grams 05/18/23 10/17/23 Rx mcg-formot 4.8 mcg/actuation HFA inhaler (Breztri Aerosphere) ipratropium 0.5 mg-albuterol 3 mg 3 ml inhalation Q8H PRN shortness 05/18/23 10/17/23 Rx (2.5 mg base)/3 mL nebulization of breath or wheezing #180 mL soln zolpidem 5 mg tablet 5 mg PO ONCE PRN sleep #2 tabs 08/18/23 10/17/23 Rx Auto Titrating CPAP #1 ea 08/31/23 10/12/23 Rx CPAP Supplies #1 ea 08/31/23 10/12/23 Rx metformin 500 mg tablet,extended 500 mg PO QAM 10/17/23 10/17/23 History release 24 hr rosuvastatin 20 mg tablet 20 mg PO QAM 10/17/23 10/17/23 History furosemide 40 mg tablet 40 mg PO QAM #30 tabs 10/26/23 Rx guaifenesin 600 mg tablet, 600 mg PO Q12 #60 tabs 10/26/23 Rx extended release 12 hr (Mucinex) levofloxacin 750 mg tablet 750 mg PO QAM #1 tab 10/26/23 Rx prednisone 10 mg tablet 30 mg (3 x 10 mg) PO DAILY #9 tabs 10/26/23 Rx tamsulosin 0.4 mg capsule 0.4 mg PO HS #30 caps 10/26/23 Rx Hospital Stay Data Consultations 10/17/23 09:18 Consult Band Saw Operator Stat 10/17/23 10:07 ED Decision to Admit Stat 10/17/23 13:11 Consult Band Saw Operator Routine 10/18/23 05:55 Consult Patient Rep [Consult Patient Services] Routine Diagnostic Imagining Performed 10/17/23 08:09 CT cervical spine wo con Stat CT head/brain wo con Stat CT lumbar spine wo con Stat CT thoracic spine wo con Stat 10/18/23 09:59 CT chest diagnostic w con Routine Pending Results Patient Have Any Pending Studies at Discharge: No Discharge Instructions Given to Patient (Per Discharging Provider) You were admitted with respiratory failure after having a fall and were treated for pneumonia and for a COPD exacerbation. You will need one more day of oral antibiotics for your pneumonia, and are finishing out a course of prednisone for your COPD. You were overloaded with fluid and given diuretics to get extra fluid off of your lungs. You will continue on lasix for this to replace your home HCTZ water pill. You had difficulty urinating/emptying your bladder after your Graham catheter was removed and had to have it replaced. You were started on a medication called F stevie to help with this and you will need a trial of void with removal of Graham catheter in about one week at the rehab. If you are still retaining urine, you will need to see a Urologist. Total Time Total Time Spent Total Time Spent (In Minutes): 45 min Total Time Includes: Examination of the Patient, Discharge Planning and Medication Reconciliation Coding Level of Care Code 05425 INP/OBS DISCH >30 MIN Diagnoses Chronic respiratory failure with hypoxia and hypercapnia J96.11; J96.12 COPD with emphysema J43.9 HTN (hypertension) I10 Urinary retention R33.9 Acute on chronic heart failure with preserved ejection fraction I50.33 Diabetes mellitus E11.9 Solitary fibrous neoplasm D49.2 Cor pulmonale I27.81 Multifocal pneumonia J18.9
[2023-10-28] MEDS ORDERED: predniSONE 20 MG TAB PO SCH (09:00)
[2023-10-31] MEDS ORDERED: predniSONE 10 MG TABLET PO SCH (09:00)
[2023-11-03] MEDS ORDERED: predniSONE 5 MG TAB PO SCH (09:00)
== END 2023-10-26 18:02 | DRG 193 ==
LOC: EDBD → ED 07:50 → MERGE 07:50 → SUATTDRO 10:35 → 1E 10:35 → 2E 10-20 22:10 → 3W 10-25 18:25

== ENCOUNTER 2024-02-05 13:36 | Inpatient (IN) ==
--- OUTSIDE RECORDS SUMMARY | 2024-02-05 13:44 | External Medical Summary | Summary of Care ---
Author Name Unknown Organization [facility] Address [address] [place] [address] Phone [phone] Care Team Providers Care Lion Hunter Name Role Phone Unavailable Primary Care Provider Unavailabl e Reason for Visit * Reason Comments eRx-Medication Refill Encounter Details Date Type Department Care Team (Late st Contact Info) Description 01/25/2024 Refill [facility] [address] [place] [address] Mj Arce, [address] [place] [id number] Allergies Active Allergy Reactions Criticality Noted Date Comments Metformin Other (Please comment) 02/23/2023 GI intolerance documented as of this encounter (statuses as of 01/26/2024) Medications Medication Sig Dispensed Refills Start Date [...] 1 Each 5 08/19/2022 Active Dexcom G7 Thermoplastic Technician DeviceIndications:Typ e 2 diabetes mellitus with hemoglobin A1c goal of less than 7.0% (HCC) Use as directed E119 1 Each 08/19/2022 Active OneTouch Verio In Vitro Strip [...] 4 times a day E11.9 1 Kit 09/01/2022 Active ViroblockTouch UltraSoft LancetsIndications:Ty pe 2 diabetes mellitus with [...] Wheezing. 6.7 g 3 10/07/2022 Active Saw [place] 1000 MG Oral Capsule Take by mouth daily. Active Vitamin C 500 MG Oral Capsule Take by mouth daily. Active Garlic 100 MG Oral Tablet Take 1 Tablet by mouth in the morning. Active Turmeric 500 MG Oral Capsule Take 1 Capsule by mouth in the morning. Active Cranberry 1000 MG Oral Capsule Take 1,000 mg by mouth in the morning. Active Budesonide-Formoterol Fumarate 80-4.5 MCG/ACT Inhalation Aerosol (Symbicort) Inhale 2 Puffs by mouth in the morning and 2 Puffs before bedtime. 10.2 g 12 11/25/2022 Active Fluticasone-Salmetero l 115-21 MCG/ACT Inhalation Aerosol (Advair HFA) Inhale 2 Puffs by mouth in the morning and 2 Puffs before bedtime. 12 g 12 01/05/2023 Active Metoprolol Succinate ER 25 MG Oral [...] start before March 25, 2023. 30 Tablet 03/25/2023 Active Semaglutide 14 MG Oral Tablet [...] Tablet in the evening. Take with meals. Active hydroCHLOROthiazide 25 MG Oral Tablet (Hydrodiuril) TAKE 1 TABLET BY MOUTH EVERY DAY IN THE MORNING 30 Tablet 01/01/2024 Active documented as of this encounter (statuses as of 01/26/2024) Active Problems Problem Noted Date Diagnosed Date [...] as of this encounter (statuses as of 01/26/2024) Resolved Problems Problem Noted Date Diagnosed Date Resolved Date Body mass index (BMI) of 40. 0 to 44.9 in adult 01/16/2023 03/16/2023 Overview: Per Obesity protocol Class 3 severe obesity with serious comorbidity in adult 07/29/2022 01/19/2023 Overview: Per Obesity protocol documented as of this encounter (statuses as of 01/26/2024) Immunizations No known immunizationsdocumented as of this encounter Social History Tobacco Use Types Packs/Day Years Used Date Smoking Tobacco: Former Cigarettes 3 55.8 1 04/2022 Smokeless Tobacco: Never Alcohol Use Standard Drinks/Week Comments Not Currently 0 (1 standard drink = 0.6 oz pur e alcohol) PHQ-2 Answer Date Recorded PHQ Adult Total Score 9 07/29/2022 Hunger Vital Sign Answer Date Recorded Within the past 12 months, y ou worried that your food would run out before you got the money to buy more. Never true 07/29/19 Within the past 12 months, t he food you bought just didn't last and you didn't have money to get more. Never true 07/29/2022 Utilities Answer Date Recorded Do you have trouble paying y our heating, water, or electric bill? (Adult - for ages 18 years and over) Not on file 11/21/2023 Is your family able to pay t he heat, water, or electric bill? (Household - for ages 0-17 years) Not on file 11/21/2023 Does your family have access to good internet? (Household - for ages 0-17 years) Not on file 11/21/2023 Social Connections Answer Date Recorded How often do you feel lonely or isolated from those around you? (Adult - for ages 18 years and over) Not on file 11/21/2023 Sex and Gender Information Value Date Recorded Sex Assigned at Not on file Gender Identity Not on file Sexual Orientation Not on file Job Start Date Occupation Industry Not on file Not on file Not on file documented as of this encounter Miscellaneous Notes * Telephone Encounter - Grace Stevens [facility] - 01/26/2024 3:10 PM EDTRefused Prescriptions: Disp Refills hydroCHLOROthiazide 25 MG Oral Tablet (Hyd*30 Tab*0 Sig: TAKE 1TABLET BY MOUTH EVERY DAY IN THE MORNINGRefused By: GRACE STEVENS for Refusal: Managed by another physician documented in this encounter Plan of Treatment [...] 2022- season) 2023 Depression Screening 07/29/2023 07/29/2022 Influenza Vaccine (FLU shot) (#1) 2024 GFR 11/02/2024 11/03/2023, 05/12/2023, 10/27/2023, Additional history exists Diabetes Screening 11/02/2026 11/03/2023, 0 10/30/2023, 10/27/2023, Additional history exists Lung Cancer Screening Completed 09/13/2022 HPV (Gardasil) Vaccine Aged Out No lo nger eligible based on patient's age to complete this topic Hepatitis B Vaccine Aged Out No longe r eligible based on patient's age to complete this topic MENINGOCOCCAL (MENACTRA/MENVEO) Aged Out No longer eligible based on patient's age to complete this topic documented as of this encounter Medical Devices Not on filedocumented as of this encounter
--- OUTSIDE RECORDS SUMMARY | 2024-02-05 13:44 | External Medical Summary | Continuity of Care Document ---
Author Name Unknown Organization [facility] [id number] [address] [place] [phone] Care Team Providers Care Medical Massage Therapist Name Role Phone Stephen Harsha Primary Care Physician [phone] Encounter [facility] [id number] Date(s): 01/16/24 - 01/16/24 [facility] [address] [facility] [address] [facility] [address] [place] [phone] Encounter Diagnosis Chronic obstructive pulmonary disease(Discharge Diagnosis) - 12/05/23 History of smoking greater than 50 pack years(Discharge Diagnosis) - 12/05/23 Diabetes(Discharge Diagnosis) - 12/05/23 Hyperlipemia(Discharge Diagnosis) - 12/05/23 Lung mass(Discharge Diagnosis) - 01/16/24 Sleep apnea(Discharge Diagnosis) - 01/16/24 HTN (hypertension)(Discharge Diagnosis) - 01/16/24 Discharge Disposition: Home or Self Care Attending Physician: DO Jasmine Franklin J Allergies, Adverse Reactions, Alerts No Known Medication Allergies Substance Criticality Severity Reaction Reaction Severity Status Hay Itchy eyes and sneezing Active Allergy Not found in Search Poison MAGUE Active Medications Accu-Chek Guide Me Meter Start: 12/12/23 1:32:00 PM EDT, See Instructions, Disp# 1 each, Refills: 0, dispense as written, Noteto Pharmacy: Dispense as wrtitten, Pharmacy: [facility] #[id number] Start Date: 12/12/23 Status: Ordered Accu-Chek Guide Test Strips Start: 01/01/24 4:25:00 PM EDT, See Instructions, Disp# 100 each, Refills: 3, check blood glucose once per day and as needed for concerns of hypo or hyperglycemia, Pharmacy: [id number] Start Date: 01/01/24 Status: Ordered Accu-Chek Softclix (28G) Lancets Start: 12/12/23 1:32:00 PM EDT, See Instructions, Disp# 100 each, check blood glucose 3x per day and as needed for concerns of hypo or hyperglycemia, Pharmacy: [facility]/pharmacy #[id number] Start Date: 12/12/23 Status: Ordered albuterol-ipratropium 2.5 mg-0.5 mg/3 mL inhalation solution INHALE 3 ML VIA NEBULIZER EVERY 8 HOURS NEEDED FOR SHORTNESS OF BREATH OR WHEEZING Start Date: 11/10/23 Status: Ordered Breztri Aerosphere 160 mcg-9 mcg-4.8 mcg/inh inhalation aerosol INHALE 2 PUFFS ORALLY INHALED TWICE A DAY Start Date: 11/10/23 Status: Ordered Colace 100 mg oral capsule Start: 12/12/23 1:29:00 PM EDT, 1 cap, PO, Daily, Disp# 60 cap, Refills: 1, PRN: as needed for constipation, Pharmacy: [facility]/pharmacy #[id number] Start Date: 12/12/23 Status: Ordered Cranberry Start: 01/31/23 2:49:00 PM EDT, PO, Daily Start Date: 01/31/23 Status: Ordered Flomax 0.4 mg oral capsule Start: 12/05/23 10:03:00 AM EDT, 1 cap, PO, Daily, Disp# 90 cap, Refills: 1, Pharmacy: [facility]/pharmacy #[id number] Start Date: 12/05/23 Stop Date: 06/02/24 Status: Ordered Garlic Start: 01/31/23 2:48:00 PM EDT, PO, Daily Start Date: 01/31/23 Status: Ordered Lasix 40 mg oral tablet Start: 12/05/23 9:58:00 AM EDT, 1 tab, PO, Daily, Disp# 30 tab, Refills: 3, Pharmacy: [facility]/pharmacy #[id number] Start Date: 12/05/23 Stop Date: 04/03/24 Status: Ordered lisinopril 10 mg oral tablet Start: 12/26/23 11:46:00 AM EDT, 1 tab, PO, Daily, Disp# 90 tab, Refills: 1, Pharmacy: [facility]/pharmacy #[id number] Start Date: 12/26/23 Stop Date: 06/23/24 Status: Ordered MetFORMIN (Eqv-Glucophage XR) 500 mg oral tablet, extended release Start: 12/05/23 9:59:00 AM EDT, 1 tab, PO, Daily, Disp# 90 tab, Refills: 1, Pharmacy: [facility]/pharmacy #[id number] Start Date: 12/05/23 Stop Date: 06/02/24 Status: Ordered metoprolol succinate 25 mg oral tablet, extended release Start: 12/05/23 10:02:00 AM EDT, 1 tab, PO, Daily, Disp# 90 tab, Refills: 1, Pharmacy: [facility]/pharmacy #[id number] Start Date: 12/05/23 Stop Date: 06/02/24 Status: Ordered Mucinex 600 mg oral tablet, extended release Start: 12/05/23 10:04:00 AM EDT, 1 tab, PO, q12h, Disp# 60 tab, Refills: 1, [id number] Start Date: 12/05/23 Stop Date: 02/03/24 Status: Ordered nitrofurantoin macrocrystals-monohydrate 100 mg oral capsule Start: 12/21/23 1:31:00 PM EDT, 1 cap, PO, bid Start Date: 12/21/23 Status: Ordered rosuvastatin 10 mg oral tablet Start: 12/21/23 2:12:00 PM EDT, 1 tab, PO, Daily, Disp# 90 tab, Refills: 3, [id number] Start Date: 12/21/23 Stop Date: 04/19/24 Status: Ordered Saw [place] Start: 01/31/23 2:48:00 PM EDT, PO, Daily Start Date: 01/31/23 Status: Ordered stool softener Start: 12/21/23 1:32:00 PM EDT, stool softener Start Date: 12/21/23 Status: Ordered turmeric Start: 01/31/23 2:48:00 PM EDT, PO, Daily Start Date: 01/31/23 Status: Ordered Vitamin C Start: 01/31/23 2:48:00 PM EDT, PO, Daily Start Date: 01/31/23 Status: Ordered Mental Status 01/16/24 Barriers to Learning one year None evide nt Mandatory Health Literacy Documentation Yes Health Literacy Communication Barriers N ever Primary Language [place] Problem List Condition Confirmation Course Effective Dates Status Health St atus Informant Chronic obstructive pulmonary disease Confirmed Active Diabetes Confirmed Active Lower extremity edema Confirmed Active HLD (hyperlipidemia) Confirmed Active HTN (hypertension) Confirmed Active Lung mass Confirmed Active Sleep apnea Confirmed Active History of smoking greater than 50 pack years Confirmed Active Diagnosis Diagnosis Type Effective Dates Health Status Clinical Service Informant Sleep apnea Discharge Diagnosis 01/16/24 Non-Specified Lung mass Discharge Diagnosis 01/16/24 Non-Specified HTN (hypertension) Discharge Diagnosis 01/16/24 Non-Specified Chronic obstructive pulmonary disease Discharge Diagnosis 12/05/23 Non-Specified Diabetes Discharge Diagnosis 12/05/23 Non-Specified History of smoking greater than 50 pack years Discharge Diagnosis 12/05/23 Non-Specified Hyperlipemia Discharge Diagnosis 12/05/23 Non-Specified Vital Signs Most recent to oldest [Reference Range]: 1 Heart Rate 109 bpm (01/16/24 2:02 PM) Respiratory Rate 26 br/min (01/16/24 2:02 PM) Blood Pressure 118/64mmHg (01/16/24 2:02 PM) Cuff Pulse Pressure 54 mmHg (01/16/24 2:02 PM) Social History Social History Type Response Smoking Status Never smoked cigaret marielena Sex Male Sex Representation Male (finding) Patient Care team information Care Team Personnel Name: DO Linn Amanda Position: Resident Member Role: Lifetime Relationship [address]: [address] [place] [address] [place] Name: DO Mitchell Eric Position: Resident Member Role: Primary Care Provider Address: [address] [place] [address] Care Team Related Persons Name: JESSICA DASILVA
--- OUTSIDE RECORDS SUMMARY | 2024-02-05 13:44 | External Medical Summary | Summary of Care ---
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 Role Phone Unavailable Primary Care Provider Unavailabl e Reason for Visit * Reason Comments eRx-Medication Refill Encounter Details Date Type Department Care Team (Late st Contact Info) Description 12/31/2023 Refill [facility] [address], [place] [id number] Mj Hernandez, [address] [place] [id number] Allergies Active Allergy Reactions Criticality Noted Date Comments Metformin Other (Please comment) 02/23/2023 GI intolerance documented as of this encounter (statuses as of 01/05/2024) Medications Medication Sig Dispensed Refills Start Date End Date Status Silver sulfADIAZINE 1 % External Cream (Silvadene) Apply topically to affected area daily. 400 g 1 08/02/2022 Active Compressor NebulizerIndicatio ns:Mass of lower lobe of right lung,Shortness of breath,Hypoxemia Inhale via nebulizer. Use as directed. 1 Each 1 08/12/2022 Active Albuterol Sulfate (2.5 MG/3ML) 0.083% Inhalation Nebulization Solution (Proventil)Indicat ions:Mass of lower lobe of right lung,Shortness of breath,Hypoxemia Inhale 1 Vial via nebulizer every 4 hours as needed for Wheezing or Shortness of Breath. 300 mL 1 08/12/2022 Active Dexcom G7 SensorIndications: Type 2 diabetes mellitus with hemoglobin A1c goal of less than 7.0% (HCC) Use as directed E119 1 Each 5 08/19/2022 Active Hipvan G7 Electromatic Typist DeviceIndications: Type 2 diabetes mellitus with hemoglobin A1c goal of less than 7.0% (HCC) Use as directed E119 1 Each 08/19/2022 Active OneTouch Verio In Vitro Strip (Glucose Blood)Indications: Type 2 diabetes mellitus with hemoglobin A1c goal of less than 7.0% (HCC) Use up to 4 times daily and as needed to monitor glucose 200 Strip 2 09/01/2022 Active OneTouch Verio w/Device KitIndications:Typ e 2 diabetes mellitus with hemoglobin A1c goal of less than 7.0% (HCC) Use up to 4 times a day E11.9 1 Kit 09/01/2022 Active ServoyTouch UltraSoft LancetsIndications :Type 2 diabetes mellitus with hemoglobin A1c goal of less than 7.0% (HCC) Use as directed 4 times a day as needed (glucose monitoring). Use up to four times a day as directed 300 Each 3 09/01/2022 Active Albuterol Sulfate HFA 108 (90 Base) MCG/ACT Inhalation Aerosol SolutionIndication s:Mass of lower lobe of right lung Inhale 2 Puffs by mouth every 4 hours as needed for Wheezing. 6.7 g 3 10/07/2022 Active Saw Terrell 1000 MG Oral Capsule Take by mouth daily. Active Vitamin C 500 MG Oral Capsule Take by mouth daily. Active Garlic 100 MG Oral Tablet Take 1 Tablet by mouth in the morning. Active Turmeric 500 MG Oral Capsule Take 1 Capsule by mouth in the morning. Active Cranberry 1000 MG Oral Capsule Take 1,000 mg by mouth in the morning. Active Budesonide-Formote rol Fumarate 80-4.5 MCG/ACT Inhalation Aerosol (Symbicort) Inhale 2 Puffs by mouth in the morning and 2 Puffs before bedtime. 10.2 g 12 11/25/2022 Active Fluticasone-Salmet cortez 115-21 MCG/ACT Inhalation Aerosol (Advair HFA) Inhale 2 Puffs by mouth in the morning and 2 Puffs before bedtime. 12 g 12 01/05/2023 Active Metoprolol Succinate ER 25 MG Oral Tablet Extended Release 24 Hour (toPROL XL) Take 1 Tablet by mouth in the morning. 90 Tablet 3 01/11/2023 Active Semaglutide 7 MG Oral Tablet (Rybelsus)Indicati ons:Type 2 diabetes mellitus with hemoglobin A1c goal of less than 7.0% (HCC),Class 3 severe obesity with serious comorbidity and body mass index (BMI) of 40.0 to 44.9 in adult, unspecified obesity type (HCC) Take 7 mg by mouth daily first thing in the morning. Do not start before March 25, 2023. 30 Tablet 03/25/2023 Active Semaglutide 14 MG Oral Tablet (Rybelsus)Indicati ons:Type 2 diabetes mellitus with hemoglobin A1c goal of less than 7.0% (HCC),Class 3 severe obesity with serious comorbidity and body mass index (BMI) of 40.0 to 44.9 in adult, unspecified obesity type (HCC) Take 14 mg by mouth daily first thing in the morning. Do not start before April 25, 2023. 90 Tablet 2 04/25/2023 Active Lisinopril 10 MG Oral Tablet (Prinivil)Carl ons:Essential hypertension with goal blood pressure less than [...] in the evening. Take with meals. Active hydroCHLOROthiazid e 25 MG Oral Tablet (Hydrodiuril) TAKE 1 TABLET BY MOUTH EVERY DAY IN THE MORNING 30 Tablet 01/01/2024 Active hydroCHLOROthiazid e 25 MG Oral Tablet (Hydrodiuril) Take 1 Tablet by mouth in the morning. 90 Tablet 3 01/11/2023 4 Discontinued documented as of this encounter (statuses as of 01/05/2024) Active Problems Problem Noted Date Diagnosed Date [...] as of this encounter (statuses as of 01/05/2024) Resolved Problems Problem Noted Date Diagnosed Date Resolved Date Body mass index (BMI) of 40. 0 to 44.9 in adult 01/16/2023 03/16/2023 Overview: Per Obesity protocol Class 3 severe obesity with serious comorbidity in adult 07/29/2022 01/19/2023 Overview: Per Obesity protocol documented as of this encounter (statuses as of 01/05/2024) Immunizations No known immunizationsdocumented as of this encounter Social History Tobacco Use Types Packs/Day Years Used Date Smoking Tobacco: Former Cigarettes 3 55.8 1 7 - 04/2022 Smokeless Tobacco: Never Alcohol Use [...] encounter Miscellaneous Notes * Telephone Encounter - Peggy Marroquin - 01/05/2024 11:46 AM EDT Received message from [facility] regarding patient needing an appointment. Patient was notified. Successfully contacted patient and provided [facility] message. * Telephone Encounter - Amee Marino [facility] - 01/01/2024 2:00 PM EDTSigned Prescriptions: Disp Refills hydroCHLOROthiazide 25 MG Oral Tablet (Hyd*30 Tab*0 Sig: TAKE 1 TABLET BY MOUTH EVERY DAY IN THE MORNING Authorizing Provider: MJ HERNANDEZ Ordering User: AMEE MARINO * Telephone Encounter - Amee Marino [facility] - 01/01/2024 1:59 PM EDT Please contact patient so that an appointment can be scheduled with his PRIMARY CARE provider. Refill authorized to hold patient over in the mean time. Last Visit: 02/23/2023 (in office), 03/30/2023 (telemedicine) - overdue for f/u Next Visit: Visit date not found Thank you, Amee Marino, PharmD Clinical Pharmacist [facility] [phone] 01/01/2024, 1:59 PM documented in this encounter Plan of Treatment [...] (FLU shot) (#1) 2024 GFR 11/02/2024 11/03/2023, 10/04, 10/27/2023, Additional history exists Diabetes Screening 11/02/2026 [...]
[2024-02-05 14:01] LABS: iSTAT Blood Urea Nitrogen 29 mg/dl (7-18); iSTAT Carbon Dioxide > 40 mmol/L (24-31); iSTAT Chloride 96 mmol/L (101-112); iSTAT Glucose 99 mg/dl (70-99); iSTAT Hematocrit 32 % (42-52); iSTAT Hemoglobin 10.9 g/dl (14.0-18.0); iSTAT Ionized Calcium 1.27 mmol/l (1.12-1.32); iSTAT Potassium 4.6 mmol/L (3.3-5.0); iSTAT Sodium 144 mmol/L (135-144)
[2024-02-05 14:13] LABS: Basophils # (auto) 0.05 K/uL (0.00-0.20); Basophils % (auto) 0.4 %; Eosinophils # (auto) 0.18 K/uL (0.00-0.50); Eosinophils % (auto) 1.4 %; Hematocrit (blood only) 33.7 % (42.0-52.0); Hemoglobin 9.5 g/dl (14.0-18.0); Immature Granulocytes # (auto) 0.14 K/uL (0.01-0.20); Immature Granulocytes % (auto) 1.1 %; Lymphocytes # (auto) 2.07 K/uL (1.20-3.40); Lymphocytes % (auto) 16.6 %; Mean Corpuscular Hemoglobin 26.4 pg (25.0-34.0); Mean Corpuscular Hgb Conc 28.2 g/dL (32.0-36.0); Mean Corpuscular Volume 93.6 fL (80.0-100.0); Mean Platelet Volume 11.7 fL (9.4-12.4); Monocytes % (auto) 8.8 %; Neutrophils # (auto) 8.91 K/uL (1.40-6.50); Neutrophils % (auto) 71.7 %; Nucleated RBC # (auto) 0.02 K/uL (0.00-0.12); Nucleated RBC % (auto) 0.2 %; Platelet Count 191 K/uL (130-400); RDW Coefficient of Variation 16.6 % (11.5-14.5); RDW Standard Deviation 56.4 fL (36.4-46.3); White Blood Count 12.45 K/ul (4.8-10.8)
[2024-02-05] MEDS: ACETAMINOPHEN 1,000 MG/100 ML VIAL IV STA (14:26)
[2024-02-05] MEDS: SODIUM CHLORIDE 0.9% 1,000 ML IV ONE (14:26)
[2024-02-05 14:27] LABS: Albumin Globulin Ratio 1.1 (0.9-2); Albumin Level 4.2 gm/dl (3.4-5.0); BUN Creatinine Ratio 27.1 (10-20); Bilirubin,Total 0.3 mg/dl (0.2-1.0); Calcium 9.9 mg/dl (8.6-10.3); Creatinine Clr Calc Pharmacy 100.2 ml/min; Est GFR (Non-African American) 88.9 ml/min; Globulin 3.7 gm/dl (2.5-4.0); Magnesium 2.2 mg/dl (1.7-2.4); Potassium 4.3 mmol/L (3.5-5.1); Total Protein 7.9 gm/dl (6.0-8.3)
[2024-02-05 14:35] LABS: Troponin I High Sensitivity 11.9 pg/ml (0-20)
--- NOTE | 2024-02-05 14:36 | Emergency Department Note ---
Impression & Plan AMS (altered mental status), Acute respiratory failure with hypoxia and hypercapnia, Acute hypotension, Leukocytosis, Pulmonary edema, Acute respiratory acidosis ED Provider Note HISTORY OF PRESENT ILLNESS: Patient is a 68-year-old male presenting with altered mental status. History is obtained from sister at bedside, as the patient is too confused to supply any meaningful history. Sister reports that she does not live with the patient but checks in on him daily via phone. States that intermittently over the last 7 to 10 days the patient has been having episodes of confusion. He was visited by his hospice nurse 3 days ago and was afebrile and reportedly "having a good day." He is currently on hospice for significant COPD and lung cancer. Sister reports that she called him today and he was very confused and she went to see him and he was significantly altered, prompting her to call 911. She states that the patient is DO NOT RESUSCITATE and DO NOT INTUBATE. States that the patient wear supplemental oxygen at baseline and was found to have his oxygen tubing kinked. She denies any known fevers for the patient. ROS: as above PHYSICAL EXAM: Constitutional: Patient appears in moderate distress. HENT: Head: Normocephalic and atraumatic. Eyes: EOMI, PERRL Mouth/Throat: Mucous membranes moist. Neck: Trachea midline. Neck supple. Cardiovascular: Tachycardic with regular rhythm. No murmurs, rubs or gallops. Intact distal pulses. Pulmonary/Chest: Patient is tachypneic with intercostal retractions. Diffuse crackles bilaterally. Patient is saturating 87% on 4 L nasal cannula. Abdominal: Abdomen soft, no tenderness, rebound or guarding. Musculoskeletal: No tenderness or deformity noted. +3 pitting edema of bilateral lower extremities Skin: Warm and dry. No rash, erythema, pallor or cyanosis Neurological: Patient is nonresponsive. GCS of 3 - does not arise to verbal or physical stimulus. MDM: - Vitals signs showed hypertension, tachycardia, hypoxia and fever. On my assessment, the patient has a GCS of 3. I did discuss with the family that he would need a airway, as there is concern he is not protecting his own. However, they report that the patient has a POLST form that is on file here at the hospital that says he is DNR/DNI. They report that during his last admission they talked about intubating him and the patient is not wishing to be intubated at this time. Patient is unable to partake in the conversation for his care, given his significant decreased mental status. Family reports the patient is agreeable to noninvasive respiratory support, so BiPAP was ordered to see if patient's mental status improves with improvement in hypercarbia and with oxygenation - History obtained via patient's family, given patient's significant altered mental status. History as above. - Chronic conditions affecting care: COPD; lung cancer (on palliative care); ANANT (on CPAP) - Differential diagnoses include, but are not limited to: Congestive heart failure; acute coronary syndrome; COPD/asthma exacerbation; pulmonary edema; pulmonary embolism; pneumonia; pneumothorax; viral syndrome; hypercarbia - Order placed for continuous cardiac monitoring. At this time, monitor showed rate of 118 bpm with normal sinus rhythm, per my interpretation. - External medical records reviewed. Discharge summary dated 10/26/2023 was reviewed. Patient has a history of oxygen dependence with over 100-year pack history of tobacco use. Based on the goals of care discussion during that admission, the patient would not want intubation. Per documentation, he would continue medical treatments including BiPAP, antibiotics and diuresis without any further escalation of care. - EKG interpreted by myself showed normal sinus rhythm. Rate 111 bpm. QT 306. No acute ischemic changes. - Laboratory workup interpreted by myself showed leukocytosis (WBC 12.45); anemia (Hgb 9.5); normal PT/INR; normal lactate; elevated CO2 (42); normal troponin; normal CK; normal BNP; normal procalcitonin; normal TSH - Patient given 1L NS. - Blood cultures obtained. Empirically started on zosyn. - CXR shows moderate pulmonary edema, per my interpretation. Radiology notes patchy densities within the left midlung zone which could represent a pneumonitis. Also note small bilateral pleural effusions - VBG shows respiratory acidosis (pH 7.01; PCO2 >125) - Patient was given 40 mg IV lasix. Graham catheter inserted by nursing staff and the patient initially had 1.5 L out. However, after about 30 minutes, the patient had a total of 2.8 L out of the Graham bag and he became hypotensive to 70s over 30s. Given his pulmonary edema status, he was started on a low-dose of peripheral Levophed for blood pressure improvement. - Patient was reassessed multiple times. He is still very lethargic and a GCS of 3. He has been on the BiPAP now for 45 minutes. Will attempt to repeat a gas. - Viral respiratory panel negative - Had a prolonged discussion with family at bedside. Discussed that the patient is critically ill at this point and the next 12 to 24 hours would be the most telling for him. They are calling other family to potentially come and see the patient. - Levophed drip was paused at 1635. Repeat blood pressure 125/62. Patient's transient hypotension may have been secondary to his profound volume loss through his urine output. - Discussion was had with geriatric case manager about patient's case and need for admission - Hospitalist, Dr. Arellano, consulted for admission - [facility] and [facility]. I have personally spent 93 minutes of critical care time in the direct management of this patient. This includes bedside care, interpretation of diagnostic studies, and testing, discussion with consultants, patient, and family members, and other required patient management activities. This 93 minutes is in excess of all separately billable procedures. ASSESSMENT AND PLAN: Diagnosis: altered mental status; acute respiratory failure with hypoxia and hypercarbia; hypotension; leukocytosis; acute respiratory acidosis; pulmonary edema Plan: admit Past Med/Surg History Problem List (Updated 02/05/24 @ 16:26 by Grace Cerda MD) Acute respiratory acidosis (Acute) Pulmonary edema (Acute) Leukocytosis (Acute) Acute hypotension (Acute) Acute respiratory failure with hypoxia and hypercapnia (Acute) AMS (altered mental status) (Acute) Constipation by delayed colonic transit Physician orders for life-sustaining treatment (POLST) form indicates patient wish for tg-xgk-kjifyfubayl status Advanced care planning/counseling discussion Palliative care by specialist Dyspnea and respiratory abnormalities Abnormal chest CT ANANT (obstructive sleep apnea) BPH NOS w ur obs/LUTS Urinary retention Insomnia Spindle cell carcinoma of thorax Multifocal pneumonia Anemia (Acute) Respiratory acidosis (Acute) CHF (congestive heart failure) (Acute) Cor pulmonale Diabetes mellitus Goals of care, counseling/discussion Ex-smoker Restrictive lung disease Obesity Chronic respiratory failure with hypoxia and hypercapnia Hypersomnia Medical History HTN (hypertension) Solitary fibrous neoplasm COPD with emphysema Social History Smoking Status: Former smoker Tobacco Type: Cigarettes Age Started Using Tobacco: 11; Age Quit Using Tobacco: 66; packs per day: 3; Cigarettes Per Day: 3 PPD; Second Hand Exposure: Yes; Do You Dip or Chew Tobacco: No; Hx Alcohol Use: No Hx Substance Use: No Preferred Language: Paragu[place] Communication Ability: Effective Quality Assurance Associate Required: No Beliefs That Will Affect Care: None Current Living Situation: Alone Feels Safe at Home: Yes Assistive Devices: Cane, Oxygen - Continuous and Walker Allergies Allergies Allergy/AdvReac Type Severity Reaction Status Date / Time No Known Allergies Allergy Verified 12/12/23 15:41 Home Meds Home Medications Medication Instructions Recorded Confirmed ascorbate calcium (vitamin C) 500 500 mg PO DAILY 05/17/23 11/21/23 mg tablet cranberry 400 mg capsule 400 mg PO DAILY 05/17/23 11/21/23 garlic 1,000 mg capsule 1,000 mg PO DAILY 05/17/23 11/21/23 lisinopril 10 mg tablet 10 mg PO QAM 05/17/23 11/21/23 saw palmetto 500 mg capsule 500 mg PO BID 05/17/23 11/21/23 turmeric 100 mg-diomedes 150 1 cap PO UD 05/17/23 11/21/23 mg-olive 50 mg-oreg 150 mg-capryl capsule metformin 500 mg tablet,extended 500 mg PO QAM 10/17/23 11/21/23 release 24 hr rosuvastatin 20 mg tablet 20 mg PO QAM 10/17/23 11/21/23 hydrochlorothiazide 25 mg tablet 25 mg PO QAM 02/05/24 02/05/24 metoprolol succinate 50 mg 50 mg PO DAILY 02/05/24 02/05/24 tablet,extended release 24 hr Previous Rx's Medication Instructions Recorded Auto Titrating CPAP #1 ea 08/31/23 CPAP Supplies #1 ea 08/31/23 furosemide 40 mg tablet 40 mg PO QAM #30 tabs 10/26/23 guaifenesin 600 mg tablet, 600 mg PO Q12 #60 tabs 10/26/23 extended release 12 hr (Mucinex) prednisone 10 mg tablet 30 mg (3 x 10 mg) PO DAILY #9 tabs 10/26/23 tamsulosin 0.4 mg capsule 0.4 mg PO HS #30 caps 10/26/23 dutasteride 0.5 mg capsule 0.5 mg PO DAILY #30 caps 11/16/23 budesonide 160 mcg-glycopyr 9 2 inh inhalation BID #10.7 grams 11/22/23 mcg-formot 4.8 mcg/actuation HFA inhaler (Breztri Aerosphere) ipratropium 0.5 mg-albuterol 3 mg 3 ml inhalation Q8H PRN shortness 11/22/23 (2.5 mg base)/3 mL nebulization of breath or wheezing #180 mL soln nitrofurantoin 100 mg PO Q12H 7 days #14 caps 12/18/23 monohydrate/macrocrystals 100 mg capsule (Macrobid) sennosides 8.6 mg-docusate sodium 2 tab-cap (2 x 8.6-50 mg) PO DAILY 12/28/23 50 mg tablet (Senna with Docusate constipation 3 months #180 tabs Sodium) Results & Data (ED) Vital Signs Vital Signs - 24 hr 02/05/24 13:27 02/05/24 13:53 02/05/24 13:57 Temperature 37.7 C H Temperature Source Oral Pulse Rate 111 H 115 H 119 H Pulse Rate from SpO2 Sensor 117 H Respiratory Rate 16 23 Respiratory Effort / Characteristics Respiratory Depth Respiratory Pattern Blood Pressure 156/83 H Blood Pressure Mean 107 Pulse Oximetry 92 92 Oxygen Delivery Method Nasal Cannula Oxygen Flow Rate 6 6 Fraction of Inspired Oxygen Sepsis Recent Fever Within 48 Hours Yes Sepsis New/Unexplained Change in Mental Status Yes Sepsis Action Taken by Nursing No Action Required 02/05/24 15:00 02/05/24 15:09 02/05/24 15:15 Temperature Temperature Source Pulse Rate 103 H 103 H 98 H Pulse Rate from SpO2 Sensor Respiratory Rate 20 17 22 Respiratory Effort / Characteristics Spontaneous Respiratory Depth Shallow Respiratory Pattern Regular Blood Pressure 139/65 115/58 L Blood Pressure Mean 89 72 Pulse Oximetry 94 92 94 Oxygen Delivery Method BiPAP BiPAP Oxygen Flow Rate Fraction of Inspired Oxygen 65 65 65 Sepsis Recent Fever Within 48 Hours Sepsis New/Unexplained Change in Mental Status Sepsis Action Taken by Nursing 02/05/24 15:30 02/05/24 15:34 02/05/24 15:45 Temperature Temperature Source Pulse Rate 96 H 90 93 H Pulse Rate from SpO2 Sensor Respiratory Rate 22 22 22 Respiratory Effort / Characteristics Respiratory Depth Respiratory Pattern Blood Pressure 78/41 L 75/39 L 76/42 L Blood Pressure Mean 53 50 47 Pulse Oximetry 94 94 93 Oxygen Delivery Method BiPAP BiPAP BiPAP Oxygen Flow Rate Fraction of Inspired Oxygen 65 65 65 Sepsis Recent Fever Within 48 Hours Sepsis New/Unexplained Change in Mental Status Sepsis Action Taken by Nursing 02/05/24 15:50 02/05/24 15:55 02/05/24 16:00 Temperature Temperature Source Pulse Rate 91 H 90 90 Pulse Rate from SpO2 Sensor Respiratory Rate 22 22 22 Respiratory Effort / Characteristics Respiratory Depth Respiratory Pattern Blood Pressure 89/44 L 86/47 L 84/46 L Blood Pressure Mean 51 51 52 Pulse Oximetry 94 94 95 Oxygen Delivery Method BiPAP BiPAP BiPAP Oxygen Flow Rate Fraction of Inspired Oxygen 65 65 65 Sepsis Recent Fever Within 48 Hours Sepsis New/Unexplained Change in Mental Status Sepsis Action Taken by Nursing 02/05/24 16:05 02/05/24 16:10 02/05/24 16:25 Temperature Temperature Source Pulse Rate 90 91 H 90 Pulse Rate from SpO2 Sensor Respiratory Rate 22 22 22 Respiratory Effort / Characteristics Respiratory Depth Respiratory Pattern Blood Pressure 92/47 L 94/48 L 126/71 Blood Pressure Mean 53 57 90 Pulse Oximetry 95 94 95 Oxygen Delivery Method BiPAP BiPAP BiPAP Oxygen Flow Rate Fraction of Inspired Oxygen 65 65 65 Sepsis Recent Fever Within 48 Hours Sepsis New/Unexplained Change in Mental Status Sepsis Action Taken by Nursing 02/05/24 16:30 Temperature Temperature Source Pulse Rate 93 H Pulse Rate from SpO2 Sensor Respiratory Rate 22 Respiratory Effort / Characteristics Respiratory Depth Respiratory Pattern Blood Pressure 125/62 Blood Pressure Mean 78 Pulse Oximetry 93 Oxygen Delivery Method BiPAP Oxygen Flow Rate Fraction of Inspired Oxygen 65 Sepsis Recent Fever Within 48 Hours Sepsis New/Unexplained Change in Mental Status Sepsis Action Taken by Nursing Laboratory Data 02/05/24 13:45 02/05/24 13:45 Lab Results 02/05/24 02/05/24 02/05/24 Range/Units 13:45 13:48 14:10 WBC 12.45 H (4.8-10.8) K/ul RBC 3.60 L (4.70-6.10) M/uL Hgb 9.5 L (14.0-18.0) g/dl POC Hgb 10.9 L (14.0-18.0) g/dl Hct 33.7 L (42.0-52.0) % POC Hct 32 L (42-52) % MCV 93.6 (80.0-100.0) fL MCH 26.4 (25.0-34.0) pg MCHC 28.2 L (32.0-36.0) g/dL RDW Std Deviation 56.4 H (36.4-46.3) fL RDW Coeff of Constantino 16.6 H (11.5-14.5) % Plt Count 191 (130-400) K/uL MPV 11.7 (9.4-12.4) fL Immature Gran % (Auto) 1.1 % Neut % (Auto) 71.7 % Lymph % (Auto) 16.6 % [place] % (Auto) 8.8 % Eos % (Auto) 1.4 % Baso % (Auto) 0.4 % Neut # (Auto) 8.91 H (1.40-6.50) K/uL Lymph # (Auto) 2.07 (1.20-3.40) K/uL [place] # (Auto) 1.10 H (0.11-0.59) K/uL Eos # (Auto) 0.18 (0.00-0.50) K/uL Baso # (Auto) 0.05 (0.00-0.20) K/uL Immature Gran # (Auto) 0.14 (0.01-0.20) K/uL Absolute Nucleated RBC 0.02 (0.00-0.12) K/uL Nucleated RBC % (auto) 0.2 % PT 11.0 (9.0-12.0) Seconds INR 1.0 (0.9-1.1) VBG pH (7.36-7.41) VBG pCO2 (38-50) mmHg VBG pO2 mmHg VBG HCO3 VBG O2 Saturation % VBG Base Excess POC Sodium 144 (135-144) mmol/L Sodium 143 (136-145) mmol/L POC Potassium 4.6 (3.3-5.0) mmol/L Potassium 4.3 (3.5-5.1) mmol/L POC Chloride 96 L (101-112) mmol/L Chloride 99 (98-107) mmol/L Carbon Dioxide 42 H* (21-32) mmol/L POC Total CO2 > 40 H* (24-31) mmol/L Anion Gap 2 L (3-11) POC Anion Gap 9.0 L (16-25) mmol/L POC BUN 29 H (7-18) mg/dl BUN 23 (6-23) mg/dl Creatinine 0.85 (0.6-1.4) mg/dl POC Creatinine 1.0 (0.6-1.3) mg/dl Est Cr Clr Drug Dosing 100.2 ml/min Est GFR ( Amer) 103.0 ml/min Est GFR (Non-Af Amer) 88.9 ml/min BUN/Creatinine Ratio 27.1 H (10-20) Glucose 101 H (70-99(Fasting)) mg/dl POC Glucose (other) 99 (70-99) mg/dl Lactate 0.5 (0.4-2.0) mmol/L Calcium 9.9 (8.6-10.3) mg/dl POC Ioniz Calcium Galileo 1.27 (1.12-1.32) mmol/l Magnesium 2.2 (1.7-2.4) mg/dl Total Bilirubin 0.3 (0.2-1.0) mg/dl AST 12 L (13-39) U/L ALT 13 (7-52) U/L Alkaline Phosphatase 91 (34-104) U/L Total Creatine Kinase 42 (30-223) U/L Troponin I High Sens 11.9 (0-20) pg/ml B-Natriuretic Peptide 93 (0-100) pg/ml Total Protein 7.9 (6.0-8.3) gm/dl Albumin 4.2 (3.4-5.0) gm/dl Globulin 3.7 (2.5-4.0) gm/dl Albumin/Globulin Ratio 1.1 (0.9-2) Procalcitonin 0.04 (0-0.5) ng/ml TSH 1.693 (0.300-4.500) uIu/ml Urine Color Urine Appearance (Clear) Urine pH (4.5-7.5) Ur Specific [place] (1.000-1.030) Urine Protein (Negative) Urine Glucose (UA) (Negative) Urine Ketones (Negative) Urine Blood (Negative) Urine Nitrite (Negative) Urine Bilirubin (Negative) Urine Urobilinogen (Negative) Ur Leukocyte Esterase (Negative) Urine WBC (Auto) (0-5) /hpf Urine RBC (Auto) (0-2) /hpf U Hyaline Cast (Auto) (0-2) /lpf U Epithel Cells (Auto) (0-2) /hpf Urine Bacteria (Auto) (None Seen) Adenovirus (PCR) Not Detected (NotDetected) B. pertussis DNA (PCR) Not Detected (NotDetected) B.parapertussis DNA PCR Not Detected (NotDetected) C. pneumoniae DNA (PCR) Not Detected (NotDetected) Coronavirus OC43 (PCR) Not Detected (NotDetected) Coronavirus HKU1 (PCR) Not Detected (NotDetected) Coronavirus 229E (PCR) Not Detected (NotDetected) SARS-CoV-2 (PCR) Not Detected (NotDetected) Coronavirus NL63 (PCR) Not Detected (NotDetected) Human Metapneumovir PCR Not Detected (NotDetected) Influenza Type A (PCR) Not Detected (NotDetected) Influenza Type B (PCR) Not Detected (NotDetected) M. pneumoniae (PCR) Not Detected (NotDetected) Parainfluenza 1 (PCR) Not Detected (NotDetected) Parainfluenza 2 (PCR) Not Detected (NotDetected) Parainfluenza 3 (PCR) Not Detected (NotDetected) Parainfluenza 4 (PCR) Not Detected (NotDetected) RSV (PCR) Not Detected (NotDetected) Entero/Rhino (PCR) Not Detected (NotDetected) 02/05/24 02/05/24 Range/Units 14:45 15:57 WBC (4.8-10.8) K/ul RBC (4.70-6.10) M/uL Hgb (14.0-18.0) g/dl POC Hgb (14.0-18.0) g/dl Hct (42.0-52.0) % POC Hct (42-52) % MCV (80.0-100.0) fL MCH (25.0-34.0) pg MCHC (32.0-36.0) g/dL RDW Std Deviation (36.4-46.3) fL RDW Coeff of Constantino (11.5-14.5) % Plt Count (130-400) K/uL MPV (9.4-12.4) fL Immature Gran % (Auto) % Neut % (Auto) % Lymph % (Auto) % [place] % (Auto) % Eos % (Auto) % Baso % (Auto) % Neut # (Auto) (1.40-6.50) K/uL Lymph # (Auto) (1.20-3.40) K/uL [place] # (Auto) (0.11-0.59) K/uL Eos # (Auto) (0.00-0.50) K/uL Baso # (Auto) (0.00-0.20) K/uL Immature Gran # (Auto) (0.01-0.20) K/uL Absolute Nucleated RBC (0.00-0.12) K/uL Nucleated RBC % (auto) % PT (9.0-12.0) Seconds INR (0.9-1.1) VBG pH 7.01 L (7.36-7.41) VBG pCO2 > 125 H (38-50) mmHg VBG pO2 90 mmHg VBG HCO3 TNP VBG O2 Saturation 94.5 % VBG Base Excess TNP POC Sodium (135-144) mmol/L Sodium (136-145) mmol/L POC Potassium (3.3-5.0) mmol/L Potassium (3.5-5.1) mmol/L POC Chloride (101-112) mmol/L Chloride (98-107) mmol/L Carbon Dioxide (21-32) mmol/L POC Total CO2 (24-31) mmol/L Anion Gap (3-11) POC Anion Gap (16-25) mmol/L POC BUN (7-18) mg/dl BUN (6-23) mg/dl Creatinine (0.6-1.4) mg/dl POC Creatinine (0.6-1.3) mg/dl Est Cr Clr Drug Dosing ml/min Est GFR ( Amer) ml/min Est GFR (Non-Af Amer) ml/min BUN/Creatinine Ratio (10-20) Glucose (70-99(Fasting)) mg/dl POC Glucose (other) (70-99) mg/dl Lactate (0.4-2.0) mmol/L Calcium (8.6-10.3) mg/dl POC Ioniz Calcium Galile[place] (1.12-1.32) mmol/l Magnesium (1.7-2.4) mg/dl Total Bilirubin (0.2-1.0) mg/dl AST (13-39) U/L ALT (7-52) U/L Alkaline Phosphatase (34-104) U/L Total Creatine Kinase (30-223) U/L Troponin I High Sens (0-20) pg/ml B-Natriuretic Peptide (0-100) pg/ml Total Protein (6.0-8.3) gm/dl Albumin (3.4-5.0) gm/dl Globulin (2.5-4.0) gm/dl Albumin/Globulin Ratio (0.9-2) Procalcitonin (0-0.5) ng/ml TSH (0.300-4.500) uIu/ml Urine Color Yellow Urine Appearance Clear (Clear) Urine pH 5.5 (4.5-7.5) Ur Specific [place] 1.018 (1.000-1.030) Urine Protein 3+ H (Negative) Urine Glucose (UA) Negative (Negative) Urine Ketones Negative (Negative) Urine Blood Negative (Negative) Urine Nitrite Negative (Negative) Urine Bilirubin Negative (Negative) Urine Urobilinogen Negative (Negative) Ur Leukocyte Esterase Trace H (Negative) Urine WBC (Auto) 0-5 (0-5) /hpf Urine RBC (Auto) 0-2 (0-2) /hpf U Hyaline Cast (Auto) 6-10 H (0-2) /lpf U Epithel Cells (Auto) 0-2 (0-2) /hpf Urine Bacteria (Auto) None Seen (None Seen) Adenovirus (PCR) (NotDetected) B. pertussis DNA (PCR) (NotDetected) B.parapertussis DNA PCR (NotDetected) C. pneumoniae DNA (PCR) (NotDetected) Coronavirus OC43 (PCR) (NotDetected) Coronavirus HKU1 (PCR) (NotDetected) Coronavirus 229E (PCR) (NotDetected) SARS-CoV-2 (PCR) (NotDetected) Coronavirus NL63 (PCR) (NotDetected) Human Metapneumovir PCR (NotDetected) Influenza Type A (PCR) (NotDetected) Influenza Type B (PCR) (NotDetected) M. pneumoniae (PCR) (NotDetected) Parainfluenza 1 (PCR) (NotDetected) Parainfluenza 2 (PCR) (NotDetected) Parainfluenza 3 (PCR) (NotDetected) Parainfluenza 4 (PCR) (NotDetected) RSV (PCR) (NotDetected) Entero/Rhino (PCR) (NotDetected) Administered Medications Norepinephrine Bitartrate (Levophed/D5w) 4 mg in 250 mls @ 21.244 mls/hr IV [id number]; Protocol Stop: 03/06/24 15:44 Last Titration: 02/05/24 16:35 Dose: 0 mcg/kg/min, 0 mls/hr Documented By: Titration: 02/05/24 16:11 Dose: 0.07 mcg/kg/min, 29.7 mls/hr Documented By: Admin: 02/05/24 15:44 Dose: 0.05 mcg/kg/min, 21.2 mls/hr Documented By: UBALDO Co-signed By: KV Discontinued Medications Furosemide (Furosemide 40 Mg/4 Ml Vial) 40 mg IV ONE ONE Stop: 02/05/24 15:08 Last Admin: 02/05/24 15:12 Dose: 40 mg Documented By: UBALDO Acetaminophen (Ofirmev) 1,000 mg in 100 mls @ 400 mls/hr IV NOW STA Stop: 02/05/24 14:16 Last Infusion: 02/05/24 15:31 Dose: Infused Documented By: Admin: 02/05/24 14:26 Dose: 400 mls/hr Documented By: Sodium Chloride (Nss) 1,000 mls @ 999 mls/hr IV .[id number] ONE Stop: 02/05/24 15:16 Last Infusion: 02/05/24 15:31 Dose: Infused Documented By: Admin: 02/05/24 14:26 Dose: 999 mls/hr Documented By: Piperacillin Sod/Tazobactam Sod (Zosyn) 4.5 gm in 100 mls @ 200 mls/hr IV NOW ONE Stop: 02/05/24 15:35 Last Infusion: 02/05/24 16:23 Dose: Infused Documented By: Admin: 02/05/24 15:50 Dose: 200 mls/hr Documented By: UBALDO Miscellaneous (Stat Iv Infusion Titration Per Protocol) 1 each N/A NOW STA Stop: 02/05/24 15:37 Last Admin: 02/05/24 15:48 Dose: 1 each Documented By: UBALDO Imaging Data Radiologist's Impression: Chest X-Ray 02/05/24 14:00 XR chest 1V portable HISTORY: altered mental status COMPARISON: Chest 10/22/2023. FINDINGS: There are low lung volumes. The heart remains enlarged. The patient's head obscures the lung apices. No definite pneumothorax. No acute fractures. There is progressive perihilar interstitial and vascular thickening consistent with moderate pulmonary edema. Patchy densities within left midlung zone are new from the prior study. There are small bilateral pleural effusions. Right basilar mass again noted. IMPRESSION: 1. Interval progression of the moderate pulmonary edema and small bilateral pleural effusions. 2. Right basilar mass again noted. 3. Patchy densities within the left midlung zone are new compared the prior study and may represent a component of pulmonary edema or a superimposed pneumonitis. ACT 112: Negative or not required by law. Electronically signed by: Marko Kwong M.D. 02/05/2024 3:04 PM Discharge Plan Visit Data Chief Complaint: Altered Mental Status ED Provider: Grace Cerda Discharge Problem: AMS (altered mental status), Acute respiratory failure with hypoxia and hypercapnia, Acute hypotension, Leukocytosis, Pulmonary edema, Acute respiratory acidosis Forms Stand Alone Forms: My [facility] Prescriptions Prescriptions: No Action (DME) Auto Titrating CPAP Misc See Rx Instructions .MEDSUPPLY Qty: 1 0RF Rx Instructions: Auto PAP with 5-16 cm H20 with 4L oxygen bled into it. Lifetime usage. G47.33 (DME) CPAP Supplies Misc See Rx Instructions .MEDSUPPLY Qty: 1 0RF Rx Instructions: CPAP supplies, mask, headgear, filters, tubing, water chamber. G47.33 nitrofurantoin monohyd/m-cryst [Macrobid] 100 mg capsule 100 mg PO Q12H 7 Days Qty: 14 0RF Rx Instructions: must administer with a meal/food cranberry 400 mg capsule 400 mg PO DAILY Rx Instructions: otc. unable to verify with pharmacy 10/17/23 administer with a meal ascorbate calcium (vitamin C) 500 mg tablet 500 mg PO DAILY Rx Instructions: otc. unable to verify with pharmacy 10/17/23 garlic 1,000 mg capsule 1,000 mg PO DAILY Rx Instructions: otc. unable to verify with pharmacy 10/17/23 saw palmetto 500 mg capsule 500 mg PO BID Rx Instructions: otc. unable to verify with pharmacy 10/17/23 give with food (meal/snack) cwvnwgoy-huwg-azatt-oreg-capry 100 mg-150 mg- 50 mg-150 mg capsule 1 cap PO UD Rx Instructions: otc. unable to verify with pharmacy 10/17/23 lisinopril 10 mg tablet 10 mg PO QAM sennosides-docusate sodium [Senna with Docusate Sodium] 8.6-50 mg tablet 2 tab-cap PO DAILY 90 Days Qty: 180 6RF dutasteride 0.5 mg capsule 0.5 mg PO DAILY Qty: 30 6RF Breztri Aerosphere 160-9-4.8 mcg/actuation HFA aerosol inhaler 2 inh inhalation BID Qty: 10.7 6RF ipratropium-albuterol 0.5 mg-3 mg(2.5 mg base)/3 mL solution for nebulization 3 ml inhalation Q8H PRN (Reason: shortness of breath or wheezing) Qty: 180 3RF metoprolol succinate 50 mg tablet extended release 24 hr 50 mg PO DAILY hydrochlorothiazide 25 mg tablet 25 mg PO QAM rosuvastatin 20 mg tablet 20 mg PO QAM metformin 500 mg Tablet Extended Release 24 Hr 500 mg PO QAM furosemide 40 mg Tablet 40 mg PO QAM Qty: 30 0RF prednisone 10 mg Tablet 30 mg PO DAILY Qty: 9 0RF Rx Instructions: x 1 day then 20mg daily x 2 days then 10mg daily x 2 days then STOP tamsulosin 0.4 mg Capsule 0.4 mg PO HS Qty: 30 0RF guaifenesin [Mucinex] 600 mg Tablet Extended Release 12hr 600 mg PO Q12 Qty: 60 0RF Referrals Referrals: Unique Moser MD, [facility] [Physician] -
[2024-02-05 14:48] LABS: Thyroid Stimulating Hormone 1.693 uIu/ml (0.300-4.500)
[2024-02-05 15:04] LABS: Oxygen Saturation VBG 94.5 %; PCO2 VBG > 125 mmHg (38-50); PO2 VBG 90 mmHg; pH VBG 7.01 (7.36-7.41)
--- NOTE | 2024-02-05 15:05 | XRay Report ---
XR chest 1V portable HISTORY: altered mental status COMPARISON: Chest 10/22/2023. FINDINGS: There are low lung volumes. The heart remains enlarged. The patient's head obscures the nelson g apices. No definite pneumothorax. No acute fractures. There is progressive perihilar interstitial a nd vascular thickening consistent with moderate pulmonary edema. Patchy densities within left midlung zone are new from the prior study. There are small bilateral pleural effusions. Right basilar mass a gain noted. IMPRESSION: 1. Interval progression of the moderate pulmonary edema and small bilateral pleural effusions. 2. Right basilar mass again noted. 3. Patchy densities within the left midlung zone are new compared the prior study and may represent a component of pulmonary edema or a superimposed pneumonitis. ACT 112: Negative or not required by law. Electronically signed by: Marko Kwong M.D. 02/05/2024 3:04 PM
[2024-02-05] MEDS: FUROSEMIDE 40 MG/4 ML VIAL IV ONE (15:12)
[2024-02-05 15:29] LABS: Adenovirus PCR Not Detected (NotDetected); Bordetella parapertussis PCR Not Detected (NotDetected); Bordetella pertussis PCR Not Detected (NotDetected); Chlamydia pneumoniae PCR Not Detected (NotDetected); Coronavirus 229E PCR Not Detected (NotDetected); Coronavirus CoV-2 (COVID19)PCR Not Detected (NotDetected); Coronavirus HKU1 PCR Not Detected (NotDetected); Coronavirus NL63 PCR Not Detected (NotDetected); Coronavirus OC43PCR Not Detected (NotDetected); Human Metapneumovirus PCR Not Detected (NotDetected); Influenza A PCR Not Detected (NotDetected); Influenza B PCR Not Detected (NotDetected); Mycoplasma pneumoniae PCR Not Detected (NotDetected); Parainfluenza Virus 1 PCR Not Detected (NotDetected); Parainfluenza Virus 2 PCR Not Detected (NotDetected); Parainfluenza Virus 3 PCR Not Detected (NotDetected); Parainfluenza Virus 4 PCR Not Detected (NotDetected); Respiratory Syncytial VirusPCR Not Detected (NotDetected); Rhinovirus/Enterovirus PCR Not Detected (NotDetected)
[2024-02-05] MEDS: NOREPINEPHRINE/D5W 4 MG/250 ML PLCT IV SCH (15:44)
[2024-02-05] MEDS: STAT IV Infusion **Titration per Protocol STA (15:48)
[2024-02-05] MEDS: PIPERACILLIN/TAZOBACTAM 4.5 GM/100 ML BAG IV ONE (15:50)
[2024-02-05 16:23] LABS: Appearance Urine Clear (Clear); Bacteria Urine Automated None Seen (None Seen); Bilirubin Urine Negative (Negative); Blood Urine Negative (Negative); Color Urine Yellow; Epithelial Cell Urine Auto 0-2 /hpf (0-2); Glucose Urine UA Negative (Negative); Ketones Urine Negative (Negative); Leukocyte Esterase Urine Trace (Negative); Nitrite Urine Negative (Negative); Protein Urine 3+ (Negative); RBC Urine Automated 0-2 /hpf (0-2); Specific Gravity Urine 1.018 (1.000-1.030); Urobilinogen Urine Negative (Negative); WBC Urine Automated 0-5 /hpf (0-5); pH Urine 5.5 (4.5-7.5)
--- NOTE | 2024-02-05 17:16 | History & Physical Report ---
Date of Service February 05, 2024 Assessment & Plan (1) Acute respiratory failure with hypoxia and hypercapnia: Plan: Goals of Care Reviewed his underlying disease, and critical illness at time of admission. Discussed that with optimal medical therapy goal would be to return him to a baseline health of around 10 days - 2 weeks ago. Family is going to call patient's brother Tyrel who is his designated power of united states attorney, in the event of his absence his sister Miesha would be his next surrogate decision maker. Family at bedside do report that escalation to ICU level of care and vasopressors, are not within [place] goals of care. He would not want ICU, central lines, invasive procedures, or intubation under any circumstances.They believe that he would most likely want to focus on comfort oriented measures however they note the most important factor for him was always to be home and did not be in the hospital and patient is currently too ill for transport back home. Reviewed potential for PPV, conservative interventions, and further evaluation of respiratory failure with CTA on PCU with no escalation of care, and option for comfort measures with family at bedside. They would like to discuss this between themselves and with his brother Tyrel by phone. _ Following family meeting including patient's brother and medical POA Tyrel they would to defer any additional testing including CAT scans and diagnostics other than VBG. They would like to give a few hours, around to 2-hour checks to see if he is making any meaningful improvement on BiPAP with clinical improvement in his mentation or significant improvement on his ABG. If he was able to mentate with then like to include him in conversation, and ultimately stabilize him for a goal of returning to home on hospice. If he does not make improvements in mentation over the next few hours, or clinically declines at any point and they would like to move to STORE MANAGER within the hospital. In the setting as Dawit has consistently reported that he did not want wish to wear BiPAP as an outpatient would not want to continue to wear it just to try to extend his life they would like to move STORE MANAGER, remove BiPAP, and keep him as comfortable as possible on easel cannula oxygen only for comfort. They are aware that nasal cannula oxygen does not help with hypercapnia, and that outside of intubation BiPAP/PPV is the only measure that meaningfully will improve this. Signed out to overnight resident Dr. Mitchell, who is also the patients PCP and familiar with both his case and family. Acute on chronic hypoxic hypercapnic respiratory failure Due to severe COPD, underlying lung cancer, +/- acute on chronic heart failure with history of cor pulmonale S/p Lasix x 1 in the ER with brisk diuresis VBG 7.0, CO2 above the limits of detection greater than 125 on admission Patient with pulmonary edema and suspected progressive cor pulmonale as noted. Lasix was given as noted. No fever EDUCATION DEAN, procalcitonin is negative and has had no preceding cough or pneumonia symptoms Lactate is normal on admission BNP is not elevated, 93. Troponin is normal at 11.9. CTA discontinued, see goals of care above (2) Restrictive lung disease: Plan: History of restrictive lung disease, COPD, spindle cell lung cancer Management of respiratory failure as noted above (3) Cor pulmonale: Plan: Lasix as noted (4) Diabetes mellitus: Plan: Type II DM Metformin held Sliding scale insulin goal [id number] while inpatient Patient's mental status currently precludes diet, fluids deferred due to volume overload Plan DVT prophylaxis: Lovenox Diet: N.p.o. 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 She did call the hospice nurse to evaluate Mr. Perdomo however she arrived at the same time as EMS and he was taken emergently to the ER. While in the ER he is hypotensive, hypoxic, borderline febrile, and tachycardic. Bio fire is negative. VBG is with pCO2 greater than the limits of detection, greater than 125. pH 7.01. Patient was placed on Levophed, and hospitalist services were consulted for admission. He had a GCS of 3 in the ER, was not intubated due to clear expression of DNR/DNI wishes both on file and to family previously. Collateral is collected from family at time of bedside assessment, patient is obtunded and no information is available due to mental status from patient. Family reports that he has been much more confused in the last week or 2. He is generally uncomfortable and pulls off his oxygen, and does not like wearing his BiPAP at home. He does tend to be more confused in the evenings. He recently enrolled in hospice. He had not had any fevers, chills, sweats, cough or new cold-like symptoms recently to family's knowledge. Reviewed his underlying disease, and critical illness at time of admission. Discussed that with optimal medical therapy goal would be to return him to a baseline health of around 10 days - 2 weeks ago. Family is going to call patient's brother Tyrel who is his designated power of united states attorney, in the event of his absence his sister Miesha would be his next surrogate decision maker. Family at bedside do report that escalation to ICU level of care and vasopressors, are not within [place] goals of care. He would not want ICU, central lines, invasive procedures, or intubation under any circumstances. They believe that he would most likely want to focus on comfort oriented measures however they note the most important factor for him was always to be home and did not be in the hospital and patient is currently too ill for transport back home. Reviewed potential for PPV, conservative interventions, and further evaluation of respiratory failure with CTA on PCU with no escalation of care, and option for comfort measures with family at bedside. They would like to discuss this between themselves and with his brother Tyrel by phone. _ Following family meeting including patient's brother and medical POA Tyrel they would to defer any additional testing including CAT scans and diagnostics other than VBG. They would like to give a few hours, around to 2-hour checks to see if he is making any meaningful improvement on BiPAP with clinical improvement in his mentation or significant improvement on his ABG. If he was able to mentate with then like to include him in conversation, and ultimately stabilize him for a goal of returning to home on hospice. If he does not make improvements in mentation over the next few hours, or clinically declines at any point and they would like to move to STORE MANAGER within the hospital. In the setting as Dawit has consistently reported that he did not want wish to wear BiPAP as an outpatient would not want to continue to wear it just to try to extend his life they would like to move STORE MANAGER, remove BiPAP, and keep him as comfortable as possible on easel cannula oxygen only for comfort. They are aware that nasal cannula oxygen does not help with hypercapnia, and that outside of intubation BiPAP/PPV is the only measure that meaningfully will improve this. Allergies Allergy/AdvReac Type Severity Reaction Status Date / Time No Known Allergies Allergy Verified 02/05/24 17:22 Home Medications Medication Instructions Recorded Confirmed Type ascorbate calcium (vitamin C) 500 500 mg PO DAILY 05/17/23 02/05/24 History mg tablet cranberry 400 mg capsule 400 mg PO DAILY 05/17/23 02/05/24 History garlic 1,000 mg capsule 1,000 mg PO DAILY 05/17/23 02/05/24 History lisinopril 10 mg tablet 10 mg PO QAM 05/17/23 02/05/24 History saw palmetto 500 mg capsule 500 mg PO BID 05/17/23 02/05/24 History Auto Titrating CPAP #1 ea 08/31/23 02/05/24 Rx CPAP Supplies #1 ea 08/31/23 02/05/24 Rx metformin 500 mg tablet,extended 500 mg PO QAM 10/17/23 02/05/24 History release 24 hr furosemide 40 mg tablet 40 mg PO QAM #30 tabs 10/26/23 02/05/24 Rx guaifenesin 600 mg tablet, 600 mg PO Q12 #60 tabs 10/26/23 02/05/24 Rx extended release 12 hr (Mucinex) tamsulosin 0.4 mg capsule 0.4 mg PO HS #30 caps 10/26/23 02/05/24 Rx dutasteride 0.5 mg capsule 0.5 mg PO DAILY #30 caps 11/16/23 02/05/24 Rx budesonide 160 mcg-glycopyr 9 2 inh inhalation BID #10.7 grams 11/22/23 02/05/24 Rx mcg-formot 4.8 mcg/actuation HFA inhaler (Breztri Aerosphere) ipratropium 0.5 mg-albuterol 3 mg 3 ml inhalation Q8H PRN shortness 11/22/23 02/05/24 Rx (2.5 mg base)/3 mL nebulization of breath or wheezing #180 mL soln sennosides 8.6 mg-docusate sodium 2 tab-cap (2 x 8.6-50 mg) PO DAILY 12/28/23 02/05/24 Rx 50 mg tablet (Senna with Docusate constipation 3 months #180 tabs Sodium) albuterol sulfate 90 mcg/actuation 2 puff inhalation Q4 PRN wheeze 02/05/24 02/05/24 History aerosol inhaler hydrochlorothiazide 25 mg tablet 25 mg PO QAM 02/05/24 02/05/24 History metoprolol succinate 50 mg 25 mg PO DAILY 02/05/24 02/05/24 History tablet,extended release 24 hr rosuvastatin 10 mg tablet 10 mg PO QAM 02/05/24 02/05/24 History Past Med/Surg History Problem List (Updated 02/05/24 @ 16:26 by Grace Cerda MD) Acute respiratory acidosis (Acute) Pulmonary edema (Acute) Leukocytosis (Acute) Acute hypotension (Acute) Acute respiratory failure with hypoxia and hypercapnia (Acute) AMS (altered mental status) (Acute) Constipation by delayed colonic transit Physician orders for life-sustaining treatment (POLST) form indicates patient wish for [id number] status Advanced care planning/counseling discussion Palliative care by specialist Dyspnea and respiratory abnormalities Abnormal chest CT ANANT (obstructive sleep apnea) BPH NOS w ur obs/LUTS Urinary retention Insomnia Spindle cell carcinoma of thorax Multifocal pneumonia Anemia (Acute) Respiratory acidosis (Acute) CHF (congestive heart failure) (Acute) Cor pulmonale Diabetes mellitus Goals of care, counseling/discussion Ex-smoker Restrictive lung disease Obesity Chronic respiratory failure with hypoxia and hypercapnia Hypersomnia Medical History HTN (hypertension) Solitary fibrous neoplasm COPD with emphysema Social History Smoking Status: Former smoker Tobacco Type: Cigarettes Age Started Using Tobacco: 11; Age Quit Using Tobacco: 66; packs per day: 3; Cigarettes Per Day: 3 PPD; Second Hand Exposure: Yes; Do You Dip or Chew Tobacco: No; Hx Alcohol Use: No Hx Substance Use: No Preferred Language: [place]er Communication Ability: Effective 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 Withdraws slightly to noxious stimuli HEENT: Atraumatic, normocephalic. On BiPAP. Pupils reactive to light bilaterally Pulm: Globally diminished, coarse. Symmetrical chest rise. No increased work of breathing. No respiratory distress. Cardiac: RRR, -mrg. Radial pulses intact and symmetrical. Abdominal: Nontender, nondistended, soft. BS present. Results & Data Results & Data Vital Signs (Past 12 Hours) Vital Signs Temp Pulse Resp BP Pulse Ox O2 Del Method O2 Flow Rate 02/05/24 16:55 92 H 22 116/59 L 96 BiPAP 02/05/24 16:45 91 H 22 123/65 94 BiPAP 02/05/24 16:40 90 22 107/56 L 95 BiPAP 02/05/24 16:40 90 22 107/56 L 95 BiPAP 02/05/24 16:35 90 22 113/59 L 95 02/05/24 16:30 90 22 125/62 94 02/05/24 16:30 93 H 22 125/62 93 BiPAP 02/05/24 16:25 90 22 126/71 95 BiPAP 02/05/24 16:10 91 H 22 94/48 L 94 BiPAP 02/05/24 16:05 90 22 92/47 L 95 BiPAP 02/05/24 16:00 90 22 84/46 L 95 BiPAP 02/05/24 15:55 90 22 86/47 L 94 BiPAP 02/05/24 15:50 91 H 22 89/44 L 94 BiPAP 02/05/24 15:45 93 H 22 76/42 L 93 BiPAP 02/05/24 15:34 90 22 75/39 L 94 BiPAP 02/05/24 15:30 96 H 22 78/41 L 94 BiPAP 02/05/24 15:15 98 H 22 115/58 L 94 BiPAP 02/05/24 15:09 103 H 17 92 02/05/24 15:00 103 H 20 139/65 94 BiPAP 02/05/24 13:57 119 H 23 92 6 02/05/24 13:53 115 H 02/05/24 13:27 37.7 C H 111 H 16 156/83 H 92 Nasal Cannula 6 FiO2 02/05/24 16:55 65 02/05/24 16:45 65 02/05/24 16:40 65 02/05/24 16:40 65 02/05/24 16:35 65 02/05/24 16:30 65 02/05/24 16:30 65 02/05/24 16:25 65 02/05/24 16:10 65 02/05/24 16:05 65 02/05/24 16:00 65 02/05/24 15:55 65 02/05/24 15:50 65 02/05/24 15:45 65 02/05/24 15:34 65 02/05/24 15:30 65 02/05/24 15:15 65 02/05/24 15:09 65 02/05/24 15:00 65 02/05/24 13:57 02/05/24 13:53 02/05/24 13:27 PG Care Time/CCT Total # of Minutes Spent Total Time Spent with Patient: Total time spent is greater than 50% in coordination of care (as documented) at patient's floor/unit and/or counseling patient: Coding Level of Care Code 41163 INT INP/OBS CARE 3/75MIN Diagnoses Acute respiratory failure with hypoxia and hypercapnia J96.01; J96.02 Restrictive lung disease J98.4 Cor pulmonale I27.81 Diabetes mellitus E11.9
[2024-02-05] MEDS: SODIUM CHLORIDE 0.9% 1,000 ML IV STA (17:21)
[2024-02-05 17:28] LABS: HCO3 ABG 42 mmol/L (19-24); Oxygen Saturation ABG 94.3 % (90-95); PCO2 ABG 109 mmHg (35-46); PO2 ABG 72 mmHg (80-95)
[2024-02-05 17:33] LABS: Allen Test Pos (Pos)
[2024-02-05 17:45] LABS: pH ABG 7.19 (7.35-7.45)
[2024-02-05 20:32] LABS: iSTAT Arterial Blood Gas HCO3 42 meg/L (19-24); iSTAT Arterial Blood Gas pCO2 > 115 mmHg (35-46); iSTAT Arterial Blood Gas pH 7.16 (7.35-7.45); iSTAT Arterial Blood Gas pO2 < 32 mmHg (80-95); iSTAT Carbon Dioxide > 40 mmol/L (24-31); iSTAT Hematocrit 27 % (42-52); iSTAT Hemoglobin 9.2 g/dl (14.0-18.0); iSTAT Potassium 4.4 mmol/L (3.3-5.0); iSTAT Sodium 143 mmol/L (135-144)
[2024-02-05] MEDS ORDERED: ALBUT/IPRATROP 3MG/0.5MG NEB 3 ML VIAL INH PRN (20:45)
[2024-02-05] MEDS ORDERED: ALBUTEROL HFA 8 GM INHALER INH PRN (20:45)
[2024-02-05] MEDS: TAMSULOSIN HCL 0.4 MG CAP PO SCH (21:08)
--- NOTE | 2024-02-05 21:16 | Electrocardiogram Report ---
Test Reason : Blood Pressure : */* mmHG Vent. Rate : 111 BPM Atrial Rate : 111 BPM P-R Int : 152 ms QRS Dur : 94 ms QT Int : 306 ms P-R-T Axes : 43 40 48 degrees QTcB Int : 416 ms Sinus tachycardia with occasional Premature ventricular complexes Possible Left atrial enlargement Incomplete right bundle branch block Borderline ECG No previous ECGs available Confirmed by Inocente Lopez ([id number]) on 02/05/2024 9:16:27 PM Referred By: Confirmed By: Inocente Lopez
[2024-02-05] MEDS: ENOXAPARIN INJ 40 MG/0.4 ML SYR SQ SCH (21:25)
[2024-02-05 22:45] LABS: iSTAT Arterial Blood Gas HCO3 42 meg/L (19-24); iSTAT Arterial Blood Gas pCO2 96 mmHg (35-46); iSTAT Arterial Blood Gas pH 7.24 (7.35-7.45); iSTAT Arterial Blood Gas pO2 < 32 mmHg (80-95); iSTAT Carbon Dioxide > 40 mmol/L (24-31); iSTAT FiO2 65 %; iSTAT Hematocrit 29 % (42-52); iSTAT Hemoglobin 9.9 g/dl (14.0-18.0); iSTAT Potassium 4.5 mmol/L (3.3-5.0); iSTAT Sodium 144 mmol/L (135-144)
[2024-02-06 00:37] LABS: Base Excess ABG 12.2 mEq/L (-9-1.8); HCO3 ABG 42 mmol/L (19-24); Oxygen Saturation ABG 97.4 % (90-95); PCO2 ABG 77 mmHg (35-46); PO2 ABG 82 mmHg (80-95); pH ABG 7.34 (7.35-7.45)
[2024-02-06 00:40] LABS: Allen Test Pos (Pos)
--- NOTE | 2024-02-06 07:01 | Hospitalist Progress Note ---
Date of Service February 06, 2024 Assessment & Plan (1) Acute respiratory failure with hypoxia and hypercapnia: (2) CHF (congestive heart failure): (3) Cor pulmonale: (4) Diabetes mellitus: (5) Goals of care, counseling/discussion: (6) Restrictive lung disease: Plan Pt is a 68 yo male with a past med hx of chronic resp failure with hypoxia and hypercapnia, severe COPD, CHF, cor pulmonale, DM, spindle cell carcinoma of thorax, ANANT, and BPH, who presents to the hospital on 02/04 for altered mental status in the setting of acute on chronic resp failure. Acute on chronic hypoxic hypercapnic respiratory failure Due to severe COPD, underlying lung cancer, +/- acute on chronic heart failure with history of cor pulmonale S/p Lasix x 1 in the ER with brisk diuresis VBG 7.0, CO2 above the limits of detection greater than 125 on admission, improved on Bipap and worsened off bipap Patient with pulmonary edema and suspected progressive cor pulmonale as noted. Lasix was given as noted. 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 Troponin is normal at 11.9. Lactate is normal on admission CTA discontinued - Goals of care discussed with family: pt ultimately would like to go home with hospice. To avoid invasive measures, would not want intubated, advanced lines, ventilated, compressions. Does not want life prolonging measures. Discussed with sister and brother (POA) this morning and sister will be in from [place] later today and will help guide decision but goal is use of high flow or bipap as tolerated to improve resp failure with goal to go back home with hospice. Sister notes hx of noncompliance with home O2/bipap as likely a cause for how he deteriorated at home. Restrictive lung disease History of restrictive lung disease, COPD, spindle cell lung cancer Management of respiratory failure as noted above Cor pulmonale Lasix as noted Diabetes mellitus Type II DM Metformin held Sliding scale insulin goal [id number] [id number] while inpatient Patient's mental status currently precludes diet, fluids deferred due to volume overload DVT prophylaxis: Lovenox Diet: N.p.o. due to mentation Admission and Anticipated Discharge Date Admission Date: February 05, 2024 Supervising Physician Co-Signing Physician Notes ATTESTATION I also saw the patient and confirmed huynh portions of the history and exam. I agree with the impression and plan in the resident documentation, and as summarized below. I have met with the patient before in the outpatient office. I recently saw him along with the resident physician, Dr. Mitchell, at which time the patient elected hospice services. The sister, who is at bedside today, was also present for the conversation. The patient was quite confused when they called him yesterday. They drove from [place] to be here locally to check on him; they had called the hospice nurse while they were driving in however, before the hospice nurse to get there, a neighbor apparently came over and called 911 -thus how he ended up in the emergency department. This morning, he has been switched from BiPAP to high flow nasal cannula 10 L/min. He is a little bit more awake; opens his eyes to voice, waves, answer simple questions with one-word answers or by nodding. This represents an improvement compared to last night. EXAM 118/67, 119, 24, 38.5, 96% on high flow nasal cannula at 10 L/min Orientation as noted above Heart regular/tachycardic Lung sounds coarse; Transmitted upper airway sounds DATA Labs White blood cell count 12.45, hemoglobin 9.5 Sodium 146, calcium 4.1, BUN 27, creatinine 1.17 Imaging Chest x-ray shows interval progression of moderate pulmonary edema and small bilateral pleural effusions; right basilar mass and patchy densities within the left mid lung zone. Micro Respiratory pathogen panel is negative IMPRESSION & PLAN Acute on chronic hypoxic hypercapnic respiratory failure Acute on chronic heart failure/Cor pulmonale Hospice patient Goals of care conversation had with family at bedside. At present, continue supplemental oxygen, BiPAP if patient tolerates, but no additional escalation of care. Hopeful that his sensorium will continue to improve, albeit slowly, to get a closer to his baseline. At this point, we could have extended conversations with regards to goals of care. If needed, as needed dose of Lasix could very well be considered comfort care if it improves his breathing. He is clearly DO NOT RESUSCITATE and DO NOT INTUBATE; Patient was pretty clear about this when we talk as an outpatient, and family reaffirms this today. Goal would be to return to hospice, but this may need to be provided in the facility versus return home Additional per resident documentation Subjective Today, pt seen this morning at [facility] in which pt altered/not responsive to verbal stimuli. Nursing staff state that last night his sister had gone to see him, he was altered, then she called the hospice nurse who did not burr picker so she called EMS. Nursing staff state overnight he was on bipap but did wake up and became more alert so he was placed on high flow nasal canula, and then was found without nasal canula on and once again lethargic. Pt placed back on bipap. He was seen again later this morning and was drowsy but responded to verbal stimuli. Review of Systems Review of Systems: Per HPI. Physical Exam Physical Exam: General:Drowsy, HEENT: Normocephalic, moist oral mucosa Cardio: Tachycardic but regular rhythm, Resp:Increased resp effort, poor air movement bilaterally Skin: Warm, pink, dry, Results & Data Results & Data Vital Signs (Past 12 Hours) Vital Signs Temp Pulse Pulse Resp BP BP Pulse Ox 02/06/24 04:21 94 02/06/24 03:39 114 H 133/64 89 L 02/06/24 03:19 37.3 C 95 H 18 115/65 97 02/05/24 23:27 90 27 H 97 02/05/24 23:01 37.2 C 89 18 118/67 97 02/05/24 21:50 02/05/24 21:42 65 02/05/24 21:00 36.9 C 94 H 20 114/67 92 02/05/24 20:55 90 02/05/24 20:47 82 16 98 02/05/24 19:00 93 H 18 133/63 95 O2 Del Method O2 Flow Rate FiO2 02/06/24 04:21 High Flow Nasal Cannula 6 02/06/24 03:39 Nasal Cannula 5 02/06/24 03:19 BiPAP 02/05/24 23:27 65 02/05/24 23:01 Room Air 02/05/24 21:50 BiPAP 65 02/05/24 21:42 02/05/24 21:00 BiPAP 02/05/24 20:55 02/05/24 20:47 65 02/05/24 19:00 BiPAP Resident Activity Tracking Resident Involvement: Resident Care Provided Care Provided: Adult Hospital Medicine (2) CHF (congestive heart failure) Heart failure chronicity: acute Heart failure type: unspecified Qualified Code(s): I50.9 - Heart failure, unspecified
[2024-02-06 07:33] LABS: Oxygen Saturation VBG 95.5 %; PCO2 VBG > 125 mmHg (38-50); PO2 VBG 88 mmHg
[2024-02-06 08:01] LABS: BUN Creatinine Ratio 23.1 (10-20); Calcium 9.4 mg/dl (8.6-10.3); Creatinine Clr Calc Pharmacy 76.4 ml/min; Est GFR (African American) 73.3 ml/min; Est GFR (Non-African American) 63.2 ml/min; Potassium 4.1 mmol/L (3.5-5.1)
[2024-02-06] MEDS: FLUTICASONE FUROATE 200MCG 14 PUFFS/INHALER INH SCH (11:29)
[2024-02-06] MEDS: UMECLIDINIUM/VILANTEROL 62.5/25MCG 7 PUFFS/INHALER INH SCH (11:29)
[2024-02-06] MEDS: ACETAMINOPHEN 1,000 MG/100 ML VIAL IV PRN (11:29)
[2024-02-06] MEDS: DOCUSATE SODIUM/SENNA 50/8.6MG TAB PO SCH (12:00)
[2024-02-06] MEDS: FUROSEMIDE 40 MG TAB PO SCH (12:01)
[2024-02-06] MEDS: lisinopril 10 MG TAB PO SCH (12:01)
[2024-02-06] MEDS: hydroCHLOROthiazide 25 MG TAB PO SCH (12:01)
[2024-02-06] MEDS: metFORMIN HCL ER 500 MG TABCR PO SCH (12:01)
[2024-02-06] MEDS: ROSUVASTATIN CALCIUM 10 MG TAB PO SCH (12:01)
[2024-02-06] MEDS: METOPROLOL SUCC 25MG EXT REL TAB PO SCH (12:01)
--- NOTE | 2024-02-07 06:42 | Hospitalist Progress Note ---
Date of Service February 07, 2024 Assessment & Plan (1) Acute respiratory failure with hypoxia and hypercapnia: (2) CHF (congestive heart failure): (3) Cor pulmonale: (4) Diabetes mellitus: (5) Goals of care, counseling/discussion: (6) Restrictive lung disease: Plan Pt is a 68 yo male with a past med hx of chronic resp failure with hypoxia and hypercapnia, severe COPD, CHF, cor pulmonale, DM, spindle cell carcinoma of thorax, ANANT, and BPH, who presents to the hospital on 02/04 for altered mental status in the setting of acute on chronic resp failure. Acute on chronic hypoxic hypercapnic respiratory failure Due to severe COPD, underlying lung cancer, +/- acute on chronic heart failure with history of cor pulmonale S/p Lasix x 1 in the ER with brisk diuresis VBG 7.0, CO2 above the limits of detection greater than 125 on admission, improved on Bipap and worsened off bipap Patient with pulmonary edema and suspected progressive cor pulmonale as noted. Lasix was given as noted. 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 Troponin is normal at 11.9. Lactate is normal on admission CTA discontinued - CXR shows congestion, will give extra dose IV lasix, also start zosyn as he has been febrile on occasion - Called sister. Sister is coming from [place] tomorrow, she states that brother Tyrel will be back from [facility] tomorrow and will see him in the evening or Monday. Discussed with sister today his poor prognosis and need for bipap or high flow oxygen and she states her and Tyrel have talked about wanting placement for him since they do not feel comfortable with him being home on his own given history of noncompliance with his oxygen/home CPAP. She states she will talk to him about his goals of care again and she will have Tyrel contact him to discuss the topic with him as well. Restrictive lung disease History of restrictive lung disease, COPD, spindle cell lung cancer Management of respiratory failure as noted above Cor pulmonale Lasix as noted Diabetes mellitus Type II DM Metformin held Sliding scale insulin goal [id number] while inpatient Patient's mental status currently precludes diet, fluids deferred due to volume overload DVT prophylaxis: Lovenox Admission and Anticipated Discharge Date Admission Date: February 05, 2024 Supervising Physician Co-Signing Physician Notes ATTESTATION I also saw the patient and confirmed huynh portions of the history and exam. I agree with the impression and plan in the resident documentation, and as summarized below. Patient is more awake today. He is able to sit up at the side of his bed. He is oriented and cooperative, but at times confused (asking repetitive questions). Whereas he was pretty clear with his advanced directive previously, he has now somewhat less clear with regards to CPR/intubation. He tells me today that he would like to be intubated but he does not want to be a " vegetable." I did discuss with him that at this stage in his disease process, and a pretty fair degree of medical certainty, if he were to be intubated, I would not think we would be able to wean him from the ventilator. I base this on the fact and explained to him that we were having difficulty even weaning him from the BiPAP to the high flow oxygen. His brother and sister, who assisted with the CODE STATUS discussion and hospice decision for, are not here today. There is a cousin at bedside during our visit. EXAM 122/71, 97, 20, 37.1, 94% on BiPAP Orientation as noted above Heart regular/tachycardic Lung sounds coarse; Transmitted upper airway sounds DATA Labs Hemoglobin 8.2, white blood cell count 10.2 Sodium 143, potassium 4.6, BUN 40, creatinine 1.07 Imaging Chest x-ray completed this morning shows cardiomegaly with evidence of congestive heart failure pulmonary edema, large right basilar opacity corresponding to known pulmonary lesion. Micro Blood cultures dated 02/26, taken this morning at 0759, pending IMPRESSION & PLAN Acute on chronic hypoxic hypercapnic respiratory failure Acute on chronic heart failure/Cor pulmonale Metabolic encephalopathy Hospice patient While his degree of alertness has improved, he is still disoriented and not at baseline. When his sensorium was clear, as an outpatient, it was clearly a DO NOT RESUSCITATE and DO NOT INTUBATE. The family had reaffirmed this when we talked yesterday. Today the patient talks about intubation if we were hopeful/anticipating a short-term process and anticipated being able to wean him; I explained to him today, as noted above, that I did not think this was very likely. Will need to rediscuss again when his brother/sister (POA) are present. In the meantime, he does look to be a little volume overloaded, so agree with diuresis. I think adding antibiotic coverage is within his previous goals of care discussion. Previously, he did not want to be intubated nor did he want any vasopressors; so would not initiate these without discussing with POA first. Additional per resident documentation Subjective Pt seen at bedside when on high flow nasal canula. He states that he feels pretty ill today. He states the bed is killing his back and giving a lot of pain. His breathing feels worse than baseline. No nausea or vomiting. No chest pain. Review of Systems Review of Systems: Per HPI. Physical Exam Physical Exam: General:Alert, HEENT: Normocephalic, moist oral mucosa Cardio: Tachycardic but regular rhythm, Resp:Increased resp effort, crackles bilaterally Skin: Warm, pink, dry, Results & Data Results & Data Vital Signs (Past 12 Hours) Vital Signs Temp Pulse Pulse Resp BP Pulse Ox O2 Del Method 02/07/24 06:15 38 C H 94 H 20 123/73 99 BiPAP 02/07/24 03:40 105 H 23 97 02/07/24 02:28 37.5 C 104 H 24 126/77 98 BiPAP 02/06/24 22:33 37.6 C H 100 H 18 134/72 95 BiPAP 02/06/24 22:32 74 27 H 96 02/06/24 22:24 101 H 02/06/24 20:22 98 H 20 91 02/06/24 19:38 BiPAP 02/06/24 19:22 37.1 C 100 H 18 117/66 98 BiPAP FiO2 02/07/24 06:15 90 02/07/24 03:40 90 02/07/24 02:28 100 02/06/24 22:33 02/06/24 22:32 100 02/06/24 22:24 02/06/24 20:22 100 02/06/24 19:38 100 02/06/24 19:22 Resident Activity Tracking Resident Involvement: Resident Care Provided Care Provided: Adult Hospital Medicine (2) CHF (congestive heart failure) Heart failure chronicity: acute Heart failure type: unspecified Qualified Code(s): I50.9 - Heart failure, unspecified
[2024-02-07 07:24] LABS: Base Excess VBG 13.6 mEq/L; HCO3 VBG 42 mmol/L; Oxygen Saturation VBG 85.9 %; PCO2 VBG 77 mmHg (38-50); PO2 VBG 51 mmHg; pH VBG 7.34 (7.36-7.41)
--- NOTE | 2024-02-07 07:28 | XRay Report ---
SINGLE VIEW CHEST CLINICAL HISTORY: Fever. Respiratory distress. FINDINGS: 2 AP, portable, upright chest radiographs are compared to study dated 02/05/2024. Correlation is made with chest CT dated 10/16/2023. The heart is enlarged noting atherosclerotic calcification of the thoracic aorta. There is pulmonary vascular congestion and interstitial edema. A large right bas ilar opacity similar to previous and consistent with a known mass lesion. There are small pleural eff usions with dependent consolidation. No pneumothorax is seen. The skeletal structures are osteopenic. The bony thorax is grossly intact. IMPRESSION: 1. Cardiomegaly with evidence of congestive failure and pulmonary edema. 2. A large right basilar opacity corresponds to a known mass lesion. 3. Pleural effusions with dependent consolidation. Correlate clinically for evidence of a superimpose d pneumonia. Radiographic follow-up to resolution is recommended. ACT 112: Negative or not required by law. Electronically signed by: Harsha Weeks M.D. 02/07/2024 7:25 AM
[2024-02-07 07:34] LABS: Basophils # (auto) 0.03 K/uL (0.00-0.20); Basophils % (auto) 0.3 %; Eosinophils # (auto) 0.02 K/uL (0.00-0.50); Eosinophils % (auto) 0.2 %; Hematocrit (blood only) 29.7 % (42.0-52.0); Hemoglobin 8.2 g/dl (14.0-18.0); Immature Granulocytes # (auto) 0.09 K/uL (0.01-0.20); Immature Granulocytes % (auto) 0.9 %; Lymphocytes # (auto) 1.36 K/uL (1.20-3.40); Lymphocytes % (auto) 13.3 %; Mean Corpuscular Hemoglobin 25.9 pg (25.0-34.0); Mean Corpuscular Hgb Conc 27.6 g/dL (32.0-36.0); Mean Platelet Volume 11.7 fL (9.4-12.4); Monocytes # (auto) 0.85 K/uL (0.11-0.59); Monocytes % (auto) 8.3 %; Neutrophils # (auto) 7.85 K/uL (1.40-6.50); Platelet Count 155 K/uL (130-400); RDW Coefficient of Variation 16.6 % (11.5-14.5); Red Blood Count 3.16 M/uL (4.70-6.10)
[2024-02-07 07:58] LABS: Albumin Globulin Ratio 1.2 (0.9-2); Albumin Level 3.6 gm/dl (3.4-5.0); BUN Creatinine Ratio 37.4 (10-20); Bilirubin,Total 0.3 mg/dl (0.2-1.0); Calcium 9.3 mg/dl (8.6-10.3); Creatinine Clr Calc Pharmacy 84.6 ml/min; Est GFR (African American) 81.7 ml/min; Est GFR (Non-African American) 70.5 ml/min; Potassium 4.6 mmol/L (3.5-5.1); Total Protein 6.6 gm/dl (6.0-8.3)
[2024-02-07] MEDS: FUROSEMIDE INJ 20 MG/2 ML VIAL IV ONE (16:23)
[2024-02-07] MEDS: 4.5GM X1 IV STA (16:23)
[2024-02-07] MEDS: PIPERACILLIN/TAZOBACTAM 4.5 GM/100 ML BAG IV SCH (21:35)
[2024-02-08] MEDS: KETOROLAC TROMETHAMINE 15 MG/ML VIAL IV ONE (01:51)
[2024-02-08 06:29] LABS: Base Excess ABG 13.6 mEq/L (-9-1.8); HCO3 ABG 44 mmol/L (19-24); Oxygen Saturation ABG 98.1 % (90-95); PCO2 ABG 85 mmHg (35-46); PO2 ABG 97 mmHg (80-95); pH ABG 7.32 (7.35-7.45)
[2024-02-08 06:31] LABS: Allen Test Pos (Pos)
--- NOTE | 2024-02-08 06:46 | Hospitalist Progress Note ---
Date of Service February 08, 2024 Assessment & Plan (1) Acute respiratory failure with hypoxia and hypercapnia: (2) CHF (congestive heart failure): (3) Cor pulmonale: (4) Diabetes mellitus: (5) Goals of care, counseling/discussion: (6) Restrictive lung disease: Plan Pt is a 68 yo male with a past med hx of chronic resp failure with hypoxia and hypercapnia, severe COPD, CHF, cor pulmonale, DM, spindle cell carcinoma of thorax, ANANT, and BPH, who presents to the hospital on 02/04 for altered mental status in the setting of acute on chronic resp failure. Acute on chronic hypoxic hypercapnic respiratory failure Due to severe COPD, underlying lung cancer, +/- acute on chronic heart failure with history of cor pulmonale S/p Lasix x 1 in the ER with brisk diuresis VBG 7.0, CO2 above the limits of detection greater than 125 on admission, improved on Bipap and worsened off bipap Patient with pulmonary edema and suspected progressive cor pulmonale as noted. Lasix was given as noted. 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 Troponin is normal at 11.9. Lactate is normal on admission CTA discontinued - CXR shows congestion again today that looks maybe worse from yesterday, will give extra dose IV lasix again today, - continue zosyn as he has been febrile on occasion - Pt awaiting his brother Tyrel to talk further about further interventions he would or would not want done and overall goals of his care. Continue bipap for resp distress. Restrictive lung disease History of restrictive lung disease, COPD, spindle cell lung cancer Management of respiratory failure as noted above Cor pulmonale Lasix as noted Diabetes mellitus Type II DM Metformin held Sliding scale insulin goal [id number] [id number] while inpatient Patient's mental status currently precludes diet, fluids deferred due to volume overload DVT prophylaxis: Lovenox Admission and Anticipated Discharge Date Admission Date: February 05, 2024 Supervising Physician Co-Signing Physician Notes ATTESTATION I also saw the patient and confirmed huynh portions of the history and exam. I agree with the impression and plan in the resident documentation, and as summarized below. Patient is even more awake today. He also seems less anxious today. Sister is at bedside. Brother to be back in the area later today. EXAM 141/85, 99, 19, 36.4, 89% on high flow nasal cannula Orientation as noted above Heart regular/tachycardic Lung sounds coarse; Transmitted upper airway sounds DATA Labs Hemoglobin 9.0, white blood cell count 10.4 Sodium 142, potassium 3.9, BUN 30, creatinine 1.17 Imaging Chest x-ray completed this morning shows cardiomegaly and moderate edema; some progression compared to yesterday. Micro Blood cultures dated 02/26 show no growth at 24 hours. IMPRESSION & PLAN Acute on chronic hypoxic hypercapnic respiratory failure Acute on chronic heart failure/Cor pulmonale Metabolic encephalopathy Hospice patient Patient sensorium/alertness continues to improve; less anxiety than compared to yesterday. Again had conversation with the patient today and sister at bed side regarding goals of care. I again explained to him that given his end-stage pulmonary disease, intubation and ventilation would not be something we would anticipate weaning him off of. Additionally, discussed that if his heart were to stop, CPR would not be successful without intubation and ventilation. These had been items he had been against when we first talked in the office and he elected hospice. Today, he would be interested in continuing the current care, including medicines for diuresis and antibiotics. He will be interested in aggressive medical care, but DO NOT RESUSCITATE and DO NOT INTUBATE. We did discuss that this is a change from previous, and not entirely consistent with hospice care. He realizes this; he will revisit hospice once/if he is able to return to his baseline from this current episode. His brother, whom he is probably the closest with, is due home from a trip later today. Sister indicated that the two of them would probably talk; they do not seem comfortable with the plan as outlined above for the moment. 1) Continue BiPAP; transition to high flow nasal for conversations, eating, and as tolerated for comfort. 2) Clinically and radiographically looks a little bit wet today; we have additional dose of IV Lasix 3) Continue Zosyn 4) Repeat chest x-ray in a.m. Additional per resident documentation Subjective Today, this morning at bedside while on bipap. He was very fatigued appearing and with increased resp effort. He did open eyes to verbal stimuli. No complaints of pain. Assessed in the afternoon with family and while fatigued appearing he was awake and alert. He talked today about how if his heart were to stop and he were to need intubation he would not want that. He states otherwise for other interventions he would like to talk to his brother Tyrel about it later tonight or tomorrow. Review of Systems Review of Systems: Per HPI. Physical Exam Physical Exam: General:Awake but fatigued, moderately increased resp effort, some resp distress HEENT: Normocephalic, Cardio: Tachycardic but regular rhythm, Resp:Increased resp effort, crackles bilaterally Skin: Warm, pink, dry, Results & Data Results & Data Vital Signs (Past 12 Hours) Vital Signs Temp Pulse Pulse Resp BP Pulse Ox O2 Del Method 02/08/24 06:08 120 H 21 96 02/08/24 06:00 36.8 C 118 H 26 H 149/78 H 96 BiPAP 02/08/24 04:19 92 H 18 93 High Flow Nasal Cannula 02/08/24 00:56 80 18 94 High Flow Nasal Cannula 02/07/24 22:45 87 21 95 02/07/24 22:18 36.9 C 97 H 18 137/81 96 High Flow Nasal Cannula 02/07/24 21:35 101 H 02/07/24 20:07 82 18 93 High Flow Nasal Cannula 02/07/24 20:00 High Flow Nasal Cannula 02/07/24 19:54 37.2 C 90 20 132/69 94 High Flow Nasal Cannula O2 Flow Rate FiO2 02/08/24 06:08 80 02/08/24 06:00 90 02/08/24 04:19 30 85 02/08/24 00:56 30 80 02/07/24 22:45 80 02/07/24 22:18 02/07/24 21:35 02/07/24 20:07 30 80 02/07/24 20:00 02/07/24 19:54 Resident Activity Tracking Resident Involvement: Resident Care Provided Care Provided: Adult Hospital Medicine (2) CHF (congestive heart failure) Heart failure chronicity: acute Heart failure type: unspecified Qualified Code(s): I50.9 - Heart failure, unspecified
[2024-02-08 06:52] LABS: Basophils # (auto) 0.03 K/uL (0.00-0.20); Basophils % (auto) 0.3 %; Eosinophils # (auto) 0.14 K/uL (0.00-0.50); Eosinophils % (auto) 1.3 %; Hematocrit (blood only) 31.9 % (42.0-52.0); Immature Granulocytes # (auto) 0.04 K/uL (0.01-0.20); Immature Granulocytes % (auto) 0.4 %; Lymphocytes # (auto) 1.52 K/uL (1.20-3.40); Lymphocytes % (auto) 14.6 %; Mean Corpuscular Hgb Conc 28.2 g/dL (32.0-36.0); Mean Corpuscular Volume 92.2 fL (80.0-100.0); Mean Platelet Volume 11.6 fL (9.4-12.4); Monocytes # (auto) 0.59 K/uL (0.11-0.59); Monocytes % (auto) 5.7 %; Neutrophils # (auto) 8.08 K/uL (1.40-6.50); Neutrophils % (auto) 77.7 %; Platelet Count 158 K/uL (130-400); RDW Coefficient of Variation 16.5 % (11.5-14.5); RDW Standard Deviation 55.7 fL (36.4-46.3); Red Blood Count 3.46 M/uL (4.70-6.10)
[2024-02-08 07:20] LABS: BUN Creatinine Ratio 25.6 (10-20); Blood Urea Nitrogen 30 mg/dl (6-23); Calcium 9.6 mg/dl (8.6-10.3); Carbon Dioxide > 45 mmol/L (21-32); Chloride 93 mmol/L (98-107); Creatinine Clr Calc Pharmacy 77.5 ml/min; Est GFR (African American) 73.3 ml/min; Est GFR (Non-African American) 63.2 ml/min; Glucose 153 mg/dl (70-99(Fasting)); Potassium 3.9 mmol/L (3.5-5.1); Sodium 142 mmol/L (136-145)
--- NOTE | 2024-02-08 07:35 | XRay Report ---
XR chest 1V portable CLINICAL HISTORY: AHRF TECHNIQUE: Single frontal radiograph of the chest was obtained. Comparison: Comparison is made to chest radiograph 02/07/2024 FINDINGS: No lines and tubes are seen. Cardiomegaly is noted. There is prominence and cephalization of the vasc ulature with Chloe B lines seen. Likely bilateral pleural effusions with bibasilar airspace opacitie s. IMPRESSION: 1. Cardiomegaly and moderate pulmonary edema. 2. Small bilateral pleural effusions with likely atelectasis. Superimposed consolidation cannot be e xcluded. ACT 112: Negative or not required by law. Electronically signed by: Paulie Anderson M.D. 02/08/2024 7:34 AM
[2024-02-08] MEDS: FUROSEMIDE 40 MG/4 ML VIAL IV ONE (14:20)
[2024-02-08] MEDS: PNEUMOCOCCAL VACCINE (PCV20) 20-VAL CONJ-DIP CRM/PF 0.5 ML SYR IM ONE (16:54)
[2024-02-08] MEDS: MoRPHine SULFATE 2 MG/ML CARP IV STA (16:55)
[2024-02-09 06:53] LABS: HCO3 VBG 54 mmol/L; Oxygen Saturation VBG < 60.0 %; PCO2 VBG 76 mmHg (38-50); PO2 VBG 25 mmHg; pH VBG 7.46 (7.36-7.41)
[2024-02-09 07:13] LABS: Basophils # (auto) 0.03 K/uL (0.00-0.20); Basophils % (auto) 0.3 %; Eosinophils # (auto) 0.05 K/uL (0.00-0.50); Eosinophils % (auto) 0.4 %; Hematocrit (blood only) 30.4 % (42.0-52.0); Immature Granulocytes # (auto) 0.09 K/uL (0.01-0.20); Immature Granulocytes % (auto) 0.8 %; Mean Corpuscular Hemoglobin 26.1 pg (25.0-34.0); Mean Corpuscular Hgb Conc 29.6 g/dL (32.0-36.0); Mean Corpuscular Volume 88.1 fL (80.0-100.0); Mean Platelet Volume 11.9 fL (9.4-12.4); Monocytes # (auto) 1.04 K/uL (0.11-0.59); Monocytes % (auto) 8.9 %; Neutrophils # (auto) 9.72 K/uL (1.40-6.50); Neutrophils % (auto) 83.6 %; Platelet Count 179 K/uL (130-400); RDW Coefficient of Variation 16.1 % (11.5-14.5); RDW Standard Deviation 52.4 fL (36.4-46.3); Red Blood Count 3.45 M/uL (4.70-6.10); White Blood Count 11.63 K/ul (4.8-10.8)
[2024-02-09 07:22] LABS: BUN Creatinine Ratio 20.5 (10-20); Blood Urea Nitrogen 24 mg/dl (6-23); Calcium 9.4 mg/dl (8.6-10.3); Carbon Dioxide > 45 mmol/L (21-32); Chloride 92 mmol/L (98-107); Creatinine Clr Calc Pharmacy 76.3 ml/min; Est GFR (African American) 73.3 ml/min; Est GFR (Non-African American) 63.2 ml/min; Glucose 137 mg/dl (70-99(Fasting)); Potassium 4.7 mmol/L (3.5-5.1); Sodium 144 mmol/L (136-145)
--- NOTE | 2024-02-09 07:48 | XRay Report ---
XR chest 1V portable HISTORY: AHRF COMPARISON: Chest 02/08/2024. FINDINGS: No pneumothorax. The heart remains enlarged. Perihilar interstitial thickening and hazy air space opacities persist consistent with moderate pulmonary edema. Small bilateral pleural effusions a nd bibasilar densities again noted. No acute fractures. IMPRESSION: 1. No change in the moderate pulmonary edema. 2. Small bilateral pleural effusions and bibasilar densities persist. ACT 112: Negative or not required by law. Electronically signed by: Marko Kwong M.D. 02/09/2024 7:47 AM
[2024-02-09] MEDS ORDERED: ONDANSETRON INJ 2 MG/ML 2 ML VIAL IV PRN (12:27)
[2024-02-09] MEDS ORDERED: chlorproMAZINE HCL 25 MG TAB PO PRN (12:27)
[2024-02-09] MEDS ORDERED: GLYCOPYRROLATE 0.2 MG/ML VIAL IV PRN (12:27)
[2024-02-09] MEDS: HYDROmorphone INJ 0.5 MG/0.5 ML SYR IV PRN (13:46)
--- NOTE | 2024-02-09 13:49 | Hospitalist Progress Note ---
Date of Service February 09, 2024 Assessment & Plan (1) Acute respiratory failure with hypoxia and hypercapnia: (2) CHF (congestive heart failure): (3) Cor pulmonale: (4) Diabetes mellitus: (5) Goals of care, counseling/discussion: (6) Restrictive lung disease: Plan Pt is a 68 yo male with a past med hx of chronic resp failure with hypoxia and hypercapnia, severe COPD, CHF, cor pulmonale, DM, spindle cell carcinoma of thorax, ANANT, and BPH, who presents to the hospital on 02/04 for altered mental status in the setting of acute on chronic resp failure. Spoke with patient and POA brother Tyrel at bedside today. Both in agreement for transition to comfort care only at this point in time as pt has not improved on several days of bipap. Will provide comfort measures from this point forward, pt can continue high flow nasal canula and bipap for comfort purposes. Acute on chronic hypoxic hypercapnic respiratory failure Due to severe COPD, underlying lung cancer, +/- acute on chronic heart failure with history of cor pulmonale S/p Lasix x 1 in the ER with brisk diuresis VBG 7.0, CO2 above the limits of detection greater than 125 on admission, i mproved on Bipap and worsened off bipap Patient with pulmonary edema and suspected progressive cor pulmonale as noted. Lasix was given as noted. 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 Troponin is normal at 11.9. Lactate is normal on admission CTA discontinued - CXR shows moderate congestion despite lasix - zosyn stopped due to reason above of transition of care Restrictive lung disease History of restrictive lung disease, COPD, spindle cell lung cancer Management of respiratory failure as noted above Admission and Anticipated Discharge Date Admission Date: February 05, 2024 Supervising Physician Co-Signing Physician Notes I personally examined the patient and verified huynh points of history and exam, discussed case, and agree with decision making and plan documented by Dr. Linn. Patient evaluated with his family at bedside today. Patient's brother Tyrel CLEMONS expressed concern for patient's comfort. Overnight, patient was attempting to remove BiPAP and was getting aggressive. On exam today, patient was placed on high flow oxygen and comfort measures discussed. Patient does not want morphine but is open to Dilaudid therapy. We discussed Ativan for anxiety as well as additional medications to support him during this process. Patient was agreeable and his family was supportive. Patient will be evaluated for GIP by hospice. Comfort measures initiated. Subjective Pt seen at bedside this morning, on bipap so unable to understand, also noted to be in moderate resp distress. Called pt's KRISTIEA brother Tyrel, who was able to meet at bedside with family. Pt at that time was taken off bipap and onto high flow nasal canula, able to talk but appeared very fatigue and would sometimes day things that did not quite make sense. However, when asked about wishes to keep comfortable, admitted he was tired and felt awful and that he would like to be kept comfortable, okay with things like ativan and dilaudid, does not want morphine. Tyrel present and in agreement to transition care at this point to comfort measures due to continually worsening respiratory status despite bipap and high flow oxygen. Review of Systems Review of Systems: Per HPI. Physical Exam Physical Exam: General:Intermittently awake but very fatigued, significant increased resp effort and resp distress HEENT: Normocephalic, Cardio: Tachycardic but regular rhythm, Resp:Poor air movement throughout all lung [place], crackles heard bilaterally Skin: Warm, pink, Results & Data Results & Data Vital Signs (Past 12 Hours) Vital Signs Temp Pulse Pulse Resp BP Pulse Ox O2 Del Method 02/09/24 12:18 100 H 20 88 L High Flow Nasal Cannula 02/09/24 10:44 105 H 20 88 L High Flow Nasal Cannula 02/09/24 09:29 High Flow Nasal Cannula 02/09/24 08:00 111 H 02/09/24 07:59 37.1 C 114 H 16 113/64 86 L High Flow Nasal Cannula 02/09/24 07:20 107 H 20 91 High Flow Nasal Cannula 02/09/24 06:05 111 H 30 H 93 02/09/24 05:17 106 H 28 H 82 L High Flow Nasal Cannula 02/09/24 04:50 109 H 28 H 89 L 02/09/24 04:24 36.8 C 125 H 25 H 109/63 02/09/24 03:16 112 H 25 H 92 High Flow Nasal Cannula 02/09/24 02:21 98 H 24 95 High Flow Nasal Cannula O2 Flow Rate FiO2 02/09/24 12:18 60 100 02/09/24 10:44 60 100 02/09/24 09:29 60 100 02/09/24 08:00 02/09/24 07:59 60 02/09/24 07:20 60 100 02/09/24 06:05 100 02/09/24 05:17 60 100 02/09/24 04:50 100 02/09/24 04:24 02/09/24 03:16 60 100 02/09/24 02:21 40 90 Resident Activity Tracking Resident Involvement: Resident Care Provided Care Provided: Adult Hospital Medicine (2) CHF (congestive heart failure) Heart failure chronicity: acute Heart failure type: unspecified Qualified Code(s): I50.9 - Heart failure, unspecified
[2024-02-09] MEDS: HYDROmorphone INJ 0.5 MG/0.5 ML SYR IV STA (16:04)
[2024-02-09 17:14] VITALS: TEMP 98.2
[2024-02-09] MEDS: LORazepam 2 MG/1 ML VIAL IV PRN ×2 (20:53→23:21)
[2024-02-09 21:35] VITALS: BP 135/70; PULSE 98
[2024-02-09 23:09] VITALS: O2SAT 95
[2024-02-10 04:55] VITALS: RESP 17
--- NOTE | 2024-02-10 07:30 | Death Pronouncement Note ---
Date of Service February 10, 2024 Pronouncement Note Admission Date February 05, 2024 Preliminary Cause of (1) Acute respiratory failure with hypoxia and hypercapnia: (2) CHF (congestive heart failure): Heart failure chronicity: acute Heart failure type: unspecified Qualified Code(s): I50.9 - Heart failure, unspecified (3) Cor pulmonale: (4) Restrictive lung disease: Summary I was called to pronounce the of Dawit Perdomo ( 1955) by nursing staff Misael Garvey on February 10, 2024. Upon entering the room, patient was found to be in a terminal state. They were unresponsive to, and did not withdrawal from, verbal or tactile stimuli. They were unresponsive to corneal and pupillary. On cardiopulmonary exam, they were found to be without detectable carotid pulses, and without spontaneous heart tones or respirations. Time of was pronounced by me on 02/10/2024 at 0720. Attending physician was notified was notified. Next of kin brother Tyrel was notified by phone call shortly after. Signed: Michaelle Linn DO Additional Data Attending physician: Supriya Morrison DO Supervising Physician Co-Signing Physician Notes As attending physician, I agree with documentation of Dr. Linn.
--- NOTE | 2024-02-10 08:46 | Discharge Summary ---
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 She did call the hospice nurse to evaluate Mr. Perdomo however she arrived at the same time as EMS and he was taken emergently to the ER. While in the ER he is hypotensive, hypoxic, borderline febrile, and tachycardic. Bio fire is negative. VBG is with pCO2 greater than the limits of detection, greater than 125. pH 7.01. Patient was placed on Levophed, and hospitalist services were consulted for admission. He had a GCS of 3 in the ER, was not intubated due to clear expression of DNR/DNI wishes both on file and to family previously. Collateral is collected from family at time of bedside assessment, patient is obtunded and no information is available due to mental status from patient. Family reports that he has been much more confused in the last week or 2. He is generally uncomfortable and pulls off his oxygen, and does not like wearing his BiPAP at home. He does tend to be more confused in the evenings. He recently enrolled in hospice. He had not had any fevers, chills, sweats, cough or new cold-like symptoms recently to family's knowledge. Reviewed his underlying disease, and critical illness at time of admission. Discussed that with optimal medical therapy goal would be [facility] - 2 weeks [facility]. Family is going to call patient's brother Tyrel who is his designated power of workers compensation attorney, in the event of his absence his sister Miesha would be his next surrogate decision maker. Family at bedside do report that escalation to ICU level of care and vasopressors, are not within [facility] goals of care. He would not want ICU, central lines, invasive procedures, or intubation under any circumstances. They believe that he would most likely want to focus on comfort oriented measures however they note the most important factor for him was always to be home and did not be in the hospital and patient is currently too ill for transport back home. Reviewed potential for PPV, conservative interventions, and further evaluation of respiratory failure with CTA on PCU with no escalation of care, and option for comfort measures with family at bedside. They would like to discuss this between themselves and with his brother Tyrel by phone. _ Following family meeting including patient's brother and medical POA Tyrel they would to defer any additional testing including CAT scans and diagnostics other than VBG. They would like to give a few hours, around to 2-hour checks to see if he is making any meaningful improvement on BiPAP with clinical improvement in his mentation or significant improvement on his ABG. If he was able to mentate with then like to include him in conversation, and ultimately stabilize him for a goal of returning to home on hospice. If he does not make improvements in mentation over the next few hours, or clinically declines at any point and they would like to move to [facility] within the hospital. In the setting as Dawit has consistently reported that he did not want wish to wear BiPAP as an outpatient would not want to continue to wear it just to try to extend his life they would like to move [facility], remove BiPAP, and keep him as comfortable as possible on easel cannula oxygen only for comfort. They are aware that nasal cannula oxygen does not help with hypercapnia, and that outside of intubation BiPAP/PPV is the only measure that meaningfully will improve this. Admission Exam Per Admitting Provider General: Obtunded. Withdraws slightly to noxious stimuli HEENT: Atraumatic, normocephalic. On BiPAP. Pupils reactive to light bilater ally Pulm: Globally diminished, coarse. Symmetrical chest rise. No increased work of breathing. No respiratory distress. Cardiac: RRR, -mrg. Radial pulses intact and symmetrical. Abdominal: Nontender, nondistended, soft. BS present. Principal Diagnosis Acute on chronic respiratory failure Discharge Exam General:Terminal appearing, unresponsive HEENT: Absent pupillary light reflex or corneal reflex Cardio: No appreciable pulse, no appreciable heart sounds on exam Resp:No appreciable lung sounds, no spontaneous respirations Discharge Data Allergies Allergy/AdvReac Type Severity Reaction Status Date / Time No Known Allergies Allergy Verified 02/05/24 17:22 Consultations 02/05/24 16:37 ED Decision to Admit Stat Ordered Studies 02/05/24 14:00 CT head/brain wo con Stat 02/05/24 16:32 CT angio chest PE protocol Stat Hospital Course (1) Acute respiratory failure with hypoxia and hypercapnia: (2) CHF (congestive heart failure): (3) Cor pulmonale: (4) Restrictive lung disease: Plan Pt is a 68 yo male with a past med hx of chronic resp failure with hypoxia and hypercapnia, severe COPD, CHF, cor pulmonale, DM, spindle cell carcinoma of thorax, ANANT, and BPH, who presents to the hospital on 02/04 for altered mental status in the setting of acute on chronic resp failure. Pt seen at bedside this morning for pronouncement as respirations ceased just prior to 7 am this morning. No appreciable life noted. Pt presented to the hospital for acute on chronic resp failure in the setting of end stage COPD, heart failure, known lung cancer, known cor pulmonale, known ANANT, among other chronic conditions. He was transitioned on 02/08 to [facility] after several days of bipap/high flow nasal oxygen failed to improve his respiratory status and pt required almost 24/7 bipap with continued respiratory distress and air hunger despite bipap treatment. Pt was kept comfortable over the last 24 hours prior to passing this morning of natural causes. Time of was 0720 on 02/10/2024. See pronouncement note. Total Time Total Time Spent Total Time Spent (In Minutes): As per attending attestation. Discharge Plan Discharge Items Patient Disposition: Other Date/Time: 02/10/24 07:20 Supervising Physician Co-Signing Physician Notes I personally examined the patient and verified huynh points of history and exam, discussed case, and agree with decision making and plan documented by Dr. Linn. Patient placed on comfort measures only yesterday and this morning due to acute respiratory failure. Resident Activity Tracking Resident Involvement: Resident Care Provided Care Provided: Adult Hospital Medicine
== END 2024-02-10 09:25 | disposition expired | DRG 189 ==
LOC: ED 13:36 → 2S 20:33 → SUATTDRO 20:40 → 2S 20:40 → 3W 02-09 22:53